=== PATIENT | female | born 1935 | race Caucasian/White ===

== ENCOUNTER → 2016-07-08 | Outpatient (CLI) | payer BC ==
[~2016-07-08] MED LIST: ATV1 PO; BNC40 PO; CALCTAB5 PO; CETI10TA84 PO; CHOL100040 PO; DLN100 PO; LEVO50TA6 PO; LSX20 PO; PHEN16.2 PO; TNR50 PO
[2016-07-08 13:26] LABS: BASO % 0.9 %; BASO ABS # 0.07 K/uL (0-0.2); COMPLETE YES; EOS % 3.9 %; HEMATOCRIT 38.2 % (37-47); IG% 0.4 %; LYMPH % 43.5 %; LYMPH ABS # 3.34 K/uL (1.2-3.4); MEAN CELL VOLUME 97.7 fL (80-100); MEAN CORPUSCULAR HEMOGLOBIN 33.5 pg (25-34); MEAN CORPUSCULAR HGB CONC 34.3 g/dl (32-36); MEAN PLATELET VOLUME 10.2 fL (7.4-10.4); MONO % 11.9 %; NEUT % 39.4 %; PLATELET COUNT 211 K/uL (130-400); RED BLOOD COUNT 3.91 M/uL (4.2-5.4); WHITE BLOOD COUNT 7.67 K/uL (4.8-10.8)
[2016-07-08 14:25] LABS: PHENOBARBITAL 21.3 mcg/mL (15.0-40.0)
[2016-07-08 15:03] LABS: ALT/SGPT 24 U/L (12-78); AST/SGOT 21 U/L (15-37); BLOOD UREA NITROGEN 12 mg/dl (7-18); BUN/CREATININE RATIO 14.6 (10-20); CALCIUM 8.5 mg/dl (8.5-10.1); CARBON DIOXIDE 29 mmol/L (21-32); CHLORIDE 100 mmol/L (98-107); CHOLESTEROL 254 mg/dl (0-200); CHOLESTEROL/HDL RATIO 2.9; CREATININE 0.83 mg/dl (0.60-1.20); GLUCOSE 72 mg/dl (70-99); HDL CHOLESTEROL 88 mg/dl; LDL CHOLESTEROL CALCULATED 147 mg/dl; POTASSIUM 4.2 mmol/L (3.5-5.1); SODIUM 135 mmol/L (136-145); TRIGLYCERIDES 95 mg/dl (0-150); VERY LOW DENSITY LIPOPROT CALC 19 mg/dl
[2016-07-08 15:13] LABS: ALB/GLOB RATIO 1.1 (0.9-2); ALKALINE PHOSPHATASE 95 U/L (45-117)
--- NOTE | 2016-07-15 07:03 | CODING QUERY MEDICAL NECESSITY ---
CQSUPPORTING DIAGNOSIS NEEDED A supporting diagnosis is required for the test/procedure performed on this patient in order for us to be reimbursed by the patient's insurance. Please provide a supporting diagnosis for the following test/procedure listed below next to the test name along with your signature. *If there is no additional diagnosis for this patient that would support the following test/procedure please document that below next to the test/procedure. Test(s)/Procedure(s) that require a supporting diagnosis: DOS 07/08/16 CONTROLLED SUBSTANCE (PHENOBARBITOL) Provider Signature: Date: Thank you Sandie Ragsdale Health Information Management Once completed, please kindly fax back to [phone] For questions please call [phone]
== END | disposition home or self-care (01) ==
LOC: C.LABBC 11:32
PROVIDERS: ATTEND Internal Medicine Geriatric Medicine
DX: I10 Essential (primary) hypertension (principal); E78.5 Hyperlipidemia, unspecified; M81.0 Age-related osteoporosis without current pathological fracture; E55.9 Vitamin D deficiency, unspecified; E03.9 Hypothyroidism, unspecified; K80.20 Calculus of gallbladder without cholecystitis without obstruction

== ENCOUNTER → 2016-07-23 | Outpatient (CLI) | payer BC | END | disposition home or self-care (01) | LOC: C.LABBC 13:54 | PROVIDERS: ATTEND Internal Medicine Geriatric Medicine | DX: G40.909 Epilepsy, unspecified, not intractable, without status epilepticus (principal) ==

== ENCOUNTER → 2016-08-05 | Outpatient (CLI) | payer BC | END | disposition home or self-care (01) | LOC: C.LABSPEC 11:10 | PROVIDERS: ATTEND Internal Medicine Geriatric Medicine | DX: I10 Essential (primary) hypertension (principal) ==

== ENCOUNTER → 2016-08-12 | Outpatient (CLI) | payer BC ==
[2016-08-12 14:51] LABS: BLOOD UREA NITROGEN 11 mg/dl (7-18); BUN/CREATININE RATIO 12.6 (10-20); CALCIUM 9.3 mg/dl (8.5-10.1); CARBON DIOXIDE 32 mmol/L (21-32); CHLORIDE 101 mmol/L (98-107); CREATININE 0.86 mg/dl (0.60-1.20); GLUCOSE 98 mg/dl (70-99); POTASSIUM 3.5 mmol/L (3.5-5.1); SODIUM 138 mmol/L (136-145)
== END | disposition home or self-care (01) ==
LOC: C.LAB 09:19
PROVIDERS: ATTEND Physician Assistant Medical
DX: G40.909 Epilepsy, unspecified, not intractable, without status epilepticus (principal)

== ENCOUNTER → 2016-11-18 | Outpatient (CLI) | payer BC ==
--- NOTE | 2016-11-18 15:24 | MAMMOGRAPHY REPORT ---
BILATERAL DIGITAL SCREENING MAMMOGRAM WITH CAD: 11/18/2016 CLINICAL HISTORY: Routine screening. Patient has no complaints. TECHNIQUE: Bilateral CC and MLO views were obtained. Current study was also evaluated with a Compute r Aided Detection (CAD) system. COMPARISON: Comparison is made to exams dated: 11/17/2015 mammogram, 10/31/2014 mammogram, 10/29/2013 cassia mogram, 10/28/2012 mammogram, 10/28/2011 mammogram, and 10/26/2010 mammogram - [facility]. BREAST COMPOSITION: The tissue of both breasts is almost entirely fatty. FINDINGS: There are scattered round microcalcifications bilaterally, stable compared to prior mammogr ams. No new suspicious mass, architectural distortion or cluster of microcalcifications is seen. IMPRESSION: ACR BI-RADS CATEGORY 1: NEGATIVE There is no mammographic evidence of malignancy. A 1 year screening mammogram is recommended. The pa tient will receive written notification of the results. Approximately 10% of breast cancers are not detected with mammography. A negative mammographic report should not delay biopsy if a clinically suggestive mass is present. Kavita Starkey M.D. ay/:11/18/2016 12:47:40 Upholstery Trimmer: Heidi GARCÍA(R)(M), [facility] letter sent: Normal 1/2 BI-RADS Code: ACR BI-RADS Category 1: Negative
== END | disposition home or self-care (01) ==
LOC: C.MAMM 12:16
PROVIDERS: ATTEND Internal Medicine Geriatric Medicine
DX: Z12.31 Encounter for screening mammogram for malignant neoplasm of breast (principal)

== ENCOUNTER → 2017-01-18 | Outpatient (CLI) | payer BC | END | disposition home or self-care (01) | LOC: C.LABBC 11:25 | PROVIDERS: ATTEND Internal Medicine Geriatric Medicine | DX: D47.2 Monoclonal gammopathy (principal) ==

== ENCOUNTER → 2017-06-06 | Outpatient (CLI) | payer BC ==
[2017-06-06 17:40] LABS: ALBUMIN 3.6 gm/dl (3.4-5.0); ALT/SGPT 22 U/L (12-78); BLOOD UREA NITROGEN 13 mg/dl (7-18); CALCIUM 9.1 mg/dl (8.5-10.1); CARBON DIOXIDE 31 mmol/L (21-32); CHOLESTEROL 241 mg/dl (0-200); CREATININE 0.74 mg/dl (0.60-1.20); GLUCOSE 77 mg/dl (70-99); POTASSIUM 4.4 mmol/L (3.5-5.1); SODIUM 138 mmol/L (136-145)
[2017-06-06 17:43] LABS: ALKALINE PHOSPHATASE 96 U/L (45-117); AST/SGOT 20 U/L (15-37); LDL CHOLESTEROL CALCULATED 128 mg/dl; TOTAL PROTEIN 7.5 gm/dl (6.4-8.2)
== END | disposition home or self-care (01) ==
LOC: C.LAB1850 16:29
PROVIDERS: ATTEND Physician Assistant Medical
DX: I10 Essential (primary) hypertension (principal); E78.5 Hyperlipidemia, unspecified; E03.9 Hypothyroidism, unspecified; G40.909 Epilepsy, unspecified, not intractable, without status epilepticus

== ENCOUNTER → 2017-06-11 | Outpatient (CLI) | payer BC ==
--- NOTE | 2017-06-11 16:02 | DIAGNOSTIC IMAGING REPORT ---
BILATERAL LOWER EXTREMITY VENOUS DOPPLER HISTORY: R60.0 Bilateral edema of lower extremity COMPARISON STUDY: None. FINDINGS: There is normal compressibility, flow, and augmentation within the bilateral lower extremity deep venous systems. IMPRESSION: No DVT within the right or left lower extremity. Electronically signed by: Sanju Riley M.D. 06/11/2017 4:00 PM Dictated Date/Time: 06/11/2017 4:00 PM
== END | disposition home or self-care (01) ==
LOC: C.ULTRBC 15:04
PROVIDERS: ATTEND Internal Medicine Geriatric Medicine
DX: R60.0 Localized edema (principal)

== ENCOUNTER → 2017-11-11 | Day surgery (SDC) | payer BC ==
[2017-10-07 10:14] VITALS: Ht 152.4 cm; Wt 74.1 kg
[~2017-11-11] VITALS: Ht 152.4 cm; Wt 74.1 kg
[~2017-11-11] MED LIST changes: +500ML BSS 0.3ML EPI 1:1000PF IRRIG ONE; +ACETAMINOPHEN 325 MG TAB PO PRN; +AMVISC PLAIN 0.8ML SYRINGE INT OCU ONE; +AMVISC PLUS 0.8ML SYRINGE INT OCU ONE; +ATROPINE SULFATE 0.1 MG/ML 5ML SYR IV PRN; -BNC40 PO; +BSS FLUSH ONE; +CALC600T9 PO; -CALCTAB5 PO; -CETI10TA84 PO; -CHOL100040 PO; +CHOL1TAB79 PO; +EpHEDrine SULFATE INJ 50 MG/ML AMP IV PRN; +EpINEphrine INJ 1MG/ML AMP 1 MG/ML AMP ONE; +GABA-112 PO; +LACTATED RINGER'S 1000ML 500 ML IV SCH; +LIDOCAINE 3.5% OPH GEL PER APPLICATION CHARGE ONE; +LIDOCAINE HCL 1% MPF 2 ML VIAL ONE; +LOSA1TAB38 PO; -LSX20 PO; +MIDAZOLAM HCL 1 MG/ML 2ML VIAL ONE; +POVIDONE-IODINE OP SOLN 30 ML BTL ONE; +PROPARACAINE 0.5% OP SOLN PER DROP CHARGE OPR SCH; +TOBRAMYCIN/DEXAMETHASONE OPH OINT PER APPLN CHARGE ONE
[2017-11-11] MEDS: PHENYLEPHRINE HCL 2.5% OP SOLN PER DROP CHARGE OPR SCH ×2 (11:07→11:12)
[2017-11-11] MEDS: TROPICAMIDE 1% OP SOLN PER DROP CHARGE OPR SCH ×2 (11:08→11:13)
[2017-11-11] MEDS: CYCLOPENTOLATE HCL 1% OP SOLN PER DROP CHARGE OPR SCH ×2 (11:09→11:14)
[2017-11-11] MEDS: KETOROLAC 0.5% OP SOLN PER DROP CHARGE OPR SCH ×2 (11:10→11:15)
[2017-11-11] MEDS: GATIFLOXACIN OP SOLN PER DROP CHARGE OPR SCH ×2 (11:11→11:19)
--- NOTE | 2017-11-11 11:38 | History & Physical Bridge - SC ---
H&P Re-Evaluation Bridge Note: I have examined the patient, reviewed the History & Physical and in the interval since the performance of the History & Physical I have noted the following changes of clinical significance: No changes noted
--- NOTE | 2017-11-11 12:13 | [facility] Operative Report ---
Operative Report Date of Service Nov 11, 2017. Operative Report 1. PREOPERATIVE DIAGNOSIS: Cataract of the right eye. 2. POSTOPERATIVE DIAGNOSIS: Same. 3. PROCEDURE: Phacoemulsification with intraocular lens implantation of the right eye. SURGEON: Dr. Sherman Rodrigez. ANESTHESIA: Topical Lidocaine gel, 1% Non- Preserved intracameral Lidocaine, and monitored intravenous sedation. INDICATIONS FOR THE PROCEDURE: The patient is a 82 - year-old female with a history of cataract of the right eye causing significant visual impairment. The details of the proposed procedure were explained to the patient who asked appropriate questions and following discussion of all risks, benefits and alternatives agreed to have the procedure done. Patient had corneal astigmatism and therefore elected to have a toric lens placed. 4. OPERATION AND FINDINGS: DESCRIPTION OF PROCEDURE: After informed consent was obtained, the patient was placed in an upright position and the cornea was marked at 70 degrees using the [employer] corneal marking tool. The patient was brought to the Operating Room at the [facility]. The patient was placed in a supine position and then the right eye was prepped and draped in the usual sterile fashion for intraocular surgery. A drop of topical Lidocaine gel was placed in the operative eye. A wire lid speculum was then placed in the fornices. A corneal paracentesis was then created temporally. The Non-Preserved Lidocaine was then instilled into the anterior chamber. The anterior chamber was then pressurized with viscoelastic. A 2.0 mm clear corneal incision was then created temporally. A cystotome was inserted into the anterior chamber and used to create a tear in the anterior lens capsule. This capsular tear was then used to create a small flap and the flap was dragged in a counterclockwise direction in order to create a continuous curvilinear capsulorrhexis. Hydrodissection was accomplished with balanced salt solution. Phacoemulsification of the lens nucleus was then performed in a standard [id number] technique. The phaco time was 26 seconds with an average power of 18 %. The remaining cortical material was removed using irrigation aspiration. The capsular bag was then filled with viscoelastic. A Manuel [id number] +23.0 diopters lens was then loaded into the injector and injected into the capsular bag. The remaining viscoelastic was removed with the irrigation aspiration handpiece. The lens was aligned with the previously made corneal thakkar. The wound was hydrated and then checked and found to be watertight. The intraocular pressure was checked and found to be adequate. The wire lid speculum was removed and the patient's face was cleaned and dried. TobraDex ointment was placed in the inferior fornix. The patient was discharged to the Recovery Room having tolerated the procedure well. There were no complications. The patient will be seen tomorrow in the office for follow-up. I attest to the content of the Intraoperative Record and any orders documented therein. Any exceptions are noted below.
--- NOTE | 2017-11-11 12:14 | Discharge Instructions-SurgCtr ---
Discharge Instructions Date of Service Nov 11, 2017. Visit Reason for Visit: Cataract Right Eye Discharge Discharge Diagnosis / Problem: cataract Discharge Goals Goal(s): Improve function Activity Recommendations Activity Limitations: per Instructions/Follow-up section Anesthesia . Post Anesthesia Instructions: If you have had General Anesthesia or IV Sedation: * Do not drive today. * Resume driving when surgeon permits. * Do not make important decisions or sign legal documents today. * Call surgeon for: 1. Temperature elevations greater than 101 degrees F. 2. Uncontrollable pain. 3. Excessive bleeding. 4. Persistent nausea and vomiting. 5. Medication intolerance (nausea, vomiting or rash). * For nausea and vomiting use only clear liquids such as: tea, soda, bouillon until nausea subsides, then gradually increase diet as tolerated. * If you have any concerns or questions, call your surgeon's office. If physician is unavailable and it is an emergency, call 911 or go to the nearest emergency room. . Diet Recommendations Home Diet: resume previous diet Procedures Procedures Performed: Right Cataract Phacoemulsification With Intraocular Lens Implant; Toric Lens Pending Studies Studies pending at discharge: no Medical Emergencies . Who to Call and When: Medical Emergencies: If at any time you feel your situation is an emergency, please call 911 immediately. . Non-Emergent Contact Non-Emergency issues call your: Intelligence Chief . . "Provider Documentation" section prepared by Sherman Rodrigez. .
[2017-11-11 12:16] VITALS: TEMP 36.6
--- NOTE | 2017-11-11 12:19 | Anesthesia Progress Nt - [facility] ---
Anesthesia Post Op Note Date & Time Nov 11, 2017 at 12:19 Vital Signs Pain Intensity: 0 Vital Signs Past 12 Hours Date Time Temp Pulse Resp B/P (MAP) Pulse Ox O2 Delivery O2 Flow Rate FiO2 11/11/17 11:01 36.6 47 20 160/84 (109) 100 Room Air Notes Mental Status: alert / awake / arousable, participated in evaluation Pt Amnestic to Procedure: Yes Nausea / Vomiting: adequately controlled Pain: adequately controlled Airway Patency, RR, SpO2: stable & adequate BP & HR: stable & adequate Hydration State: stable & adequate Anesthetic Complications: no major complications apparent
[2017-11-11 12:40] VITALS: BP 143/52; PULSE 43; O2SAT 98
== END | disposition home or self-care (01) ==
LOC: X.SURG 10:25
PROVIDERS: ATTEND Ophthalmology
DX: H26.9 Unspecified cataract (principal); I10 Essential (primary) hypertension; E03.9 Hypothyroidism, unspecified; F41.9 Anxiety disorder, unspecified; M19.90 Unspecified osteoarthritis, unspecified site

== ENCOUNTER 2020-09-05 14:18 | Inpatient (IN) ==
[2020-09-05] MEDS ORDERED: KETOROLAC TROMETHAMINE 15 MG/ML VIAL IV STA (15:35)
[2020-09-05] MEDS ORDERED: ONDANSETRON INJ 2 MG/ML 2 ML VIAL IV STA (15:35)
[2020-09-05] MEDS: SODIUM CHLORIDE 0.9% 500 ML IV SCH (15:43)
[2020-09-05 15:44] LABS: Appearance Urine Clear (Clear); Bilirubin Urine Negative (Negative); Blood Urine Negative (Negative); Color Urine Yellow; Glucose Urine UA Negative (Negative); Hematocrit (blood only) 40.4 % (37-47); Ketones Urine Negative (Negative); Leukocyte Esterase Urine Negative (Negative); Mean Corpuscular Hemoglobin 33.9 pg (25-34); Mean Corpuscular Hgb Conc 34.7 g/dL (32-36); Mean Corpuscular Volume 97.8 fL (80-100); Mean Platelet Volume 9.7 fL (7.4-10.4); Nitrite Urine Negative (Negative); Platelet Count 198 K/uL (130-400); Protein Urine Negative (Negative); RDW Coefficient of Variation 12.8 % (11.5-14.5); RDW Standard Deviation 46.1 fL (36.4-46.3); Red Blood Count 4.13 M/uL (4.2-5.4); Urobilinogen Urine Negative (Negative); White Blood Count 6.46 K/uL (4.8-10.8)
[2020-09-05 15:59] LABS: Albumin Level 4.1 gm/dl (3.4-5.0); BUN Creatinine Ratio 13.3 (10-20); Bilirubin Direct 1.9 mg/dl (0-0.2); Calcium 8.4 mg/dl (8.5-10.1); Creatinine Clr Calc Pharmacy 52.2 ml/min; Est GFR (African American) 82.9 ml/min; Est GFR (Non-African American) 71.5 ml/min; Potassium 3.6 mmol/L (3.5-5.1)
[2020-09-05 16:02] LABS: Bilirubin,Total 2.4 mg/dl (0.2-1)
[2020-09-05 16:09] LABS: Partial Thromboplastin Time 27.3 Seconds (21.0-31.0); Prothrombin Time 10.3 Seconds (9.0-12.0)
--- NOTE | 2020-09-05 16:38 | Emergency Department Note ---
History of Present Illness General Chief Complaint: Flank Pain Stated Complaint: FLANK, BACK PAIN Time Seen by Provider: 09/05/20 15:30 History of Present Illness Provider Complaint: abdominal pain Onset (ago): 2 day(s) Pain Consistency: constant Location: RUQ Radiation: back Severity: moderate Maximum Pain Intensity: 4 Current Pain Intensity: 4 Quality: + stabbing, + aching, + sharp and + dull Relieved By: + nothing Exacerbated By: + nothing Context: no foreign travel, no possible food poisoning, no recent antibiotic use, no recent surgery/procedure and no recent injury Associated Symptoms: + nausea and + back pain; no vomiting, no diarrhea, no fever, no chills, no constipation, no dysuria, no hematemesis, no hematochezia, no melena, no hematuria, no anorexia, no syncope, no headache, no neck pain, no chest pain, no breathing difficulty and no numbness Home Medications Medication Instructions Recorded Confirmed Type cholecalciferol (vitamin D3) 50 2,000 units PO DAILY tab 02/11/19 09/05/20 History mcg (2,000 unit) tablet acetaminophen 500 mg tablet 500 mg PO Q6H PRN 07/14/19 09/05/20 History calcium carb 300 mg-D3 800 1 tab PO DAILY 07/14/19 09/05/20 History unit-mag ox 25 mg-copyright expert 0.5 mg-luis-Zn tablet ibuprofen 200 mg tablet 200 mg PO Q6H PRN #7 tab 08/09/19 09/05/20 Rx phenytoin sodium extended 100 mg 100 mg PO TID #90 cap 01/17/20 09/05/20 Rx capsule gabapentin 100 mg capsule 100 mg PO DAILY PRN cap 02/04/20 09/05/20 History phenobarbital 16.2 mg tablet 16.2 mg PO .COMPLEX #450 tab 04/26/20 09/05/20 Rx levothyroxine 50 mcg tablet 50 mcg PO DAILY #90 tab 05/11/20 09/05/20 Rx lorazepam 1 mg tablet 0.5 - 1 mg PO DAILY PRN 30 Days 06/13/20 09/05/20 Rx #30 tab atenolol 50 mg tablet 50 mg PO DAILY #90 tab 07/19/20 09/05/20 Rx telmisartan 80 mg tablet 80 mg PO DAILY #90 tab 08/02/20 09/05/20 Rx Allergies Allergy/AdvReac Type Severity Reaction Status Date / Time hydrochlorothiazide AdvReac Severe seizure Verified 09/05/20 16:06 activity amlodipine AdvReac Intermediate Dizziness Verified 09/05/20 16:06 enalapril AdvReac Intermediate cough Verified 09/05/20 16:06 Past Med/Surg History Medical History Abdominal pain, epigastric Chest pain Hypertension Hypothyroidism Lumbar spinal stenosis 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 Mother No problems noted. Brother Myocardial infarction Other No pertinent family history Denies family history of Ovarian cancer Prostate cancer Breast cancer Lung cancer Colorectal cancer Social History Smoking Status: Never smoker Second Hand Exposure: No; Hx Alcohol Use: No Hx Substance Use: No Preferred Language: Arabic Communication Ability: Effective Visual Impairment: Limited Hearing Ability: Normal Material Checker Required: No Beliefs That Will Affect Care: None marital status: / Current Living Situation: Family Current Living Situation Comment: lives with son current occupational status: retired How many Children do You have: 2 Feels Safe at Home: Yes Childhood Exposure to Second-Hand Smoke: No Diet Comment: Regular diet caffeine: Yes (coffee) Dental Care, Regularly: Yes Physical Activity Frequency: 1-2 Times per Week Seatbelt Use: always Sunscreen Use: Yes Assistive Devices: Cane and Glasses Review of Systems A total of 10 systems reviewed and were otherwise negative Physical Exam Vital Signs: Vital Signs - 24 hr 09/05/20 14:19 09/05/20 16:00 09/05/20 16:02 Temperature 36.5 C Temperature Source Temporal Artery Sc an Pulse Rate 57 L 51 L 50 L Pulse Rate from Sp O2 Sensor 51 L 49 L Respiratory Rate 18 2 L 1 L Blood Pressure 210/84 H 207/83 H Blood Pressure Feli n 126 124 Pulse Oximetry 97 97 98 Oxygen Delivery Me thod Room Air Sepsis Recent Feve r Within 48 Hours No Sepsis New/Unexpla ined Change in Men génesis Status No Sepsis Action Take n by Nursing No Action Required 09/05/20 16:10 09/05/20 16:16 09/05/20 16:20 Temperature Temperature Source Pulse Rate 53 L 57 L 56 L Pulse Rate from Sp O2 Sensor 53 L 53 L 54 L Respiratory Rate 16 15 14 Blood Pressure 184/76 H Blood Pressure Feli n 112 Pulse Oximetry 98 98 98 Oxygen Delivery Me thod Sepsis Recent Feve r Within 48 Hours Sepsis New/Unexpla ined Change in Men génesis Status Sepsis Action Take n by Nursing 09/05/20 16:30 09/05/20 16:40 09/05/20 16:50 Temperature Temperature Source Pulse Rate 60 50 L 49 L Pulse Rate from Sp O2 Sensor 55 L 50 L 49 L Respiratory Rate 22 18 20 Blood Pressure Blood Pressure Feli n Pulse Oximetry 93 97 98 Oxygen Delivery Me thod Sepsis Recent Feve r Within 48 Hours Sepsis New/Unexpla ined Change in Men génesis Status Sepsis Action Take n by Nursing 09/05/20 17:00 09/05/20 18:02 09/05/20 18:05 Temperature Temperature Source Pulse Rate 49 L 60 Pulse Rate from Sp O2 Sensor 49 L 59 L Respiratory Rate 18 21 19 Blood Pressure 154/77 H Blood Pressure Feli n 102 Pulse Oximetry 97 99 Oxygen Delivery Me thod Sepsis Recent Feve r Within 48 Hours Sepsis New/Unexpla ined Change in Men génesis Status Sepsis Action Take n by Nursing 09/05/20 18:10 09/05/20 18:15 09/05/20 18:20 Temperature Temperature Source Pulse Rate 61 58 L 55 L Pulse Rate from Sp O2 Sensor 61 60 55 L Respiratory Rate 22 13 18 Blood Pressure 140/61 Blood Pressure Feli n 87 Pulse Oximetry 98 99 98 Oxygen Delivery Me thod Sepsis Recent Feve r Within 48 Hours Sepsis New/Unexpla ined Change in Men génesis Status Sepsis Action Take n by Nursing Physical Exam: Physical Exam GENERAL: She is oriented to person, place, and time. She appears well-developed and well-nourished. She does not appear distressed. HENT: Exam performed. -Head: Normocephalic and atraumatic. -Right Ear: External ear normal. No mastoid tenderness. -Left Ear: External ear normal. No mastoid tenderness. -Mouth/Throat: The oropharynx is clear and moist. No trismus in the jaw. No dental abscesses or uvula swelling. No oropharyngeal exudate or tonsillar abscesses. EYES: Conjunctivae and EOM are normal. Pupils are equal, round, and reactive to light. Right eye exhibits no discharge. Left eye exhibits no discharge. scleral icterus. NECK: Normal range of motion. Neck supple. No JVD present. No spinous process tenderness present. No carotid bruit present. No rigidity. No tracheal deviation and normal range of motion present. No Brudzinski's sign and no Kernig's sign noted. CV: Normal rate, regular rhythm, normal heart sounds and intact distal pulses. There is no peripheral edema. Palpable radial pulses bue. PULM/CHEST: Effort normal and breath sounds normal. No respiratory distress. No stridor. She has no wheezes. She has no rales. -Chest Wall: She exhibits no tenderness. ABD: The abdomen is soft. Bowel sounds are normal. She has no distension. No mass is present. There is t to palpation of the right upper quadrant and epigastric area enderness. There is no rebound, no guarding, and no tenderness at McBurney's point. Rovsig negative MUSC/SKEL: Normal range of motion. There is no peripheral edema, tenderness or deformity. LYMPH: No cervical adenopathy. NEURO: She is alert and oriented to person, place, and time. She has normal strength. No cranial nerve deficit or sensory deficit. Coordination and gait normal. GCS eye subscore is 4. GCS verbal subscore is 5. GCS motor subscore is 6. Cerebellar tests wnl. SKIN: Patient appears jaundiced PSYCH: She has a normal mood and affect. Behavior is normal. Judgment and thought content normal. Course Course 1529: The patient was evaluated in room B3. A complete history and physical exam was performed Cardiac monitoring: An order was placed for continuous cardiac monitoring. The monitor shows a rate of 60 with sinus rhythm Administered Medications Sodium Chloride (Nss) 500 mls @ 125 mls/hr IV .Q4H EDWARD Stop: 10/05/20 15:44 Last Admin: 09/05/20 15:43 Dose: 125 mls/hr Documented by: [id number] Discontinued Medications Ketorolac Tromethamine (Ketorolac Tromethamine 15 Mg/Ml Vial) 15 mg IV NOW STA Stop: 09/05/20 15:36 Last Admin: 09/05/20 15:43 Dose: 15 mg Documented by: [id number] Ondansetron HCl (Ondansetron Inj 2 Mg/Ml 2 Ml Vial) 4 mg IV NOW STA Stop: 09/05/20 15:36 Last Admin: 09/05/20 15:43 Dose: 4 mg Documented by: [id number] Medical Decision Making Laboratory Data Result diagrams: 09/05/20 15:34 09/05/20 15:35 Lab Results 09/05/20 09/05/20 09/05/20 Range/Units 15:34 15:34 15:35 WBC 6.46 (4.8-10.8) K/uL RBC 4.13 L (4.2-5.4) M/uL Hgb 14.0 (12.0-16.0) g/dL Hct 40.4 (37-47) % MCV 97.8 (80-100) fL MCH 33.9 (25-34) pg MCHC 34.7 (32-36) g/dL RDW Std Deviation 46.1 (36.4-46.3) fL RDW Coeff of José Miguel 12.8 (11.5-14.5) % Plt Count 198 (130-400) K/uL MPV 9.7 (7.4-10.4) fL PT (9.0-12.0) Seconds INR (0.9-1.1) APTT (21.0-31.0) Seconds PTT Ratio Sodium 129 L (136-145) mmol/L Potassium 3.6 (3.5-5.1) mmol/L Chloride 93 L (98-107) mmol/L Carbon Dioxide 29 (21-32) mmol/L Anion Gap 7.0 (3-11) BUN 10 (7-18) mg/dl Creatinine 0.76 (0.6-1.2) mg/dl Est Cr Clr Drug Dosing 52.2 ml/min Est GFR ( Amer) 82.9 ml/min Est GFR (Non-Af Amer) 71.5 ml/min BUN/Creatinine Ratio 13.3 (10-20) Glucose 104 H (70-99) mg/dl Calcium 8.4 L (8.5-10.1) mg/dl Magnesium 2.0 (1.8-2.4) mg/dl Total Bilirubin 2.4 H (0.2-1) mg/dl Direct Bilirubin 1.9 H (0-0.2) mg/dl AST 390 H (15-37) U/L ALT 476 H (12-78) U/L Alkaline Phosphatase 135 H (45-117) U/L Total Protein 8.0 (6.4-8.2) gm/dl Albumin 4.1 (3.4-5.0) gm/dl Lipase 150 (73-393) U/L Urine Color Yellow Urine Appearance Clear (Clear) Urine pH 8.0 H (4.5-7.5) Ur Specific [place] 1.010 (1.000-1.030) Urine Protein Negative (Negative) Urine Glucose (UA) Negative (Negative) Urine Ketones Negative (Negative) Urine Blood Negative (Negative) Urine Nitrite Negative (Negative) Urine Bilirubin Negative (Negative) Urine Urobilinogen Negative (Negative) Ur Leukocyte Esterase Negative (Negative) COVID-19 Eval Order 09/05/20 09/05/20 Range/Units 15:42 18:01 WBC (4.8-10.8) K/uL RBC (4.2-5.4) M/uL Hgb (12.0-16.0) g/dL Hct (37-47) % MCV (80-100) fL MCH (25-34) pg MCHC (32-36) g/dL RDW Std Deviation (36.4-46.3) fL RDW Coeff of José Miguel (11.5-14.5) % Plt Count (130-400) K/uL MPV (7.4-10.4) fL PT 10.3 (9.0-12.0) Seconds INR 1.0 (0.9-1.1) APTT 27.3 (21.0-31.0) Seconds PTT Ratio 1.0 Sodium (136-145) mmol/L Potassium (3.5-5.1) mmol/L Chloride (98-107) mmol/L Carbon Dioxide (21-32) mmol/L Anion Gap (3-11) BUN (7-18) mg/dl Creatinine (0.6-1.2) mg/dl Est Cr Clr Drug Dosing ml/min Est GFR ( Amer) ml/min Est GFR (Non-Af Amer) ml/min BUN/Creatinine Ratio (10-20) Glucose (70-99) mg/dl Calcium (8.5-10.1) mg/dl Magnesium (1.8-2.4) mg/dl Total Bilirubin (0.2-1) mg/dl Direct Bilirubin (0-0.2) mg/dl AST (15-37) U/L ALT (12-78) U/L Alkaline Phosphatase (45-117) U/L Total Protein (6.4-8.2) gm/dl Albumin (3.4-5.0) gm/dl Lipase (73-393) U/L Urine Color Urine Appearance (Clear) Urine pH (4.5-7.5) Ur Specific [place] (1.000-1.030) Urine Protein (Negative) Urine Glucose (UA) (Negative) Urine Ketones (Negative) Urine Blood (Negative) Urine Nitrite (Negative) Urine Bilirubin (Negative) Urine Urobilinogen (Negative) Ur Leukocyte Esterase (Negative) COVID-19 Eval Order Covid19 at [facility] Imaging Data Radiologist's Impression: Chest/Abdomen X-ray 09/05/20 15:35 CHEST AND ABDOMEN 2 VIEWS HISTORY: epigastric pain COMPARISON: [facility] 04/04/2020. FINDINGS: No pneumothorax. No pleural effusions. The cardiac silhouette is mildly enlarged. There is mild diffuse interstitial thickening which is likely chronic. No focal lung consolidations to suggest pneumonia. No evidence for pulmonary edema. No pneumoperitoneum. No pneumatosis. Moderate osteoarthritis within the bilateral hips. There are suture material within the right lower quadrant. Moderate well-formed stool seen within the colon. No renal or ureteral calculi. IMPRESSION: 1. Mild cardiomegaly. Otherwise, no acute process within the chest. 2. No evidence for bowel obstruction. ACT 112: Negative or not required by law. Electronically signed by: Sanju Riley M.D. 09/05/2020 6:01 PM Gallbladder Ultrasound 09/05/20 15:35 ABDOMINAL ULTRASOUND, RIGHT UPPER QUADRANT HISTORY: Right upper quadrant abdominal pain.. COMPARISON: Abdomen and pelvis CT 04/04/2020. FINDINGS: Pancreas: The pancreas demonstrates a normal echotexture. Liver: Unremarkable. Gallbladder: Multiple stones identified with the largest measuring 2.4 cm. Borderline thickened gallbladder wall measuring up to 3 mm. No pericholecystic fluid. Unable to definitely assess for a sonographic Carias's sign given the previous administration of pain medication. CBD: 7 mm. This is considered to be within the range normal limits given the patient's age. Right kidney: Moderate cortical thinning and slightly echogenic. This is likely chronic. No hydronephrosis. IMPRESSION: 1. Cholelithiasis with a borderline thickened gallbladder wall. 2. Normal caliber common bile duct for age. ACT 112: Negative or not required by law. Electronically signed by: Sanju Riley M.D. 09/05/2020 5:31 PM ECG Data Indication: abdominal pain Rate (beats per minute): 50 Rhythm: normal sinus Findings: + 1st degree AV block; no ST depression, no ST elevation and no prolonged QT MDM Narrative Vital signs stable. Labs show a elevated bilirubin and direct bilirubin level. Liver function tests are elevated. Ultrasound shows a large gallstone with possible wall thickening. X-ray within normal limits. We will admit the patient to the [facility] hospitalist team Dr. Seymour. General surgery Dr. Narvaez agreed to be on consult. Impression & Plan Cholelithiasis, Jaundice Discharge Plan Visit Data Chief Complaint: Flank Pain Stated Complaint: FLANK, BACK PAIN ED Provider: Bolivar James Discharge Problem: Cholelithiasis, Jaundice Patient Disposition: Being Evaluated by Hospitalist Forms Stand Alone Forms: My [facility] Prescriptions Prescriptions: No Action phenytoin sodium extended 100 mg capsule 100 mg PO TID Qty: 90 RF: 1 phenobarbital 16.2 mg tablet 16.2 mg PO .COMPLEX Qty: 450 RF: 0 levothyroxine 50 mcg tablet 50 mcg PO DAILY Qty: 90 RF: 3 lorazepam 1 mg tablet 0.5 - 1 mg PO DAILY PRN (Reason: seizure activity) 30 Days Qty: 30 RF: 0 telmisartan 80 mg tablet 80 mg PO DAILY Qty: 90 RF: 3 gabapentin 100 mg capsule 100 mg PO DAILY PRN (Reason: Pain) RF: 0 atenolol 50 mg tablet 50 mg PO DAILY Qty: 90 RF: 3 cholecalciferol (vitamin D3) 2,000 unit tablet 2,000 units PO DAILY RF: 0 Caltrate + D3 Plus Minerals 300 mg-800 unit -25 mg-0.5 mg tablet 1 tab PO DAILY RF: 0 acetaminophen [Tylenol Extra Strength] 500 mg tablet 500 mg PO Q6H PRN (Reason: Pain) RF: 0 ibuprofen [Advil] 200 mg tablet 200 mg PO Q6H PRN (Reason: pain) Qty: 7 RF: 0 Referrals Referrals: Cyrus Gamble DO [Primary Care Provider] -
--- NOTE | 2020-09-05 17:33 | Ultrasound Report ---
ABDOMINAL ULTRASOUND, RIGHT UPPER QUADRANT HISTORY: Right upper quadrant abdominal pain.. COMPARISON: Abdomen and pelvis CT 04/04/2020. FINDINGS: Pancreas: The pancreas demonstrates a normal echotexture. Liver: Unremarkable. Gallbladder: Multiple stones identified with the largest measuring 2.4 cm. Borderline thickened gallb ladder wall measuring up to 3 mm. No pericholecystic fluid. Unable to definitely assess for a sonogra phic Carias's sign given the previous administration of pain medication. CBD: 7 mm. This is considered to be within the range normal limits given the patient's age. Right kidney: Moderate cortical thinning and slightly echogenic. This is likely chronic. No hydroneph rosis. IMPRESSION: 1. Cholelithiasis with a borderline thickened gallbladder wall. 2. Normal caliber common bile duct for age. ACT 112: Negative or not required by law. Electronically signed by: Sanju Riley M.D. 09/05/2020 5:31 PM
--- NOTE | 2020-09-05 18:02 | XRay Report ---
CHEST AND ABDOMEN 2 VIEWS HISTORY: epigastric pain COMPARISON: [facility] 04/04/2020. FINDINGS: No pneumothorax. No pleural effusions. The cardiac silhouette is mildly enlarged. There is mild diffuse interstitial thickening which is likely chronic. No focal lung consolidations to suggest pneumonia. No evidence for pulmonary edema. No pneumoperitoneum. No pneumatosis. Moderate osteoarthr itis within the bilateral hips. There are suture material within the right lower quadrant. Moderate w ell-formed stool seen within the colon. No renal or ureteral calculi. IMPRESSION: 1. Mild cardiomegaly. Otherwise, no acute process within the chest. 2. No evidence for bowel obstruction. ACT 112: Negative or not required by law. Electronically signed by: Sanju Riley M.D. 09/05/2020 6:01 PM
--- NOTE | 2020-09-05 18:27 | History & Physical Report ---
Date of Service September 05, 2020 Assessment & Plan (1) RUQ pain: Consider biliary colic, possible chronic cholecystitis. Abnormal LFTs suggest possible biliary obstruction although none seen on ultrasound Admit to monitored bed Check MRCP Follow LFTs Keep n.p.o., okay to hydrate with normal saline Okay for further analgesia with Toradol as needed give IV Zosyn empirically for now We will consult general surgery and GI for further recommendations (2) Hypertension: Blood pressures were elevated, likely secondary to pain Oral BP meds with a small sip of water, patient is on atenolol and telmisartan (3) Seizure disorder: Continue oral Dilantin and phenobarbital. These can be converted to IV if needed (4) Hypothyroidism: Levothyroxine 50 mcg daily (5) Peripheral neuropathy: Patient takes gabapentin as needed. She tells me that she does better if she is able to ambulate around the room. Okay for out of bed as able History of Present Illness Chief Complaint: Abdominal pain Primary Care Provider: Cyrus Gamble DO This is an 84-year-old female with past medical history of epilepsy that presents today complaining of right upper quadrant abdominal pain. Patient is pleasant good historian. Patient tells me that the pain started approximately 10 AM today. It was sudden and very sharp without any warning. It is focused over the right upper quadrant without any radiation. She denied any nausea, vomiting, diarrhea, constipation, fever or chills. Pain persisted if not worsened slightly until she came to the emergency room and was given a dose of IV Toradol. At the time my evaluation, the pain i is mostly resolved and she is having no complaints. Allergies Allergy/AdvReac Type Severity Reaction Status Date / Time hydrochlorothiazide AdvReac Severe seizure Verified 09/05/20 16:06 activity amlodipine AdvReac Intermediate Dizziness Verified 09/05/20 16:06 enalapril AdvReac Intermediate cough Verified 09/05/20 16:06 Home Medications Medication Instructions Recorded Confirmed Type cholecalciferol (vitamin D3) 50 2,000 units PO DAILY tab 02/11/19 09/05/20 History mcg (2,000 unit) tablet acetaminophen 500 mg tablet 500 mg PO Q6H PRN 07/14/19 09/05/20 History calcium carb 300 mg-D3 800 1 tab PO DAILY 07/14/19 09/05/20 History unit-mag ox 25 mg-photostatic copy maker 0.5 mg-luis-Zn tablet ibuprofen 200 mg tablet 200 mg PO Q6H PRN #7 tab 08/09/19 09/05/20 Rx phenytoin sodium extended 100 mg 100 mg PO TID #90 cap 01/17/20 09/05/20 Rx capsule gabapentin 100 mg capsule 100 mg PO DAILY PRN cap 02/04/20 09/05/20 History phenobarbital 16.2 mg tablet 16.2 mg PO .COMPLEX #450 tab 04/26/20 09/05/20 Rx levothyroxine 50 mcg tablet 50 mcg PO DAILY #90 tab 05/11/20 09/05/20 Rx lorazepam 1 mg tablet 0.5 - 1 mg PO DAILY PRN 30 Days 06/13/20 09/05/20 Rx #30 tab atenolol 50 mg tablet 50 mg PO DAILY #90 tab 07/19/20 09/05/20 Rx telmisartan 80 mg tablet 80 mg PO DAILY #90 tab 08/02/20 09/05/20 Rx Past Med/Surg History Medical History Abdominal pain, epigastric Chest pain Hypertension Hypothyroidism Lumbar spinal stenosis 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 Mother No problems noted. Brother Myocardial infarction Other No pertinent family history Denies family history of Ovarian cancer Prostate cancer Breast cancer Lung cancer Colorectal cancer Social History Smoking Status: Never smoker Second Hand Exposure: No; Hx Alcohol Use: No Hx Substance Use: No Preferred Language: Chinese Communication Ability: Effective Visual Impairment: Limited Hearing Ability: Normal [employer] Repairer Required: No Beliefs That Will Affect Care: None marital status: / Current Living Situation: Family Current Living Situation Comment: lives with son current occupational status: retired How many Children do You have: 2 Feels Safe at Home: Yes Childhood Exposure to Second-Hand Smoke: No Diet Comment: Regular diet caffeine: Yes (coffee) Dental Care, Regularly: Yes Physical Activity Frequency: 1-2 Times per Week Seatbelt Use: always Sunscreen Use: Yes Assistive Devices: Cane and Glasses Review of Systems Constitutional: no fever, no chills, no weakness, no weight loss and no weight gain Eyes: as per Subjective / HPI Respiratory: no cough, no chest congestion, no dyspnea and no dyspnea on exertion Cardiovascular: no chest pain, no orthopnea, no palpitations, no lightheadedness and no edema Gastrointestinal: + abdominal pain and + problem reported; no nausea, no vomiting, no constipation and no diarrhea/loose stools Genitourinary: no dysuria, no difficulty urinating, no urinary frequency, no urinary hesitancy, no urinary urgency and no flank pain Musculoskeletal: no back pain, no neck pain, no joint pain, no stiffness and no myalgia Integumentary: no rash Neurologic: no gait abnormality, no unsteadiness, no falls and no generalized weakness Physical Exam Constitutional: cooperative and comfortable; no acute distress Eyes: + anicteric sclerae Neck: trachea midline, no thyromegaly Respiratory: normal respiratory effort Auscultation: lungs clear to auscultation bilaterally; no crackles, no rales, no rhonchi and no wheezes Cardiovascular: Rate/Rhythm: regular rate and regular rhythm Heart Sounds: normal S1, normal S2 and + murmur Gastrointestinal (Abdomen): Inspection/Auscultation: abdomen normal to inspection Percussion/Palpation: + abdomen tender (Mild over right upper quadrant) and abdomen soft; no guarding, abdomen not rigid and no hepatosplenomegaly Very diminished bowel sounds Skin: no rashes, warm and dry no jaundice Results & Data Results & Data ([facility]) Vital Signs (Past 12 Hours) Vital Signs Temp Pulse Resp BP Pulse Ox 09/05/20 16:30 60 22 93 09/05/20 16:20 56 L 14 98 09/05/20 16:16 57 L 15 184/76 H 98 09/05/20 16:10 53 L 16 98 09/05/20 16:02 50 L 1 L 98 09/05/20 16:00 51 L 2 L 207/83 H 97 09/05/20 14:19 36.5 C 57 L 18 210/84 H 97 Diagnostic Findings ABDOMINAL ULTRASOUND, RIGHT UPPER QUADRANT HISTORY: Right upper quadrant abdominal pain.. COMPARISON: Abdomen and pelvis CT 04/04/2020. FINDINGS: Pancreas: The pancreas demonstrates a normal echotexture. Liver: Unremarkable. Gallbladder: Multiple stones identified with the largest measuring 2.4 cm. Borderline thickened gallbladder wall measuring up to 3 mm. No pericholecystic fluid. Unable to definitely assess for a sonographic Carias's sign given the previous administration of pain medication. CBD: 7 mm. This is considered to be within the range normal limits given the patient's age. Right kidney: Moderate cortical thinning and slightly echogenic. This is likely chronic. No hydronephrosis. IMPRESSION: 1. Cholelithiasis with a borderline thickened gallbladder wall. 2. Normal caliber common bile duct for age. PG Care Time/CCT Total # of Minutes Spent Total Time Spent with Patient: Total time spent is greater than 50% in coordination of care (as documented) at patient's floor/unit and/or counseling patient: Coding Level of Care Code 71925 Initial Inpt Care Lvl 3 Diagnoses RUQ pain R10.11 Hypertension I10 Seizure disorder G40.909 Hypothyroidism E03.9 Peripheral neuropathy G62.9
[2020-09-05] MEDS ORDERED: PIPERACILL/TAZOBAC CONSULT ACTIVE PRN (21:25)
[2020-09-05] MEDS ORDERED: ONDANSETRON INJ 2 MG/ML 2 ML VIAL IV PRN (21:25)
[2020-09-05] MEDS ORDERED: GABAPENTIN 100 MG CAP PO PRN (21:25)
[2020-09-05] MEDS ORDERED: PIPERACILLIN/TAZOBACTAM 3.375 GM in DEXTROSE 5% 100 ML IV STA (21:46)
--- NOTE | 2020-09-05 22:16 | Surgery Consultation ---
Date of Consultation September 05, 2020 Assessment & Plan (1) Cholelithiasis: Patient has been admitted to the hospital in the hospital service proceeding as follows: Continue analgesics Continue antiemetics Continue antibiotics in the form of Zosyn Continue hydration with IV fluids Continue n.p.o. status until pending studies are completed She has gallstones identified on her gallbladder ultrasound. This with her elevated bilirubin and LFTs raising concern for possible passed gallstone or choledocholithiasis. An MRCP has been ordered to assess for choledocholithiasis which is pending. Choledocholithiasis is identified with gastroenterology consultation with potential for ERCP may be required. Cholecystectomy will likely be performed in the future once it is determined whether or not patient has choledocholithiasis. We will continue to follow the patient is hospitalized Supervising Physician Co-Signing Physician Notes I personally saw and evaluated the patient with Clifford Foy PA-C and agree with the assessment and plan. 84 yo female with likely choledocholithiasis -Await GI consult -Trend LFT's -Will plan on cholecystectomy this admission, timing TBD History of Present Illness Reason for Consultation: Abdominal pain Attending Physician: Waqas London DO History of Present Illness Is an 84-year-old female who presented to [facility] emergency department secondary to right upper quadrant abdominal pain. The patient said that the pain started approximately 10:00 in the morning yesterday. She did not identify any precipitating factors. She also does not note any palliative factors other than pain medicine that is been administered. She notes the pain does not radiate anywhere. She denies any nausea or vomiting. She has not any fevers, shakes, chills. Patient says that over the past several months she has not had any similar pain. Concerning previous abdominal surgery she says she has had an ectopic , and ovarian cyst, and an appendectomy. Since admission patient has had labs and imaging which independently viewed. CBC revealed her white blood cell count, hemoglobin, hematocrit, and platelet count were all within normal range. Coagulation studies were noted to be normal. Patient was noted to have a low sodium at 129. Potassium, BUN, and creatinine were all within normal range. Patient was noted to have elevation of her total bilirubin of 2.4 and a direct bilirubin elevated at 1.9. Her other LFTs were elevated with an AST of 390, ALT of 476, and alkaline phosphatase is 135. Lipase was noted to be normal. She did have a urinalysis that was not indicative of infection and a Covid test was negative. Patient had a chest x- ray that showed no evidence of pneumonia or CHF. She had an abdominal x-ray that showed no evidence of bowel obstruction. A gallbladder ultrasound identified cholelithiasis with borderline thickening of the gallbladder wall. That the common bile duct was normal caliber. Did question the patient that her living situation and she says that she lives in a bilevel home with all of her living facilities on one floor. She says she has underlying lower extremity neuropathy and therefore ambulates with a walker. She says when she does ambulate with her walker she does not get any signs or symptoms of CHF or unstable angina. At the time of my interview the patient was resting comfortably in bed in no distress and her pain was well controlled. Allergies Allergy/AdvReac Type Severity Reaction Status Date / Time hydrochlorothiazide AdvReac Severe seizure Verified 09/05/20 16:06 activity amlodipine AdvReac Intermediate Dizziness Verified 09/05/20 16:06 enalapril AdvReac Intermediate cough Verified 09/05/20 16:06 Home Medications Medication Instructions Recorded Confirmed Type cholecalciferol (vitamin D3) 50 2,000 units PO DAILY tab 02/11/19 09/05/20 History mcg (2,000 unit) tablet acetaminophen 500 mg tablet 500 mg PO Q6H PRN 07/14/19 09/05/20 History calcium carb 300 mg-D3 800 1 tab PO DAILY 07/14/19 09/05/20 History unit-mag ox 25 mg-copy supervisor 0.5 mg-luis-Zn tablet ibuprofen 200 mg tablet 200 mg PO Q6H PRN #7 tab 08/09/19 09/05/20 Rx phenytoin sodium extended 100 mg 100 mg PO TID #90 cap 01/17/20 09/05/20 Rx capsule gabapentin 100 mg capsule 100 mg PO DAILY PRN cap 02/04/20 09/05/20 History phenobarbital 16.2 mg tablet 16.2 mg PO .COMPLEX #450 tab 04/26/20 09/05/20 Rx levothyroxine 50 mcg tablet 50 mcg PO DAILY #90 tab 05/11/20 09/05/20 Rx lorazepam 1 mg tablet 0.5 - 1 mg PO DAILY PRN 30 Days 06/13/20 09/05/20 Rx #30 tab atenolol 50 mg tablet 50 mg PO DAILY #90 tab 07/19/20 09/05/20 Rx telmisartan 80 mg tablet 80 mg PO DAILY #90 tab 08/02/20 09/05/20 Rx Patient History Medical History Abdominal pain, epigastric Chest pain Hypertension Hypothyroidism Lumbar spinal stenosis 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 Mother No problems noted. Brother Myocardial infarction Other No pertinent family history Denies family history of Ovarian cancer Prostate cancer Breast cancer Lung cancer Colorectal cancer Social History Smoking Status: Never smoker Second Hand Exposure: No; Do You Dip or Chew Tobacco: No; Hx Alcohol Use: No Hx Substance Use: No Preferred Language: Panamanian Communication Ability: Effective Visual Impairment: Limited Hearing Ability: Normal Port Traffic Manager Required: No Beliefs That Will Affect Care: None marital status: / Current Living Situation: Family Current Living Situation Comment: lives with son current occupational status: retired How many Children do You have: 2 Other Information That Helps Us Care for You: No Feels Safe at Home: Yes Safety Concerns: Feels Safe At This Time Childhood Exposure to Second-Hand Smoke: No Diet Comment: Regular diet caffeine: Yes (coffee) Dental Care, Regularly: Yes Physical Activity Frequency: 1-2 Times per Week Seatbelt Use: always Sunscreen Use: Yes Assistive Devices: Glasses and Walker Review of Systems Constitutional: no fever and no chills Eyes: no diplopia Ear, Nose, Mouth, Throat: no ear pain Respiratory: no cough and no dyspnea Cardiovascular: no chest pain Gastrointestinal: + abdominal pain; no nausea and no vomiting Genitourinary: no dysuria Musculoskeletal: no back pain Integumentary: no rash Neurologic: no localized weakness Physical Exam Constitutional: well developed and well nourished; no acute distress Eyes: no conjunctival abnormality ENMT: Ears: no hearing impairment Neck: trachea midline Respiratory: normal respiratory effort, lungs clear to auscultation Cardiovascular: Rate/Rhythm: regular rate and regular rhythm Gastrointestinal (Abdomen): Patient's abdomen is soft and nondistended with positive bowel sounds. There is no rebound tenderness or guarding. Patient did have some slight pain with deep palpation in the right upper quadrant. There were no other areas in the abdomen that were painful to palpation. Carias sign was negative at the time of my exam. Musculoskeletal: No calf tenderness Skin: no rashes, warm and dry Neurologic: moves all extremities Psychiatric: A+Ox3, euthymic affect Results & Data ([facility]) Vital Signs (Past 12 Hours) Vital Signs Temp Pulse Resp BP Pulse Ox 09/05/20 18:20 55 L 18 98 09/05/20 18:15 58 L 13 140/61 99 09/05/20 18:10 61 22 98 09/05/20 18:05 60 19 154/77 H 99 09/05/20 18:02 21 09/05/20 17:00 49 L 18 97 09/05/20 16:50 49 L 20 98 09/05/20 16:40 50 L 18 97 09/05/20 16:30 60 22 93 09/05/20 16:20 56 L 14 98 09/05/20 16:16 57 L 15 184/76 H 98 09/05/20 16:10 53 L 16 98 09/05/20 16:02 50 L 1 L 98 09/05/20 16:00 51 L 2 L 207/83 H 97 09/05/20 14:19 36.5 C 57 L 18 210/84 H 97 PG Care Time/CCT Total # of Minutes Spent Total Time Spent with Patient: Total time spent is greater than 50% in coordination of care (as documented) at patient's floor/unit and/or counseling patient: Coding Level of Care Code 92992 Inpt Consult Level 5 Diagnoses Cholelithiasis K80.20
[2020-09-05] MEDS: SODIUM CHLORIDE 0.9% 1000ML 1,000 ML IV SCH (22:35)
[2020-09-05] MEDS: HEPARIN SOD 5,000 UNIT/0.5 ML VIAL SQ SCH (22:40)
[2020-09-05] MEDS ORDERED: PHENYTOIN SODIUM ER 100 MG CAP PO ONE (23:15)
[2020-09-06] MEDS: PIPERACILLIN/TAZOBACTAM 3.375 GM in DEXTROSE 5% 100 ML IV SCH ×3 (03:11→21:15)
[2020-09-06] MEDS: LEVOTHYROXINE SODIUM 50 MCG TABLET PO SCH (05:51)
[2020-09-06] MEDS: HEPARIN SOD 5,000 UNIT/0.5 ML VIAL SQ SCH ×3 (05:52→21:15)
--- NOTE | 2020-09-06 06:36 | Electrocardiogram Report ---
Test Reason : Blood Pressure : / mmHG Vent. Rate : 050 BPM Atrial Rate : 050 BPM P-R Int : 204 ms QRS Dur : 088 ms QT Int : 466 ms P-R-T Axes : 048 053 060 degrees QTc Int : 424 ms Sinus bradycardia Otherwise normal ECG When compared with ECG of 04-APR-2020 18:13, No significant change was found Confirmed by Raheem Stewart ([id number]) on 09/06/2020 6:36:16 AM Referred By: REFERRED SELF Confirmed By:Raheem Stewart
--- NOTE | 2020-09-06 07:42 | Hospitalist Progress Note ---
Date of Service September 06, 2020 Assessment & Plan (1) Cholelithiasis: 84 yo F Hx epilepsy, HTN, hypothyroidism, peripheral neuropathy admitted for RUQ abdominal pain and nausea. Cholelithiasis, Elevated LFTs: - Presenting symptom of nausea and RUQ pain with radiation to the back. - RUQ US showed multiple gallbladder stones largest measuring 2.4cm, with borderline thickened gallbladder wall. - MRCP did not show biliary ductal dilatation or calculi. Mild gallbladder wall thickening noted, unable to exlclude acute cholecystitis. - LFTs elevated, downtrended some this AM however still with substantial elevation. - Zosyn started on admission; continue for possible cholecystitis. - General Surgery and GI consulted; GI to perform EUS and ERCP today. General Surgery to perform cholecystectomy tomorrow. - NPO at midnight for procedure tomorrow. - Antiemetics and analgesics PRN. Hyponatremia: - ER labwork with Na 129->133 overnight with IV fluids. - Baseline Na ~135. Will continue to monitor while admitted, appears to be resolving. - TSH with AM labs. HTN: - Continue atenolol and telmisartan when able to tolerate PO. - BP elevated in 150s systolic, ok to hold medication at this time. Seizure Disorder: - History of, continue Dilantin. Hypothyroidism: - Continue levothyroxine when not NPO. - TSH with AM labs.` Peripheral Neuropathy: - History of, continue gabapentin when not NPO. - Out of bed as able. Code Status: FULL CODE DVT ppx: SCDs FEN: NPO for now, Regular diet when able to tolerate PO Dispo: Med Surg with Telemetry (2) Elevated LFTs: (3) Hypertension: (4) Seizure disorder: (5) Hypothyroidism: Admission and Anticipated Discharge Date Admission Date: September 05, 2020 Supervising Physician Co-Signing Physician Notes I personally examined the patient and verified all ryan points of history and exam, discussed case, and agree with decision making with Dr Ku. Feeling a good deal of back pain post ERCP. She wonders if this is from the stent. However whenever she points to where the pain is is really more in her lower thoracic to mid lumbar region not periscapular. Also she does not really have any right upper abdominal pain more pain that radiates around from her back to her abdomen in the region of her iliac crest. Vitals noted, in general she is awake but fairly groggy and appears fairly uncomfortable due to the back pain. HEENT normocephalic atraumatic mucous membranes moist. Breathing unlabored no accessory muscle use good effort. Skin shows no rashes no pallor or icterus. Osteopathic/musculoskeletal yields right lower thoracic and upper to mid lumbar paraspinals very high tone, tender, decreased range of motiondirect myofascial done with minimal improvement. Patient tolerated well. Cholecystitis/choledocholithiasisZosyn, post ERCP with stone removal, anticipate cholecystectomy. Continue Zosyn and supportive care Back painappears too low to really be radiating from her gallbladder, and she has somatic dysfunction on exam consistent with a biomechanical source. Moist heat, Voltaren gel, as needed pain medicines, attempted OMT as above. DVT prophylaxisSCDs for now, would like to upgrade to pharmacologic once she is completed with procedures. Otherwise as above Subjective Patient without acute events overnight. Endorses some nausea and RUQ mild pain this AM, but well controlled with PRN medications. No fevers or chills, chest pain, SOB. Is feeling hungry, last meal was yesterday lunchtime. Review of Systems Review of Systems: All systems reviewed & are unremarkable except as noted in HPI & below Constitutional: no fever, no chills and no malaise Respiratory: no cough and no dyspnea Cardiovascular: no chest pain, no palpitations and no edema Gastrointestinal: + abdominal pain and + nausea; no constipation and no bonny rrhea/loose stools Genitourinary: no dysuria and no hematuria Physical Exam Constitutional: WD/WN, vitals as above Respiratory: normal respiratory effort, lungs clear to auscultation Cardiovascular: RRR, no murmur, no edema Gastrointestinal (Abdomen): Inspection/Auscultation: normal bowel sounds; abdomen not distended Percussion/Palpation: + abdomen tender (Mild, RUQ) and abdomen soft; no guarding Skin: no rashes, warm and dry Psychiatric: A+Ox3, euthymic affect Results & Data Results & Data ([facility]) Vital Signs (Past 12 Hours) Vital Signs Temp Pulse Pulse Resp BP Pulse Ox 09/06/20 07:31 36.5 C 51 L 18 144/71 H 96 09/06/20 07:19 48 L 09/06/20 04:28 36.8 C 54 L 18 149/68 H 91 09/06/20 02:02 65 09/05/20 22:00 53 L 09/05/20 21:25 36.5 C 58 L 20 165/73 H 96 Resident Activity Tracking Resident Involvement: Resident Care Provided Care Provided: Adult [facility] Medicine (1) Cholelithiasis Cholelithiasis location: gallbladder and bile duct
[2020-09-06] MEDS: ATENOLOL 50 MG TABLET PO SCH (08:38)
[2020-09-06] MEDS: CHOLECALCIFEROL 1,000 UNITS 25 MCG TAB PO SCH (08:39)
[2020-09-06] MEDS: TELMISARTAN 40 MG TAB PO SCH (08:39)
[2020-09-06] MEDS: CALCIUM 600MG + VIT D 400 IU TAB PO SCH (08:39)
[2020-09-06] MEDS ORDERED: PHENYTOIN SODIUM ER 100 MG CAP PO SCH (09:00)
[2020-09-06 09:15] LABS: Basophils # (auto) 0.07 K/uL (0-0.2); Basophils % (auto) 1.6 %; Eosinophils # (auto) 0.27 K/uL (0-0.5); Eosinophils % (auto) 6.1 %; Hematocrit (blood only) 36.8 % (37-47); Hemoglobin 12.7 g/dL (12.0-16.0); Immature Granulocytes # (auto) 0.01 K/uL (0.00-0.02); Immature Granulocytes % (auto) 0.2 %; Lymphocytes # (auto) 1.63 K/uL (1.2-3.4); Lymphocytes % (auto) 36.9 %; Mean Corpuscular Hemoglobin 34.3 pg (25-34); Mean Corpuscular Hgb Conc 34.5 g/dL (32-36); Mean Corpuscular Volume 99.5 fL (80-100); Mean Platelet Volume 9.7 fL (7.4-10.4); Monocytes % (auto) 13.6 %; Neutrophils # (auto) 1.84 K/uL (1.4-6.5); Neutrophils % (auto) 41.6 %; Platelet Count 184 K/uL (130-400); RDW Standard Deviation 47.4 fL (36.4-46.3); White Blood Count 4.42 K/uL (4.8-10.8)
[2020-09-06] MEDS: SODIUM CHLORIDE 0.9% 1000ML 1,000 ML IV SCH ×2 (09:46→18:07)
[2020-09-06] MEDS: SODIUM CHLORIDE 0.9% 500 ML IV SCH (09:48)
[2020-09-06 09:52] LABS: Albumin Level 3.5 gm/dl (3.4-5.0); BUN Creatinine Ratio 9.7 (10-20); Calcium 8.4 mg/dl (8.5-10.1); Creatinine Clr Calc Pharmacy 49.2 ml/min; Est GFR (African American) 80.3 ml/min; Est GFR (Non-African American) 69.3 ml/min; Potassium 3.9 mmol/L (3.5-5.1)
[2020-09-06 09:55] LABS: Albumin Globulin Ratio 1.1 (0.9-2); Bilirubin,Total 2.1 mg/dl (0.2-1); Globulin 3.2 gm/dl (2.5-4.0); Total Protein 6.7 gm/dl (6.4-8.2)
--- NOTE | 2020-09-06 10:00 | Magnetic Resonance Report ---
MRCP CLINICAL HISTORY: Right upper quadrant abdominal pain. Nausea and vomiting. TECHNIQUE: Utilizing a 1.5 Maribell magnet and dedicated coil, multiplanar, multiecho imaging of the [facility] er abdomen was performed utilizing heavily T2 weighted pulsing sequences without IV contrast. COMPARISON STUDY: CT of the abdomen and pelvis April 04, 2020. Right upper quadrant ultrasound and abdominal series September 05, 2020. FINDINGS: No intra or extrahepatic biliary ductal dilatation is present. Common bile duct measures 4 mm in caliber. There is pancreas divisum. The caliber of the pancreatic duct is normal. There are mul tiple gallstones within the gallbladder. Note is made of mild gallbladder wall thickening. No hepatic lesions are identified on this unenhanced examination. Unenhanced images of the spleen, adrenal glan ds and kidneys are unremarkable. There are left-sided renal parapelvic cysts. There is no peripancrea tic fluid. No abdominal lymphadenopathy or ascites is present. IMPRESSION: 1. No biliary ductal dilatation. No common bile duct calculi identified. 2. Cholelithiasis. Mild gallbladder wall thickening. Acute cholecystitis cannot be excluded. If indic ated, a hepatobiliary scan could be obtained. 3. Pancreas divisum. ACT 112: Negative or not required by law. Electronically signed by: Adrian Maciel M.D. 09/06/2020 9:58 AM
[2020-09-06] MEDS ORDERED: INDOMETHACIN 50 MG SUPP PR ONE ×2 (10:59→14:02)
--- NOTE | 2020-09-06 11:06 | Gastrointestinal Consultation ---
Date of Consultation September 06, 2020 Assessment & Plan (1) RUQ pain: (2) Cholelithiasis: (3) Elevated LFTs: Pt is a 84 y/o female w RUQ abd pain radiating to back x 2 days, noted to have elevated LFTs. Abd imaging studies w u/s and MRCP showed cholelithiasis though cholecystitis cannot be excluded, normal caliber CBD and pancreatic divisum. - Antibx coverage for possible cholecystitis - Keep NPO - IVF support - She is scheduled for lap marisela in OR tomorrow. We will plan on ERCP today for possible retained stone not seen in MRCP (since LFTs still elevated) - Symptomatic management Supervising Physician Co-Signing Physician Notes I performed a history and physical examination of the patient today, including specifically on physical exam - soft abdomen. I have discussed the patient's management with the advanced practitioner. Please refer to the nurse practitioner's note for the documented findings and plan of care. Elevated LFTs with gallstones, MRCP with small duct hence may not see the stone. EUS/ERCP today. History of Present Illness Reason for Consultation: Elevated LFTs, cholelithiasis Requesting Physician: Dr. Valentin Thomas Attending Physician: Dr. Bibi Padilla History of Present Illness Pt is a 84 y/o female w PMHx of HTN, neuropathy, seizure disorder (last episode 10 yrs ago), hypothyroidism, who presented w c/o RUQ abd pain radiating to R flank/back area started yesterday. Denies associated jaundice, fever, chills, CP, SOB, n/v, bowel habit changes, dark urine. On eval, noted to have elevated LFTs: Tbili 2, AST/ALT 300s, Alk phos 150s. Lipase normal. Abdominal imaging studies w U/ S and MRCP showed signs of cholelithiasis, acute cholecystitis cannot be excluded. CBD normal caliber. There is a pancreatic divisum Allergies Allergy/AdvReac Type Severity Reaction Status Date / Time hydrochlorothiazide AdvReac Severe seizure Verified 09/05/20 16:06 activity amlodipine AdvReac Intermediate Dizziness Verified 09/05/20 16:06 enalapril AdvReac Intermediate cough Verified 09/05/20 16:06 Home Medications Medication Instructions Recorded Confirmed Type cholecalciferol (vitamin D3) 50 2,000 units PO DAILY tab 02/11/19 09/05/20 History mcg (2,000 unit) tablet acetaminophen 500 mg tablet 500 mg PO Q6H PRN 07/14/19 09/05/20 History calcium carb 300 mg-D3 800 1 tab PO DAILY 07/14/19 09/05/20 History unit-mag ox 25 mg-rn endoscopy 0.5 mg-luis-Zn tablet ibuprofen 200 mg tablet 200 mg PO Q6H PRN #7 tab 08/09/19 09/05/20 Rx phenytoin sodium extended 100 mg 100 mg PO TID #90 cap 01/17/20 09/05/20 Rx capsule gabapentin 100 mg capsule 100 mg PO DAILY PRN cap 02/04/20 09/05/20 History phenobarbital 16.2 mg tablet 16.2 mg PO .COMPLEX #450 tab 04/26/20 09/05/20 Rx levothyroxine 50 mcg tablet 50 mcg PO DAILY #90 tab 05/11/20 09/05/20 Rx lorazepam 1 mg tablet 0.5 - 1 mg PO DAILY PRN 30 Days 06/13/20 09/05/20 Rx #30 tab atenolol 50 mg tablet 50 mg PO DAILY #90 tab 07/19/20 09/05/20 Rx telmisartan 80 mg tablet 80 mg PO DAILY #90 tab 08/02/20 09/05/20 Rx Patient History Medical History Abdominal pain, epigastric Chest pain Hypertension Hypothyroidism Lumbar spinal stenosis 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 Mother No problems noted. Brother Myocardial infarction Other No pertinent family history Denies family history of Ovarian cancer Prostate cancer Breast cancer Lung cancer Colorectal cancer Social History Smoking Status: Never smoker Second Hand Exposure: No; Do You Dip or Chew Tobacco: No; Hx Alcohol Use: No Hx Substance Use: No Preferred Language: Spanish Communication Ability: Effective Visual Impairment: Limited Hearing Ability: Normal Manager Marketing Communication Required: No Beliefs That Will Affect Care: None marital status: / Current Living Situation: Family Current Living Situation Comment: lives with son current occupational status: retired How many Children do You have: 2 Other Information That Helps Us Care for You: No Feels Safe at Home: Yes Safety Concerns: Feels Safe At This Time Childhood Exposure to Second-Hand Smoke: No Diet Comment: Regular diet caffeine: Yes (coffee) Dental Care, Regularly: Yes Physical Activity Frequency: 1-2 Times per Week Seatbelt Use: always Sunscreen Use: Yes Assistive Devices: Glasses and Walker Review of Systems Review of Systems: All systems reviewed & are unremarkable except as noted in HPI & below Physical Exam Constitutional: WD/WN, vitals as above well groomed, cooperative and comfortable Eyes: PERRL, conjunctivae normal, anicteric sclerae ENMT: external ear and nose normal, oropharynx normal Respiratory: normal respiratory effort, lungs clear to auscultation Cardiovascular: RRR, no murmur, no edema Gastrointestinal (Abdomen): Inspection/Auscultation: + hypoactive bowel sounds Percussion/Palpation: + abdomen tender (RUQ) and abdomen soft Skin: no rashes, warm and dry no jaundice Psychiatric: A+Ox3, euthymic affect Lymphatic: no lymphedema Results & Data ([facility]) Vital Signs (Past 12 Hours) Vital Signs Temp Pulse Pulse Resp BP Pulse Ox 09/06/20 07:31 36.5 C 51 L 18 144/71 H 96 09/06/20 07:19 48 L 09/06/20 04:28 36.8 C 54 L 18 149/68 H 91 09/06/20 02:02 65
--- NOTE | 2020-09-06 12:03 | Surgery Progress Note ---
Date of Service September 06, 2020 Assessment & Plan (1) Elevated LFTs: (2) Cholelithiasis: -Appreciate GI input, plan for ERCP today -Keep NPO after MN and will plan on laparoscopic cholecystectomy, possible open, possible IOC tomorrow -Consent obtained, risks discussed including bleeding, infection, bile leak, ductal injury Admission and Anticipated Discharge Date Admission Date: September 05, 2020 Subjective Pt seen and examined. Still with some RUQ pain, but improved. No N/V. Afebrile. Review of Systems Review of Systems: All systems reviewed & are unremarkable except as noted in Subjective Physical Exam Constitutional: WD/WN, vitals as above Eyes: PERRL, conjunctivae normal, anicteric sclerae Respiratory: normal respiratory effort Cardiovascular: Rate/Rhythm: regular rate and regular rhythm Gastrointestinal (Abdomen): Inspection/Auscultation: abdomen normal to inspection; abdomen not distended Percussion/Palpation: + abdomen tender (minimal TTP RUQ, Negative Carias's) and abdomen soft; no guarding and abdomen not rigid Skin: no rashes, warm and dry Psychiatric: A+Ox3, euthymic affect Results & Data ([facility]) Vital Signs (Past 12 Hours) Vital Signs Temp Pulse Pulse Resp BP Pulse Ox 09/06/20 11:31 36.5 C 51 L 18 135/56 L 94 09/06/20 07:31 36.5 C 51 L 18 144/71 H 96 09/06/20 07:19 48 L 09/06/20 04:28 36.8 C 54 L 18 149/68 H 91 09/06/20 02:02 65 PG Care Time/CCT Total # of Minutes Spent Total Time Spent with Patient: Total time spent is greater than 50% in coordination of care (as documented) at patient's floor/unit and/or counseling patient: Coding Level of Care Code 54698 Subseq Hosp Care Lvl 2 Diagnoses Elevated LFTs R79.89 Cholelithiasis K80.20 Cholelithiasis location: gallbladder and bile duct (1) Cholelithiasis Cholelithiasis location: gallbladder and bile duct
--- NOTE | 2020-09-06 13:28 | Anesthesiology Consultation ---
Date of Service September 06, 2020 Assessment & Plan Chart Review Chart Review: Acceptable Risk for Surgery and Patient NOT seen in Pre Admission Testing Consults Requested none Proposed Anesthesia Risk / Benefits Reviewed With: PT / POA / Parent / Guardian, Accepts Plan and Informed Consent Obtained History Surgery Operation Date: 09/06/20 15:30 Proposed Procedures p Endoscopic Retrograde Cholangiopancreato - Bibi Padilla MD Operation Date: 09/07/20 11:30 Proposed Procedures p Laparoscopic Cholecystectomy with possible Cholangiogram - Kian Narvaez DO Height/Weight Height: 5 ft 1 in Weight: 76 kg Allergies Allergy/AdvReac Type Severity Reaction Status Date / Time hydrochlorothiazide AdvReac Severe seizure Verified 09/05/20 16:06 activity amlodipine AdvReac Intermediate Dizziness Verified 09/05/20 16:06 enalapril AdvReac Intermediate cough Verified 09/05/20 16:06 Medications Home Medications Medication Instructions Recorded Confirmed Last Taken cholecalciferol (vitamin D3) 50 2,000 units PO DAILY tab 02/11/19 09/05/20 09/05/20 mcg (2,000 unit) tablet acetaminophen 500 mg tablet 500 mg PO Q6H PRN 07/14/19 09/05/20 Unknown calcium carb 300 mg-D3 800 1 tab PO DAILY 07/14/19 09/05/20 09/05/20 unit-mag ox 25 mg-endoscope technician 0.5 mg-luis-Zn tablet ibuprofen 200 mg tablet 200 mg PO Q6H PRN #7 tab 08/09/19 09/05/20 Unknown phenytoin sodium extended 100 mg 100 mg PO TID #90 cap 01/17/20 09/05/20 09/05/20 14:00 capsule gabapentin 100 mg capsule 100 mg PO DAILY PRN cap 02/04/20 09/05/20 Unknown phenobarbital 16.2 mg tablet 16.2 mg PO .COMPLEX #450 tab 04/26/20 09/05/20 09/05/20 14:00 levothyroxine 50 mcg tablet 50 mcg PO DAILY #90 tab 05/11/20 09/05/20 09/05/20 lorazepam 1 mg tablet 0.5 - 1 mg PO DAILY PRN 30 Days 06/13/20 09/05/20 Unknown #30 tab atenolol 50 mg tablet 50 mg PO DAILY #90 tab 0409/05/20 09/05/20 telmisartan 80 mg tablet 80 mg PO DAILY #90 tab 08/02/20 09/05/20 09/05/20 Active Medications Generic Name Dose Route Start Last Admin Trade Name Christiano PRKiarra Reason Stop Dose Admin Atenolol 50 mg 09/06/20 09:00 09/06/20 08:38 Atenolol 50 Mg Tablet PO 10/06/20 08:59 50 mg DAILY EDWARD Administration Heparin Sodium (Porcine) 5,000 units 09/05/20 22:00 09/06/20 05:52 Heparin Sod 5,000 Unit/0.5 Ml Vial SQ 10/05/20 21:59 5,000 units Q8 EDWARD Administration Sodium Chloride 1,000 mls @ 100 mls/hr 09/05/20 21:45 09/06/20 09:46 Nss 1000ml IV 10/05/20 21:44 100 mls/hr .Q10H EDWARD Administration Piperacillin Sod/Tazobactam 115 mls @ 28.75 mls/hr 09/06/20 04:00 09/06/20 07:15 Sod 3.375 gm/ Dextrose IV 09/16/20 03:59 Infused Q8H EDWARD Infusion Protocol Levothyroxine Sodium 50 mcg 09/06/20 06:30 09/06/20 05:51 Levothyroxine Sodium 50 Mcg Tablet PO 10/06/20 06:29 50 mcg DAILYBB EDWARD Administration Multivitamins/Minerals 1 tab 09/06/20 09:00 09/06/20 08:39 Calcium 600mg + Vit D 400 Iu Tab PO 10/06/20 08:59 1 tab DAILY EDWARD Administration Protocol Phenobarbital 32.4 mg 09/05/20 23:00 09/06/20 08:49 Phenobarbital 32.4 Mg Tab PO 10/05/20 22:59 32.4 mg BID EDWARD Administration Telmisartan 80 mg 09/06/20 09:00 09/06/20 08:39 Telmisartan 40 Mg Tab PO 10/06/20 08:59 80 mg DAILY EDWARD Administration Vitamin D 2,000 units 09/06/20 09:00 09/06/20 08:39 Cholecalciferol 1,000 Units 25 Mcg Tab PO 10/06/20 08:59 2,000 units DAILY EDWARD Administration NPO Date Last Intake of Fluids: 09/05/20 Time Last Intake of Fluids: 22:00 Date Last Intake of Solids: 09/05/20 Time Last Intake of Solids: 12:00 Past Medical History Medical History Abdominal pain, epigastric Chest pain Hypertension Hypothyroidism Lumbar spinal stenosis 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 Mother No problems noted. Brother Myocardial infarction Other No pertinent family history Denies family history of Ovarian cancer Prostate cancer Breast cancer Lung cancer Colorectal cancer Past Surgical History Surgical History History of colonoscopy S/P appendectomy S/P cataract surgery S/P tonsillectomy and adenoidectomy Social History Smoking Status: Never smoker Do You Dip or Chew Tobacco: No Hx Alcohol Use: No Hx Substance Use: No substance use type: does not use Physical Exam Vital Signs Last Vital Signs Temp 36.9 C 09/06/20 13:13 Pulse 55 L 09/06/20 13:13 Resp 18 09/06/20 13:13 BP 152/71 H 09/06/20 13:13 Pulse Ox 94 09/06/20 13:13 Testing Laboratory Results 09/06/20 08:57 09/06/20 08:57 PT 10.3 Seconds (9.0-12.0) 09/05/20 15:42 INR 1.0 (0.9-1.1) 09/05/20 15:42 APTT 27.3 Seconds (21.0-31.0) 09/05/20 15:42 Urine Color Yellow 09/05/20 15:34 Urine Appearance Clear (Clear) 09/05/20 15:34 Urine pH 8.0 (4.5-7.5) H 09/05/20 15:34 Ur Specific [place] 1.010 (1.000-1.030) 09/05/20 15:34 Urine Protein Negative (Negative) 09/05/20 15:34 Urine Glucose (UA) Negative (Negative) 09/05/20 15:34 Urine Ketones Negative (Negative) 09/05/20 15:34 Urine Nitrite Negative (Negative) 09/05/20 15:34 Ur Leukocyte Esterase Negative (Negative) 09/05/20 15:34
[2020-09-06] MEDS ORDERED: PROMETHAZINE HCL 12.5 MG in SODIUM CHLORIDE 0.9% 50 ML IV PRN (13:30)
[2020-09-06] MEDS ORDERED: METOCLOPRAMIDE HCL INJ 5 MG/ML 2 ML VIAL IV PRN (13:30)
[2020-09-06] MEDS ORDERED: HYDROmorphone INJ 2 MG/ML SYR/VIAL IV PRN (13:30)
[2020-09-06] MEDS ORDERED: ONDANSETRON INJ 2 MG/ML 2 ML VIAL IV PRN (13:30)
[2020-09-06] MEDS ORDERED: ePHEDrine sulfate 50 MG/ML AMP IV PRN (13:30)
[2020-09-06] MEDS ORDERED: ATROPINE SULFATE 0.1 MG/ML 10ML SYR IV PRN (13:30)
[2020-09-06] MEDS ORDERED: PROPOFOL IV EMULSION 10 MG/ML 20 ML VIAL IV ONE (13:41)
[2020-09-06] MEDS ORDERED: ONDANSETRON INJ 2 MG/ML 2 ML VIAL ONE (13:41)
[2020-09-06] MEDS ORDERED: LIDOCAINE 2% 2 ML VIAL/AMP(20MG/ML) INFIL ONE (13:41)
[2020-09-06] MEDS ORDERED: DEXAMETHASONE SOD INJ 4 MG/ML VIAL ONE (13:41)
[2020-09-06] MEDS ORDERED: fentaNYL citrate 100 MCG/2 ML VIAL ONE ×2 (13:42→15:28)
[2020-09-06] MEDS ORDERED: PHENYTOIN SODIUM ER 100 MG CAP PO ONE (14:00)
[2020-09-06] MEDS ORDERED: NEOSTIGMINE METHYLSULFATE 1 MG/ML 10ML VIAL ONE (14:34)
[2020-09-06] MEDS ORDERED: GLYCOPYRROLATE 0.2 MG/ML VIAL ONE (14:34)
[2020-09-06] MEDS ORDERED: ROCURONIUM BROMIDE 10 MG/ML 5 ML VIAL IV ONE (14:34)
--- NOTE | 2020-09-06 15:26 | Operative Report ---
Post Operative Report Pre & Post Diagnosis Operation Date: 09/06/20 15:30 Pre-Op Diagnosis: right upper quadrant pain, Cholelithiasis, Elevated LFT Post-Op Diagnosis: right upper quadrant pain, Cholelithiasis, Elevated LFT Operation Date: 09/07/20 11:30 <No data on this case meets the specified criteria> I identified the patient and participated in the time-out.: Yes Procedure Operation Date: 09/06/20 15:30 Actual Procedures p Esophagogastroduodenoscopy, Endoscopic ultrasound, Endoscopic Retrograde Cholangiopancreatography(Not Applicable) - Bibi Padilla MD Operation Date: 09/07/20 11:30 <No data on this case meets the specified criteria> Surgeon Bibi Padilla MD Inspector Watch Parts None Estimated Blood Loss 0 Findings See Below (Choledocholithiasis) Specimens None Description of Procedure EUS/ERCP I attest to the content of the Intraoperative Record and any orders documented therein. Any exceptions are noted below.
--- NOTE | 2020-09-06 15:35 | GI REPORT ---
Patient Name: Flores Hendrickson Procedure Date: 09/06/2020 2:10 PM Date of : 1935 Admit Type: Inpatient Age: 84 Gender: Female Attending MD: Bibi Padilla MD Procedure: Upper GI endoscopy Providers: Bibi Padilla MD Referring MD: Valentin Thomas Indications: Abdominal pain Medicines: General Anesthesia Complications: No immediate complications. Estimated Blood Loss: Estimated blood loss: none. Procedure: Pre-Anesthesia Assessment: - Prior to the procedure, a History and Physical was performed, and patient medications, allergies and sensitivities were reviewed. The patient's tolerance of previous anesthesia was reviewed. - The risks and benefits of the procedure and the sedation options and risks were discussed with the patient. All questions were answered and informed consent was obtained. - Patient identification and proposed procedure were verified prior to the procedure by the physician and the nurse. The procedure was verified in the procedure room. - Pre-procedure physical examination revealed no contraindications to sedation. After obtaining informed consent, the endoscope was passed under direct vision. Throughout the procedure, the patient's blood pressure, pulse, and oxygen saturations were monitored continuously. The Endoscope was introduced through the mouth, and advanced to the second part of duodenum. The upper GI endoscopy was accomplished without difficulty. The patient tolerated the procedure well. Findings: The examined esophagus was normal. The entire examined stomach was normal. Localized mild inflammation characterized by erosions and erythema was found in the duodenal bulb. Impression: - Normal esophagus. - Normal stomach. - Duodenitis. - No specimens collected. Recommendation: - Perform an upper endoscopic ultrasound (UEUS) today. Bibi Padilla MD 09/06/2020 3:34:24 PM This report has been signed electronically. Note Initiated On: 09/06/2020 2:10 PM Number of Addenda: 0 I attest to the content of the Intraoperative Record and orders documented therein, exceptions below {[id number]}
--- NOTE | 2020-09-06 15:39 | GI REPORT ---
Patient Name: Flores Hendrickson Procedure Date: 09/06/2020 2:23 PM Date of : 1935 Admit Type: Inpatient Age: 84 Gender: Female Attending MD: Bibi Padilla MD Procedure: Upper EUS Providers: Bibi Padilla MD Referring MD: Valentin Thomas Indications: Elevated liver enzymes, Suspected choledocholithiasis Medicines: General Anesthesia Complications: No immediate complications. Estimated Blood Loss: Estimated blood loss: none. Procedure: Pre-Anesthesia Assessment: - Prior to the procedure, a History and Physical was performed, and patient medications, allergies and sensitivities were reviewed. The patient's tolerance of previous anesthesia was reviewed. - The risks and benefits of the procedure and the sedation options and risks were discussed with the patient. All questions were answered and informed consent was obtained. - Patient identification and proposed procedure were verified prior to the procedure by the physician and the nurse. The procedure was verified in the procedure room. - Pre-procedure physical examination revealed no contraindications to sedation. After obtaining informed consent, the endoscope was passed under direct vision. Throughout the procedure, the patient's blood pressure, pulse, and oxygen saturations were monitored continuously. The scope was introduced through the mouth, and advanced to the second part of duodenum. The upper EUS was accomplished without difficulty. The patient tolerated the procedure well. Findings: ENDOSONOGRAPHIC FINDING: : There was no sign of significant endosonographic abnormality in the ampulla. No masses were identified. One stone and sludge was visualized endosonographically in the common bile duct. It was hyperechoic and characterized by shadowing. The duct measured 7 mm in maximum diameter. Many stones were visualized endosonographically in the gallbladder. They were hyperechoic and characterized by shadowing. There was no sign of significant endosonographic abnormality in the entire pancreas. The pancreatic duct measured up to 2 mm in diameter. Pancreas divisum was visualized. There was no sign of significant endosonographic abnormality in the visualized portion of the left adrenal gland. There was no sign of significant endosonographic abnormality involving the celiac trunk. Impression: - There was no sign of significant pathology in the ampulla. - One stone was visualized endosonographically in the common bile duct. - Many stones were visualized endosonographically in the gallbladder. - There was no sign of significant pathology in the entire pancreas. - Pancreas divisum was visualized. - Endosonographic images of the left adrenal gland were unremarkable. - The celiac trunk was endosonographically normal. Recommendation: - Perform an ERCP today. Bibi Padilla MD 09/06/2020 3:38:26 PM This report has been signed electronically. Note Initiated On: 09/06/2020 2:23 PM Number of Addenda: 0 I attest to the content of the Intraoperative Record and orders documented therein, exceptions below {[id number]}
--- NOTE | 2020-09-06 15:45 | GI REPORT ---
Patient Name: Flores Hendrickson Procedure Date: 09/06/2020 2:36 PM Date of : 1935 Admit Type: Inpatient Age: 84 Gender: Female Attending MD: Bibi Padilla MD Procedure: ERCP Providers: Bibi Padilla MD Referring MD: Kian Dominguez Do Indications: For therapy of bile duct stone(s) Medicines: General Anesthesia Complications: No immediate complications. Estimated Blood Loss: Estimated blood loss: none. Procedure: Pre-Anesthesia Assessment: - Prior to the procedure, a History and Physical was performed, and patient medications, allergies and sensitivities were reviewed. The patient's tolerance of previous anesthesia was reviewed. - The risks and benefits of the procedure and the sedation options and risks were discussed with the patient. All questions were answered and informed consent was obtained. - Patient identification and proposed procedure were verified prior to the procedure by the physician and the nurse. The procedure was verified in the procedure room. - Pre-procedure physical examination revealed no contraindications to sedation. After obtaining informed consent, the scope was passed under direct vision. Throughout the procedure, the patient's blood pressure, pulse, and oxygen saturations were monitored continuously. The Scope was introduced through the mouth, and advanced to the duodenum and used to inject contrast into the bile duct. The ERCP was accomplished without difficulty. The patient tolerated the procedure well. Findings: The printed forms proofreader film was normal. The esophagus was successfully intubated under direct vision. The scope was advanced to a normal major papilla in the descending duodenum without detailed examination of the pharynx, larynx and associated structures, and upper GI tract. The upper GI tract was grossly normal. The biliary tree could not be cannulated with a sphincterotome hence a biliary pre-cut sphincterotomy was made with a monofilament needle knife using a freehand technique using ERBE electrocautery. There was no post-sphincterotomy bleeding. A 0.025 inch x 270 cm angled Visiglide wire was passed into the biliary tree. The Fusion OMNI sphincterotome was passed over the guidewire and the bile duct was then deeply cannulated. Contrast was injected. I personally interpreted the bile duct images. Ductal flow of contrast was adequate. Image quality was adequate. Contrast extended to the main bile duct. Opacification of the main bile duct was successful. The maximum diameter of the ducts was 9 mm. The biliary sphincterotomy was extended with a monofilament traction (standard) sphincterotome using ERBE electrocautery. There was no post-sphincterotomy bleeding. The biliary tree was swept with a 12 mm balloon starting at the bifurcation. Sludge was swept from the duct. One stone was removed. No stones remained. One 7 Fr by 4 cm plastic biliary stent with a single external pigtail and a single internal pigtail was placed into the common bile duct. Bile flowed through the stent. The stent was in good position. Indomethacin 100 mg was given via suppository to decrease the risk of post-ERCP pancreatitis (PEP). Impression: - Choledocholithiasis was found. Complete removal was accomplished by biliary sphincterotomy and balloon extraction. - One plastic biliary stent was placed into the common bile duct. Recommendation: - [facility]. - Repeat ERCP in 6 weeks to remove stent. Bibi Padilla MD 09/06/2020 3:44:22 PM This report has been signed electronically. Note Initiated On: 09/06/2020 2:36 PM Number of Addenda: 0 I attest to the content of the Intraoperative Record and orders documented therein, exceptions below {[id number]}
[2020-09-06] MEDS ORDERED: GLUCAGON FOR INJ 1 MG VIAL ONE (15:50)
--- NOTE | 2020-09-06 15:54 | Fluoroscopy Report ---
[place] ERCP biliary ductal CLINICAL HISTORY: EXPLORE DUCTS COMPARISON STUDY: MRCP 09/05/2020. FLUOROSCOPY TIME: 48 seconds. 68 fluoroscopic spot images of the right upper quadrant were submitted. FINDINGS: The ampulla was cannulated and contrast was injected into the common bile duct. A small balta unt of contrast was also injected into the main pancreatic duct initially. A balloon sweep was perfor med. Contrast is seen within the gallbladder which contains a few small stones. This is followed by p lacement of a common bile duct stent which appears in good position.. IMPRESSION: Fluoroscopy provided for ERCP as described above. ACT 112: Negative or not required by law. Electronically signed by: Sanju Riley M.D. 09/06/2020 3:53 PM
[2020-09-06] MEDS: fentaNYL citrate 100 MCG/2 ML VIAL IV PRN ×2 (16:29→16:44)
[2020-09-06] MEDS ORDERED: hydrALAZINE HCL 20 MG/ML VIAL ONE (16:37)
[2020-09-06] MEDS ORDERED: hydrALAZINE HCL 20 MG/ML VIAL IV STA (16:40)
[2020-09-06] MEDS: KETOROLAC TROMETHAMINE 15 MG/ML VIAL IV PRN (18:10)
[2020-09-06] MEDS: PHENYTOIN SODIUM ER 100 MG CAP PO SCH ×2 (18:13→23:50)
[2020-09-06] MEDS ORDERED: oxyCODONE HCL IR 5 MG TAB (IMMEDIATE RELEASE) PO PRN (19:24)
--- NOTE | 2020-09-06 19:25 | Anesthesiology Progress Note ---
Date of Service September 06, 2020 Anesthesia Post Procedure Vital Signs Vital Signs: Temp Pulse Pulse Pulse Pulse Resp BP 09/06/20 18:14 36.6 C 64 20 152/73 H 09/06/20 17:52 36.7 C 52 L 18 145/71 H 09/06/20 17:30 36.7 C 51 L 20 145/75 H 09/06/20 16:55 53 L 16 163/57 H 09/06/20 16:45 36.3 C L 47 L 18 157/57 H 09/06/20 16:40 45 L 18 182/68 H 09/06/20 16:35 44 L 14 199/68 H 09/06/20 16:25 41 L 15 183/72 H 09/06/20 16:15 36.2 C L 42 L 16 193/72 H 09/06/20 16:05 42 L 16 166/68 H 09/06/20 15:55 45 L 20 162/64 H 09/06/20 15:45 45 L 20 159/62 H 09/06/20 15:38 36.6 C 52 L 20 152/60 H 09/06/20 13:13 36.9 C 55 L 18 09/06/20 11:31 36.5 C 51 L 18 09/06/20 07:31 36.5 C 51 L 18 09/06/20 07:19 48 L 09/06/20 04:28 36.8 C 54 L 18 09/06/20 02:02 65 09/05/20 22:00 53 L 09/05/20 21:25 36.5 C 58 L 20 BP Pulse Ox 09/06/20 18:14 96 09/06/20 17:52 96 09/06/20 17:30 95 09/06/20 16:55 95 09/06/20 16:45 96 09/06/20 16:40 94 09/06/20 16:35 94 09/06/20 16:25 95 09/06/20 16:15 95 09/06/20 16:05 95 09/06/20 15:55 97 09/06/20 15:45 97 09/06/20 15:38 97 09/06/20 13:13 152/71 H 94 09/06/20 11:31 135/56 L 94 09/06/20 07:31 144/71 H 96 09/06/20 07:19 09/06/20 04:28 149/68 H 91 09/06/20 02:02 09/05/20 22:00 09/05/20 21:25 165/73 H 96 Pain Intensity Right Flank: Pain Intensity: 4 Transfer of Care Handoff Completed per policy Notes Mental Status: alert / awake / arousable and participated in evaluation Patient Amnestic to Procedure: Yes Nausea / Vomiting: adequately controlled Pain: adequately controlled Airway Patency, RR, SpO2: stable & adequate BP & HR: stable & adequate Hydration State: stable & adequate Anesthetic Complications: no major complications apparent and Pt Satisfied with anesthetic care
--- NOTE | 2020-09-06 19:29 | Billing Data ---
Date of Service September 06, 2020 Coding Level of Care Code 80532 Subseq Hosp Care Lvl 3
[2020-09-06] MEDS: DICLOFENAC SOD 1% GEL 100 GM TUBE EXT SCH (21:16)
--- NOTE | 2020-09-06 21:40 | Anesthesiology Consultation ---
Date of Service September 06, 2020 Assessment & Plan (1) Encounter for pre-operative examination: Chart Review Chart Review: Acceptable Risk for Surgery and Patient NOT seen in Pre Admission Testing Consults Requested none History Surgery Operation Date: 09/06/20 15:30 Proposed Procedures p Endoscopic Retrograde Cholangiopancreato - Bibi Padilla MD Operation Date: 09/07/20 11:30 Proposed Procedures p Laparoscopic Cholecystectomy with possible Cholangiogram - Kian Narvaez, Height/Weight Height: 5 ft 1 in Weight: 76 kg Allergies Allergy/AdvReac Type Severity Reaction Status Date / Time hydrochlorothiazide AdvReac Severe seizure Verified 09/05/20 16:06 activity amlodipine AdvReac Intermediate Dizziness Verified 09/05/20 16:06 enalapril AdvReac Intermediate cough Verified 09/05/20 16:06 Medications Home Medications Medication Instructions Recorded Confirmed Last Taken cholecalciferol (vitamin D3) 50 2,000 units PO DAILY tab 02/11/19 09/05/20 09/05/20 mcg (2,000 unit) tablet acetaminophen 500 mg tablet 500 mg PO Q6H PRN 07/14/19 09/05/20 Unknown calcium carb 300 mg-D3 800 1 tab PO DAILY 07/14/19 09/05/20 09/05/20 unit-mag ox 25 mg-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 0.5 mg-luis-Zn tablet ibuprofen 200 mg tablet 200 mg PO Q6H PRN #7 tab 08/09/19 09/05/20 Unknown phenytoin sodium extended 100 mg 100 mg PO TID #90 cap 01/17/20 09/05/20 09/05/20 14:00 capsule gabapentin 100 mg capsule 100 mg PO DAILY PRN cap 02/04/20 09/05/20 Unknown phenobarbital 16.2 mg tablet 16.2 mg PO .COMPLEX #450 tab 04/26/20 09/05/20 09/05/20 14:00 levothyroxine 50 mcg tablet 50 mcg PO DAILY #90 tab 05/11/20 09/05/20 09/05/20 lorazepam 1 mg tablet 0.5 - 1 mg PO DAILY PRN 30 Days 06/13/20 09/05/20 Unknown #30 tab atenolol 50 mg tablet 50 mg PO DAILY #90 tab 07/19/20 09/05/20 09/05/20 telmisartan 80 mg tablet 80 mg PO DAILY #90 tab 08/02/20 09/05/20 09/05/20 Active Medications Generic Name Dose Route Start Last Admin Trade Name Christiano PRN Reason Stop Dose Admin Atenolol 50 mg 09/06/20 09:00 09/06/20 08:38 Atenolol 50 Mg Tablet PO 10/06/20 08:59 50 mg DAILY EDWARD Administration Diclofenac Sodium 4 gm 09/06/20 21:00 09/06/20 21:16 Diclofenac Sod 1% Gel 100 Gm Tube EXT 10/06/20 20:59 4 gm QID EDWARD Administration Heparin Sodium (Porcine) 5,000 units 09/05/20 22:00 09/06/20 21:15 Heparin Sod 5,000 Unit/0.5 Ml Vial SQ 10/05/20 21:59 5,000 units Q8 EDWARD Administration Sodium Chloride 1,000 mls @ 100 mls/hr 09/05/20 21:45 09/06/20 18:07 Nss 1000ml IV 10/05/20 21:44 100 mls/hr .Q10H EDWARD Administration Piperacillin Sod/Tazobactam 115 mls @ 28.75 mls/hr 09/06/20 04:00 09/06/20 21:15 Sod 3.375 gm/ Dextrose IV 09/16/20 03:59 28.8 mls/hr Q8H EDWARD Administration Protocol Ketorolac Tromethamine 15 mg 09/05/20 21:25 09/06/20 18:10 Ketorolac Tromethamine 15 Mg/Ml Vial IV 09/10/20 21:24 15 mg Q6H PRN Administration Pain Levothyroxine Sodium 50 mcg 09/06/20 06:30 09/06/20 05:51 Levothyroxine Sodium 50 Mcg Tablet PO 10/06/20 06:29 50 mcg DAILYBB EDWARD Administration Multivitamins/Minerals 1 tab 09/06/20 09:00 09/06/20 08:39 Calcium 600mg + Vit D 400 Iu Tab PO 10/06/20 08:59 1 tab DAILY EDWARD Administration Protocol Ondansetron HCl 4 mg 09/05/20 21:25 09/06/20 18:10 Ondansetron Inj 2 Mg/Ml 2 Ml Vial IV 10/05/20 21:24 4 mg Q6H PRN Administration Nausea Oxycodone HCl 5 mg 09/06/20 19:24 09/06/20 21:13 Oxycodone Hcl Ir 5 Mg Tab (Immediate Release) PO 09/20/20 19:23 5 mg Q6 PRN Administration Pain Phenobarbital 16.2 mg 09/06/20 14:00 09/06/20 17:40 Phenobarbital 32.4 Mg Tab PO 10/06/20 13:59 Not Given DAILY@1400 EDWARD Phenobarbital 32.4 mg 09/05/20 23:00 09/06/20 21:15 Phenobarbital 32.4 Mg Tab PO 10/05/20 22:59 32.4 mg BID EDWARD Administration Phenytoin Sodium 100 mg 09/06/20 18:00 09/06/20 18:13 Phenytoin Sodium Er 100 Mg Cap PO 10/06/20 17:59 100 mg Q8 EDWARD Administration Telmisartan 80 mg 09/06/20 09:00 09/06/20 08:39 Telmisartan 40 Mg Tab PO 10/06/20 08:59 80 mg DAILY EDWARD Administration Vitamin D 2,000 units 09/06/20 09:00 09/06/20 08:39 Cholecalciferol 1,000 Units 25 Mcg Tab PO 10/06/20 08:59 2,000 units DAILY EDWARD Administration NPO Date Last Intake of Fluids: 09/05/20 Time Last Intake of Fluids: 22:00 Date Last Intake of Solids: 09/05/20 Time Last Intake of Solids: 12:00 Past Medical History Medical History Abdominal pain, epigastric Chest pain Hypertension Hypothyroidism Lumbar spinal stenosis 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 Mother No problems noted. Brother Myocardial infarction Other No pertinent family history Denies family history of Ovarian cancer Prostate cancer Breast cancer Lung cancer Colorectal cancer Past Surgical History Surgical History History of colonoscopy S/P appendectomy S/P cataract surgery S/P tonsillectomy and adenoidectomy Social History Smoking Status: Never smoker Do You Dip or Chew Tobacco: No Hx Alcohol Use: No Hx Substance Use: No substance use type: does not use Physical Exam Vital Signs Last Vital Signs Temp 36.7 C 09/06/20 20:15 Pulse 68 09/06/20 20:15 Resp 20 09/06/20 20:15 BP 157/67 H 09/06/20 20:15 Pulse Ox 95 09/06/20 20:15 Testing Laboratory Results 09/06/20 08:57 09/06/20 08:57 PT 10.3 Seconds (9.0-12.0) 09/05/20 15:42 INR 1.0 (0.9-1.1) 09/05/20 15:42 APTT 27.3 Seconds (21.0-31.0) 09/05/20 15:42 Urine Color Yellow 09/05/20 15:34 Urine Appearance Clear (Clear) 09/05/20 15:34 Urine pH 8.0 (4.5-7.5) H 09/05/20 15:34 Ur Specific [place] 1.010 (1.000-1.030) 09/05/20 15:34 Urine Protein Negative (Negative) 09/05/20 15:34 Urine Glucose (UA) Negative (Negative) 09/05/20 15:34 Urine Ketones Negative (Negative) 09/05/20 15:34 Urine Nitrite Negative (Negative) 09/05/20 15:34 Ur Leukocyte Esterase Negative (Negative) 09/05/20 15:34 Electrocardiogram Date: 09/05/20 Findings: + SB @ (50) When compared with ECG of 04-APR-2020 18:13, No significant change was found
[2020-09-06] MEDS ORDERED: MoRPHine SULFATE 2 MG/ML CARP IV STA (23:45)
[2020-09-07] MEDS: PIPERACILLIN/TAZOBACTAM 3.375 GM in DEXTROSE 5% 100 ML IV SCH ×3 (04:08→20:22)
[2020-09-07] MEDS: SODIUM CHLORIDE 0.9% 1000ML 1,000 ML IV SCH ×2 (04:08→14:49)
[2020-09-07] MEDS: LEVOTHYROXINE SODIUM 50 MCG TABLET PO SCH (05:32)
[2020-09-07] MEDS: HEPARIN SOD 5,000 UNIT/0.5 ML VIAL SQ SCH ×2 (05:32→15:09)
[2020-09-07] MEDS: PHENYTOIN SODIUM ER 100 MG CAP PO SCH ×2 (05:32→20:24)
[2020-09-07] MEDS: KETOROLAC TROMETHAMINE 15 MG/ML VIAL IV PRN (06:29)
[2020-09-07 07:20] LABS: Hematocrit (blood only) 34.9 % (37-47); Hemoglobin 11.8 g/dL (12.0-16.0); Mean Corpuscular Hemoglobin 33.7 pg (25-34); Mean Corpuscular Hgb Conc 33.8 g/dL (32-36); Mean Corpuscular Volume 99.7 fL (80-100); Platelet Count 177 K/uL (130-400); RDW Coefficient of Variation 13.4 % (11.5-14.5); RDW Standard Deviation 48.6 fL (36.4-46.3); White Blood Count 8.21 K/uL (4.8-10.8)
[2020-09-07 07:57] LABS: Albumin Level 3.3 gm/dl (3.4-5.0); BUN Creatinine Ratio 11.9 (10-20); Calcium 8.3 mg/dl (8.5-10.1); Creatinine Clr Calc Pharmacy 48.6 ml/min; Est GFR (African American) 74.5 ml/min; Est GFR (Non-African American) 64.3 ml/min; Potassium 3.6 mmol/L (3.5-5.1)
[2020-09-07 08:10] LABS: Albumin Globulin Ratio 1.1 (0.9-2); Bilirubin,Total 0.9 mg/dl (0.2-1); Globulin 3.1 gm/dl (2.5-4.0); Thyroid Stimulating Hormone 1.79 uIu/ml (0.300-4.500); Total Protein 6.4 gm/dl (6.4-8.2)
[2020-09-07] MEDS ORDERED: PHENobarbital sodium 130 MG/ML VIAL IV SCH (09:00)
[2020-09-07] MEDS: PHENYTOIN 100 MG in SYRINGE 0 ML IV SCH ×2 (09:05→14:50)
--- NOTE | 2020-09-07 09:13 | Hospitalist Progress Note ---
Date of Service September 07, 2020 Assessment & Plan (1) Cholelithiasis: 84 yo F Hx epilepsy, HTN, hypothyroidism, peripheral neuropathy admitted for RUQ abdominal pain and nausea. Cholelithiasis, Elevated LFTs: - Presenting symptom of nausea and RUQ pain with radiation to the back. Symptoms improved this AM with IVF and NPO. - RUQ US showed multiple gallbladder stones largest measuring 2.4cm, with borderline thickened gallbladder wall. - MRCP did not show biliary ductal dilatation or calculi. Mild gallbladder wall thickening noted, unable to exclude acute cholecystitis. - LFTs elevated but continuing to downtrend since admission. - Zosyn started on admission; continue for possible cholecystitis. - General Surgery and GI consulted - ERCP performed which showed choledocholithiasis; complete removal performed by biliary sphincterotomy and balloon extraction. - General Surgery to perform cholecystectomy today. Advance diet as tolerated following procedure. - Antiemetics and analgesics PRN. Hyponatremia: - ER labwork with Na 129->stable at 132. - Baseline Na ~135. Will continue to monitor while admitted, appears to be mild chronic. - TSH normal. HTN: - Continue atenolol and telmisartan when able to tolerate PO. - BP normotensive currently. Seizure Disorder: - History of, continue Dilantin and phenobarbital IV while NPO, and PO after post-op. Hypothyroidism: - Continue levothyroxine when not NPO. - TSH normal. Peripheral Neuropathy / Back pain: - History of, continue gabapentin when not NPO. - Out of bed as able. - Voltaren gel and heat application as needed for mild to moderate pain, oxycodone for severe pain. Code Status: FULL CODE DVT ppx: SCDs; start Heparin after procedure today FEN: NPO until post-op, then Regular diet Dispo: Med Surg Admission and Anticipated Discharge Date Admission Date: September 05, 2020 Supervising Physician Co-Signing Physician Notes I personally examined the patient and verified all ryan points of history and exam, discussed case, and agree with decision making with Dr Ku. see late addendum note. otherwise as above/below Cholecystitis/choledocholithiasisZosyn, post ERCP with stone removal, anticipate cholecystectomy. Continue Zosyn and supportive care Back painappears too low to really be radiating from her gallbladder, and she has somatic dysfunction on exam consistent with a biomechanical source. Moist heat, Voltaren gel, as needed pain medicines, attempted OMT as above. DVT prophylaxisSCDs for now, would like to upgrade to pharmacologic once she is completed with procedures. Otherwise as above Subjective Patient without acute events overnight. Due to consistent NPO status patient is concerned about her seizure medications. No complaints of chest pain or SOB. Does not endorse nausea or abdominal pain this AM. For cholecystectomy this afternoon. Review of Systems Review of Systems: All systems reviewed & are unremarkable except as noted in HPI & below Constitutional: no fever, no chills and no malaise Respiratory: no cough and no dyspnea Cardiovascular: no chest pain, no palpitations and no edema Gastrointestinal: no abdominal pain, no nausea, no constipation and no diarrhea/loose stools Genitourinary: no dysuria and no hematuria Physical Exam Constitutional: WD/WN, vitals as above Respiratory: normal respiratory effort, lungs clear to auscultation Cardiovascular: RRR, no murmur, no edema Gastrointestinal (Abdomen): Inspection/Auscultation: normal bowel sounds; abdomen not distended Percussion/Palpation: abdomen soft; abdomen nontender and no guarding Skin: no rashes, warm and dry Psychiatric: A+Ox3, euthymic affect Results & Data Results & Data ([facility]) Vital Signs (Past 12 Hours) Vital Signs Temp Pulse Pulse Resp BP BP Pulse Ox 09/07/20 07:41 36.8 C 58 L 16 115/63 94 09/07/20 03:45 37.4 C 64 20 124/65 94 09/07/20 00:00 71 09/06/20 23:00 37.6 C H 72 20 153/70 H 96 Resident Activity Tracking Resident Involvement: Resident Care Provided Care Provided: Adult Hospital Medicine (1) Cholelithiasis Cholelithiasis location: gallbladder and bile duct
[2020-09-07] MEDS: CHOLECALCIFEROL 1,000 UNITS 25 MCG TAB PO SCH (09:19)
[2020-09-07] MEDS: CALCIUM 600MG + VIT D 400 IU TAB PO SCH (09:19)
[2020-09-07] MEDS: ATENOLOL 50 MG TABLET PO SCH (09:19)
[2020-09-07] MEDS: TELMISARTAN 40 MG TAB PO SCH (09:20)
[2020-09-07] MEDS: PHENOBARBITAL SODIUM IV SCH ×2 (09:47→14:50)
[2020-09-07] MEDS: DICLOFENAC SOD 1% GEL 100 GM TUBE EXT SCH ×4 (09:48→20:25)
[2020-09-07] MEDS: SODIUM CHLORIDE 0.9% 10ML FLUSH IV SCH ×2 (09:48→14:51)
[2020-09-07] MEDS ORDERED: oxyCODONE HCL IR 5 MG TAB (IMMEDIATE RELEASE) PO PRN ×2 (10:24→14:39)
[2020-09-07] MEDS ORDERED: ROCURONIUM BROMIDE 10 MG/ML 5 ML VIAL IV ONE (10:54)
[2020-09-07] MEDS ORDERED: MIDAZOLAM HCL 1 MG/ML 2ML VIAL ONE (10:54)
[2020-09-07] MEDS ORDERED: fentaNYL citrate 100 MCG/2 ML VIAL ONE (10:54)
[2020-09-07] MEDS ORDERED: LIDOCAINE 2% 2 ML VIAL/AMP(20MG/ML) INFIL ONE (10:54)
[2020-09-07] MEDS ORDERED: PROPOFOL IV EMULSION 10 MG/ML 20 ML VIAL IV ONE (10:54)
[2020-09-07] MEDS ORDERED: BUPIVACAINE 0.25% 30 ML VIAL ONE (11:33)
[2020-09-07] MEDS ORDERED: EPINEPHrine INJ 1 MG/ML AMP ONE (11:33)
[2020-09-07] MEDS ORDERED: ONDANSETRON INJ 2 MG/ML 2 ML VIAL IV PRN (11:48)
[2020-09-07] MEDS ORDERED: ATROPINE SULFATE 0.1 MG/ML 10ML SYR IV PRN (11:48)
[2020-09-07] MEDS ORDERED: HYDROmorphone INJ 2 MG/ML SYR/VIAL IV PRN (11:48)
[2020-09-07] MEDS ORDERED: fentaNYL citrate 100 MCG/2 ML VIAL IV PRN (11:48)
[2020-09-07] MEDS ORDERED: ePHEDrine sulfate 50 MG/ML AMP IV PRN (11:48)
--- NOTE | 2020-09-07 12:13 | History & Physical Bridge Note ---
Date of Service September 07, 2020 History & Physical Bridge Note I have examined the patient, reviewed the History & Physical and in the interval since the performance of the History & Physical I have noted the following changes of clinical significance: no changes noted
[2020-09-07] MEDS ORDERED: ONDANSETRON INJ 2 MG/ML 2 ML VIAL ONE (12:40)
[2020-09-07] MEDS ORDERED: DEXAMETHASONE SOD INJ 4 MG/ML VIAL ONE (12:40)
[2020-09-07] MEDS ORDERED: GLYCOPYRROLATE 0.2 MG/ML VIAL ONE (13:18)
[2020-09-07] MEDS ORDERED: NEOSTIGMINE METHYLSULFATE 1 MG/ML 10ML VIAL ONE (13:18)
--- NOTE | 2020-09-07 13:40 | Post Operative Brief Note ---
PG Immediate Post Op with CF Date of Surgery September 07, 2020 Pre & Post Diagnosis Operation Date: 09/07/20 11:30 Pre-Op Diagnosis: Acute Cholecystitis, Choledocholithiasis Post-Op Diagnosis: Acute Cholecystitis, Choledocholithiasis I identified the patient and participated in the time-out.: Yes Procedure Operation Date: 09/07/20 11:30 Actual Procedures p Laparoscopic Cholecystectomy(Not Applicable) - Kian Narvaez DO Surgeon Kian Narvaez DO Insurance Rater Tyshawn Kinney PA-C Estimated Blood Loss 10 Findings See Below Mildly inflamed gallbladder with omental adhesions Specimens Specimen Description: A: Gallbladder and Contents Anesthesia Type General Complications none Disposition Disposition: Recovery Room
--- NOTE | 2020-09-07 13:45 | Operative Report ---
PG Post Operative Report Pre & Post Diagnosis Operation Date: 09/07/20 11:30 Pre-Op Diagnosis: Acute Cholecystitis, Choledocholithiasis Post-Op Diagnosis: Acute Cholecystitis, Choledocholithiasis I identified the patient and participated in the time-out.: Yes Procedure Operation Date: 09/07/20 11:30 Actual Procedures p Laparoscopic Cholecystectomy(Not Applicable) - Kian Narvaez DO Surgeon Kian Narvaez DO Coal Pulverizer Operator Tyshawn Kinney PA-C Estimated Blood Loss 10 Findings See Below Mildly inflamed, edematous gallbladder with omental adhesions Fluids see anesthesia record Specimens Gallbladder to pathology Drains None Anesthesia Type General Complications none Disposition Disposition: Recovery Room Indications 84 yo female with history of choledocholithiasis, acute cholecystitis Description of Procedure The patient was brought to the operating room and placed in the supine position with both arms extended. At this time she underwent general endotracheal anesthesia without any problems. She was given appropriate pre-operative antibiotics. Her abdomen prepped and draped in the usual sterile fashion. A timeout was called, the procedure was verified as Laparoscopic cholecystectomy, possible open, possible intra-operative cholangiogram. Surgical, nursing and anesthesia teams agreed and the procedure was begun. After injection of 0.25% Marcaine with epinephrine, a supraumbilical vertical incision was made and carried down to the fascia using S-retractors. The abdominal wall was then elevated with towel clamps and abdomen entered using the Veress needle confirming position using the saline drop test. Pneumoperitoneum was establish ed. 5mm trocar was placed. Laparoscope was introduced. No injury from entry into the abdomen was visualized after inspection of the abdomen. Three further ports were placed under direct visualization. One 11mm in the subxiphoid region and two 5mm in the RUQ. At this time the abdomen was inspected and the gallbladder identified. The gallbladder fundus was grasped and retracted cephalad. The gallbladder infundibulum was then grasped and retracted laterally. The gallbladder was mildly inflamed and edematous consistent with acute cholecystitis. The duodenum was carefully dissected off the gallbladder using sharp and blunt dissection. The cystic duct and cystic artery were then identified and skeletonized. The critical view of safety was obtained. They were both then clipped twice proximally and once distally and then divided using scissors. The gallbladder was then taken off of the liver bed using electrocautery and placed in an endocatch bag and removed from the subxiphoid p ort. The liver bed was then inspected and no bile leak or bleeding was evident. The subxiphoid port was then closed using 0-Vicryl using the suture passer. The trocars were then removed under direct visualization and no bleeding was present. Abdomen was desufflated. The skin was then closed using 4-0 Monocryl in a subcuticular fashion. Surgical glue was applied. Needle and sponge counts were correct x 2. At this time the patient was awoken from anesthesia and extubated having remained stable throughout the entire case. The patient was then transported to PACU in stable condition. The physician's library clerical assistant was present and scrubbed for the entire case. He was essential in positioning, prepping and draping the patient, driving the laparoscope, retraction and exposure, closure of the incisions and placement of the dressings. I attest to the content of the Intraoperative Record and any orders documented therein. Any exceptions are noted below.
--- NOTE | 2020-09-07 14:07 | Anesthesiology Progress Note ---
Date of Service September 07, 2020 Anesthesia Post Procedure Vital Signs Vital Signs: Temp Pulse Pulse Pulse Resp BP BP 09/07/20 13:55 57 L 16 175/63 H 09/07/20 13:46 36.8 C 68 16 158/61 H 09/07/20 12:00 36.8 C 67 67 18 147/55 H 09/07/20 11:35 36.8 C 59 L 18 122/64 09/07/20 08:00 70 09/07/20 07:41 36.8 C 58 L 16 115/63 09/07/20 03:45 37.4 C 64 20 124/65 09/07/20 00:00 71 09/06/20 23:00 37.6 C H 72 20 153/70 H 09/06/20 20:15 36.7 C 68 20 157/67 H 09/06/20 19:15 36.6 C 66 20 149/55 H 09/06/20 18:14 36.6 C 64 20 152/73 H 09/06/20 17:52 36.7 C 52 L 18 145/71 H 09/06/20 17:30 36.7 C 51 L 20 145/75 H 09/06/20 16:55 53 L 16 163/57 H 09/06/20 16:45 36.3 C L 47 L 18 157/57 H 09/06/20 16:40 45 L 18 182/68 H 09/06/20 16:35 44 L 14 199/68 H 09/06/20 16:25 41 L 15 183/72 H 09/06/20 16:15 36.2 C L 42 L 16 193/72 H 09/06/20 16:05 42 L 16 166/68 H 09/06/20 15:55 45 L 20 162/64 H 09/06/20 15:45 45 L 20 159/62 H 09/06/20 15:38 36.6 C 52 L 20 152/60 H Pulse Ox 09/07/20 13:55 98 09/07/20 13:46 99 09/07/20 12:00 93 09/07/20 11:35 95 09/07/20 08:00 09/07/20 07:41 94 09/07/20 03:45 94 09/07/20 00:00 09/06/20 23:00 96 09/06/20 20:15 95 09/06/20 19:15 94 09/06/20 18:14 96 09/06/20 17:52 96 09/06/20 17:30 95 09/06/20 16:55 95 09/06/20 16:45 96 09/06/20 16:40 94 09/06/20 16:35 94 09/06/20 16:25 95 09/06/20 16:15 95 09/06/20 16:05 95 09/06/20 15:55 97 09/06/20 15:45 97 09/06/20 15:38 97 Pain Intensity Right Flank: Pain Intensity: 9 Transfer of Care Handoff Completed per policy Notes Mental Status: alert / awake / arousable and participated in evaluation Patient Amnestic to Procedure: Yes Nausea / Vomiting: adequately controlled Pain: adequately controlled Airway Patency, RR, SpO2: stable & adequate BP & HR: stable & adequate Hydration State: stable & adequate Anesthetic Complications: no major complications apparent and Pt Satisfied with anesthetic care
[2020-09-07] MEDS ORDERED: MoRPHine SULFATE 2 MG/ML CARP IV PRN (14:39)
[2020-09-07] MEDS ORDERED: SODIUM CHLORIDE 0.9% 1000ML 1,000 ML IV ONE (16:00)
[2020-09-07] MEDS ORDERED: METOPROLOL TARTRATE 1 MG/ML VIAL IV STA ×2 (16:11→16:55)
[2020-09-07] MEDS ORDERED: ASPIRIN CHEW 324 MG PO STA (16:17)
[2020-09-07] MEDS ORDERED: NITROGLYCERIN SL 0.4 MG/TAB TAB SL PRN (16:17)
--- NOTE | 2020-09-07 16:21 | Communication Note ---
Date of Service: September 07, 2020 4PM called to patient's bedside for complaints of heart racing. Patient's telemetry appeared to be AFib with RVR with possible ST depressions in lead II. Stat troponin and EKG ordered. Patient seen at bedside, no complaints of chest pain/pressure, SOB. Reports no history of AFib and states her HR is generally in the 50s. Follows with Dr. Hanks outpatient. Of note, patient recently returned to room after lap marisela for cholecystitis / choledocholithiasis. EKG showed AFib with RVR HR 130s, with ST depressions in inferior and anterolateral leads. No ST elevations. Initial troponin noted to be <0.015; serial troponins ordered. Curbsided Dr. Stewart and Dr. Akhtar. Patient given 324mg aspirin; nitro and morphine ordered PRN. Echo and Cardiology consult ordered for AM. 1L NSS bolus and Lopressor 5mg IV x2 given (at 4:11 and 4:55PM). Patient converted to sinus rhythm on telemetry at 5:10PM. Repeat EKG performed at 5:15PM showed sinus rhythm with HR 75, no ST depressions noted. Toprol XL 25mg qHS and Lovenox 40mg daily ordered. Overall suspect patient's AFib was a post-op ADR, and ST depressions were likely due to demand ischemia (average maximum heart rate of 135 and patient had been running HR 130s when ST depressions were present). Patient discussed and seen separately by Dr. Thomas. I personally examined the patient and verified all ryan points of history and exam, discussed case, and agree with decision making with Dr Ku Sudden onset A. fib RVRonly feels palpitations. Otherwise feels okayno chest pain/pressure/tightness. Has never had A. fib before. Vitals noted, in general she is anxious and fatigued but no acute distress. HEENT normocephalic atraumatic mucous membranes are moist. EKG shows A. fib at about [address]ressions most notable in 2 and aVF, as well as about V3 through V6. On monitor she shows A. fib and RVR between about 120 and 140. New onset atrial fibrillation with RVR and at least EKG evidence of some demand ischemiaher max predicted heart rate for age is about 135, so would be no surprise that at her rates she would show a degree of ischemia, but will ask cardiology for input in regards to if there is any further work-up needed for this part of it. Otherwise echo, TSH, metoprolol (as a late addendum she converted to sinus rhythm) and once echo is back calculate [id number] as it relates to long-term anticoagulation. Otherwise as above Resident Activity Tracking Resident Involvement: Resident Care Provided Care Provided: Adult [facility] Medicine
[2020-09-07] MEDS ORDERED: ENOXAPARIN INJ 40 MG/0.4 ML SYR SQ SCH (17:00)
--- NOTE | 2020-09-07 18:43 | Billing Data ---
Date of Service September 07, 2020 Coding Level of Care Code 99959 Subseq Hosp Care Lvl 3
[2020-09-07] MEDS: ENOXAPARIN INJ 40 MG/0.4 ML SYR SQ SCH (20:23)
[2020-09-07] MEDS ORDERED: METOPROLOL SUCC 25MG EXT REL TAB PO SCH (21:00)
[2020-09-08] MEDS: KETOROLAC TROMETHAMINE 15 MG/ML VIAL IV PRN ×3 (00:51→20:10)
[2020-09-08] MEDS: PIPERACILLIN/TAZOBACTAM 3.375 GM in DEXTROSE 5% 100 ML IV SCH ×3 (04:54→20:17)
[2020-09-08 04:56] LABS: Basophils # (auto) 0.04 K/uL (0-0.2); Basophils % (auto) 0.4 %; Eosinophils # (auto) 0.22 K/uL (0-0.5); Eosinophils % (auto) 2.2 %; Hematocrit (blood only) 32.7 % (37-47); Immature Granulocytes # (auto) 0.03 K/uL (0.00-0.02); Immature Granulocytes % (auto) 0.3 %; Lymphocytes # (auto) 2.79 K/uL (1.2-3.4); Lymphocytes % (auto) 27.8 %; Mean Corpuscular Hemoglobin 33.8 pg (25-34); Mean Corpuscular Hgb Conc 33.6 g/dL (32-36); Mean Corpuscular Volume 100.6 fL (80-100); Mean Platelet Volume 9.5 fL (7.4-10.4); Monocytes # (auto) 1.45 K/uL (0.11-0.59); Monocytes % (auto) 14.5 %; Neutrophils # (auto) 5.49 K/uL (1.4-6.5); Neutrophils % (auto) 54.8 %; Platelet Count 151 K/uL (130-400); RDW Coefficient of Variation 13.6 % (11.5-14.5); RDW Standard Deviation 50.3 fL (36.4-46.3); Red Blood Count 3.25 M/uL (4.2-5.4); White Blood Count 10.02 K/uL (4.8-10.8)
[2020-09-08 05:14] LABS: Albumin Level 3.2 gm/dl (3.4-5.0); BUN Creatinine Ratio 10.4 (10-20); Creatinine Clr Calc Pharmacy 49.8 ml/min; Est GFR (African American) 76.8 ml/min; Est GFR (Non-African American) 66.2 ml/min; Potassium 3.5 mmol/L (3.5-5.1)
[2020-09-08 05:20] LABS: Bilirubin,Total 0.8 mg/dl (0.2-1); Globulin 3.1 gm/dl (2.5-4.0); Total Protein 6.3 gm/dl (6.4-8.2); Troponin I 0.068 ng/ml (0-0.045)
[2020-09-08] MEDS: LEVOTHYROXINE SODIUM 50 MCG TABLET PO SCH (06:05)
[2020-09-08 06:11] LABS: Estimated Average Glucose 97 mg/dl
[2020-09-08] MEDS: PHENYTOIN SODIUM ER 100 MG CAP PO SCH ×3 (06:13→21:52)
--- NOTE | 2020-09-08 09:20 | Surgery Progress Note ---
Date of Service September 08, 2020 Assessment & Plan (1) Cholelithiasis: POD#1 Lap marisela (Dr. Narvaez)/ POD#2 ERCP (GI) WBC 10, Tb: 0.8, AST: 90 (142), ALT: 223 (303), AlkP: 93 Patient doing okay from surgical standpoint. Not much abdominal pain. Will advance diet as tolerates Appears patient is requiring workup from cardiac standpoint as went into afib overnight [facility] surgery covering over the weekend Admission and Anticipated Discharge Date Admission Date: September 05, 2020 Subjective Patient with complaints of back pain this AM. Denies much abdominal pain. Had some fleeting episodes of nausea, but otherwise has tolerating clears. No emesis. Physical Exam Physical Exam: awake/alert, sitting up in bed Constitutional: no acute distress Respiratory: normal respiratory effort Gastrointestinal (Abdomen): Inspection/Auscultation: + abdominal surgical incision (minimal bloody drainage at umbilical dressing, otherwise c/d/i) Percussion/Palpation: abdomen soft Results & Data ([facility]) Vital Signs (Past 12 Hours) Vital Signs Temp Pulse Pulse Resp BP BP Pulse Ox 09/08/20 08:00 36.6 C 85 18 163/72 H 97 09/08/20 04:00 36.6 C 52 L 20 161/69 H 99 09/08/20 00:00 59 L 09/07/20 23:00 36.5 C 61 20 147/70 H 95 PG Care Time/CCT Total # of Minutes Spent Total Time Spent with Patient: Total time spent is greater than 50% in coordination of care (as documented) at patient's floor/unit and/or counseling patient: Coding Level of Care Code None Diagnoses Cholelithiasis K80.20 Cholelithiasis location: gallbladder and bile duct (1) Cholelithiasis Cholelithiasis location: gallbladder and bile duct
--- NOTE | 2020-09-08 09:20 | Hospitalist Progress Note ---
Date of Service September 08, 2020 Assessment & Plan (1) Cholelithiasis: 84 yo F Hx epilepsy, HTN, hypothyroidism, peripheral neuropathy admitted for RUQ abdominal pain and nausea. Cholelithiasis, Elevated LFTs: Presenting symptom of nausea and RUQ pain with radiation to the back. Symptoms improved this AM with IVF and NPO. RUQ US showed multiple gallbladder stones largest measuring 2.4cm, with borderline thickened gallbladder wall. MRCP did not show biliary ductal dilatation or calculi. Mild gallbladder wall thickening noted, unable to exclude acute cholecystitis. - LFTs elevated but continuing to downtrend since admission. - Zosyn started on admission; continued for possible cholecystitis. - General Surgery and GI consulted -Patient tolerated cholecystectomy well -Routine postoperative care per surgery -Advance diet as tolerated - Antiemetics and analgesics PRN. Atrial fibrillation Postoperatively yesterday experienced an episode of atrial fibrillation with RVR with possible ST depressions in lead II. Patient was asymptomatic at the time. Follows with Dr. Villatoro as an outpatient, no history of atrial fibrillation. 1 L NSS bolus and Lopressor 5 mg IV x2 were given patient converted spontaneously to sinus rhythm on telemetry at 5:20 PM. Echo ordered, TSH ordered metoprolol as needed. -Cardiology consulted following recommendations -Spontaneous conversion after 4.5 hours of arrhythmia -Recommend against chronic anticoagulation, outpatient follow-up with cardiology after discharge. -If she has a repeat episode would initiate anticoagulation. -Continue outpatient beta-urvashi Hyponatremia: ER labwork with Na 129->stable at 132. Baseline Na ~135. Will continue to monitor while admitted, appears to be mild chronic. TSH normal. -Sodium 135 today HTN: - Continue atenolol and telmisartan when able to tolerate PO. - BP normotensive currently. Seizure Disorder: - History of, continue Dilantin and phenobarbital IV while NPO, and PO after post-op. Hypothyroidism: - Continue levothyroxine - TSH normal. Peripheral Neuropathy / Back pain: - History of, continue gabapentin when not NPO. - Out of bed as able. - Voltaren gel and heat application as needed for mild to moderate pain, oxycodone for severe pain. FENa: Regular diet Code Status: Full code DVT PPX: Lovenox PT/OT:Ordered Dispo: Marley Mcnulty MD PGY 2, FCM This chart was completed utilizing dragon dictation voice recognition software. Grammatical errors, random word insertions, pronoun errors, and in complete sentences are an occasional consequence of the system. Any questions or concerns about the content, text, or information contained within the body of this dictation should be addressed directly to the physician for clarification. Code Status: FULL CODE Admission and Anticipated Discharge Date Admission Date: September 05, 2020 Supervising Physician Co-Signing Physician Notes I personally examined the patient and verified all ryan points of history and exam, discussed case, and agree with decision making with Dr Mcnulty. Feeling better overall. Does have some right periscapular pain, but is eating well. No significant abdominal pain. No chest pain or palpitations. Feels fairly weak, and feels like she needs to get a bit stronger and recover more before she can start to think about going home. Vitals noted, in general she is awake and alert pleasant no distress. HEENT normocephalic atraumatic mucous membranes moist. Breathing unlabored no accessory muscle use good effort. She does have right periscapular hypertonicity of the musculature, no crepitus. Skin shows no rashes no pallor or icterus. Cholecystitis/choledocholithiasisZosyn, post ERCP with stone removal and postop day 1 post cholecystectomy. Appears to be improving, hopefully home soon. New onset atrial fibrillationnow returned to sinus. Rate is controlled, ongoing follow-up in regards to anticoagulation. Back pain2 days ago was more biomechanical and lower, today appears to be radiation from biliary procedures/pain/inflammation, given that her gallbladder situation is now remedied, I suspect this will improve fairly quickly. DVT prophylaxisLovenox Otherwise as above Subjective Patient lying in bed this morning in no acute distress. Reports no acute events overnight. Reports tolerating her diet, voiding, stooling. Acute concerns related to cardiac events yesterday, all questions answered. Physical Exam Physical Exam: General: Lying in bed no acute distress HEENT: Normocephalic atraumatic Neck: Visual inspection, trachea midline Cardiac: Regular rate and rhythm I did not appreciate significant murmurs rubs or gallops, normal S1, normal S2, negative pedal edema, negative calf tenderness Respiratory: Clear to auscultation bilaterally with symmetrical chest expansion I did not appreciate significant wheezes, rales, rhonchi GI: Soft, nontender, nondistended, no rebound, no guarding, normal bowel sounds Neuro: Alert and oriented x4 Psych: Calm and cooperative with the interview Results & Data Results & Data ([facility]) Vital Signs (Past 12 Hours) Vital Signs Temp Pulse Pulse Resp BP BP Pulse Ox 09/08/20 08:00 36.6 C 85 18 163/72 H 97 09/08/20 04:00 36.6 C 52 L 20 161/69 H 99 09/08/20 00:00 59 L 09/07/20 23:00 36.5 C 61 20 147/70 H 95 Laboratory Results 09/08/20 09/08/20 09/08/20 Range/Units 04:42 04:42 04:42 WBC 10.02 (4.8-10.8) K/uL RBC 3.25 L (4.2-5.4) M/uL Hgb 11.0 L (12.0-16.0) g/dL Hct 32.7 L (37-47) % MCV 100.6 H (80-100) fL MCH 33.8 (25-34) pg MCHC 33.6 (32-36) g/dL RDW Std Deviation 50.3 H (36.4-46.3) fL RDW Coeff of José Miguel 13.6 (11.5-14.5) % Plt Count 151 (130-400) K/uL MPV 9.5 (7.4-10.4) fL Immature Gran % (Auto) 0.3 % Neut % (Auto) 54.8 % Lymph % (Auto) 27.8 % [place] % (Auto) 14.5 % Eos % (Auto) 2.2 % Baso % (Auto) 0.4 % Neut # (Auto) 5.49 (1.4-6.5) K/uL Lymph # (Auto) 2.79 (1.2-3.4) K/uL [place] # (Auto) 1.45 H (0.11-0.59) K/uL Eos # (Auto) 0.22 (0-0.5) K/uL Baso # (Auto) 0.04 (0-0.2) K/uL Immature Gran # (Auto) 0.03 H (0.00-0.02) K/uL Sodium 135 L (136-145) mmol/L Potassium 3.5 (3.5-5.1) mmol/L Chloride 103 (98-107) mmol/L Carbon Dioxide 26 (21-32) mmol/L Anion Gap 6.0 (3-11) BUN 8 (7-18) mg/dl Creatinine 0.81 (0.6-1.2) mg/dl Est Cr Clr Drug Dosing 49.8 ml/min Est GFR ( Amer) 76.8 ml/min Est GFR (Non-Af Amer) 66.2 ml/min BUN/Creatinine Ratio 10.4 (10-20) Glucose 81 (70-99) mg/dl Estimat Average Glucose 97 mg/dl Hemoglobin A1c 5.0 (4.5-5.6) % Calcium 8.0 L (8.5-10.1) mg/dl Total Bilirubin 0.8 (0.2-1) mg/dl AST 90 H (15-37) U/L ALT 223 H (12-78) U/L Alkaline Phosphatase 93 (45-117) U/L Troponin I 0.068 H* (0-0.045) ng/ml Total Protein 6.3 L (6.4-8.2) gm/dl Albumin 3.2 L (3.4-5.0) gm/dl Globulin 3.1 (2.5-4.0) gm/dl Albumin/Globulin Ratio 1.0 (0.9-2) Triglycerides 81 (0-150) mg/dl Cholesterol 197 (0-200) mg/dl LDL Cholesterol, Calc 176 mg/dl VLDL Cholesterol, Calc 16 mg/dl HDL Cholesterol 5 mg/dl Cholesterol/HDL Ratio 39 09/07/20 09/07/20 Range/Units 22:33 16:21 WBC (4.8-10.8) K/uL RBC (4.2-5.4) M/uL Hgb (12.0-16.0) g/dL Hct (37-47) % MCV (80-100) fL MCH (25-34) pg MCHC (32-36) g/dL RDW Std Deviation (36.4-46.3) fL RDW Coeff of José Miguel (11.5-14.5) % Plt Count (130-400) K/uL MPV (7.4-10.4) fL Immature Gran % (Auto) % Neut % (Auto) % Lymph % (Auto) % [place] % (Auto) % Eos % (Auto) % Baso % (Auto) % Neut # (Auto) (1.4-6.5) K/uL Lymph # (Auto) (1.2-3.4) K/uL [place] # (Auto) (0.11-0.59) K/uL Eos # (Auto) (0-0.5) K/uL Baso # (Auto) (0-0.2) K/uL Immature Gran # (Auto) (0.00-0.02) K/uL Sodium (136-145) mmol/L Potassium (3.5-5.1) mmol/L Chloride (98-107) mmol/L Carbon Dioxide (21-32) mmol/L Anion Gap (3-11) BUN (7-18) mg/dl Creatinine (0.6-1.2) mg/dl Est Cr Clr Drug Dosing ml/min Est GFR ( Amer) ml/min Est GFR (Non-Af Amer) ml/min BUN/Creatinine Ratio (10-20) Glucose (70-99) mg/dl Estimat Average Glucose mg/dl Hemoglobin A1c (4.5-5.6) % Calcium (8.5-10.1) mg/dl Total Bilirubin (0.2-1) mg/dl AST (15-37) U/L ALT (12-78) U/L Alkaline Phosphatase (45-117) U/L Troponin I 0.065 H* < 0.015 (0-0.045) ng/ml Total Protein (6.4-8.2) gm/dl Albumin (3.4-5.0) gm/dl Globulin (2.5-4.0) gm/dl Albumin/Globulin Ratio (0.9-2) Triglycerides (0-150) mg/dl Cholesterol (0-200) mg/dl LDL Cholesterol, Calc mg/dl VLDL Cholesterol, Calc mg/dl HDL Cholesterol mg/dl Cholesterol/HDL Ratio Medications Administered Current Inpatient Medications Acetaminophen (Acetaminophen 500 Mg Tab) 500 mg PO Q6H PRN PRN Reason: Pain Stop: 10/05/20 22:32 Diclofenac Sodium (Diclofenac Sod 1% Gel 100 Gm Tube) 4 gm EXT QID EDWARD Stop: 10/06/20 20:59 Last Admin: 09/08/20 10:09 Dose: Not Given Documented by: Enoxaparin Sodium (Enoxaparin Inj 40 Mg/0.4 Ml Syr) 40 mg SQ Q24H [facility] Stop: 10/07/20 20:59 Last Admin: 09/07/20 20:23 Dose: 40 mg Documented by: Gabapentin (Gabapentin 100 Mg Cap) 100 mg PO DAILY PRN PRN Reason: Pain Stop: 10/05/20 21:24 Piperacillin Sod/Tazobactam (Sod 3.375 gm/ Dextrose) 115 mls @ 28.75 mls/hr IV Q8H [facility]; Protocol Stop: 09/16/20 03:59 Last Infusion: 09/08/20 10:34 Dose: Infused Documented by: Ketorolac Tromethamine (Ketorolac Tromethamine 15 Mg/Ml Vial) 15 mg IV Q6H PRN PRN Reason: Pain Stop: 09/10/20 21:24 Last Admin: 09/08/20 06:32 Dose: 15 mg Documented by: Levothyroxine Sodium (Levothyroxine Sodium 50 Mcg Tablet) 50 mcg PO DAILYBB [facility] Stop: 10/06/20 06:29 Last Admin: 09/08/20 06:05 Dose: 50 mcg Documented by: Metoprolol Succinate (Metoprolol Succ 25mg Ext Rel Tab) 25 mg PO BID [facility] Stop: 10/08/20 08:59 Last Admin: 09/08/20 10:10 Dose: Not Given Documented by: Miscellaneous Information (Piperacill/Tazobac Consult Active) 1 ea N/A UD PRN PRN Reason: Consult Stop: 10/05/20 21:24 Morphine Sulfate (Morphine Sulfate 2 Mg/Ml Carp) 2 mg IV Q1H PRN PRN Reason: Pain Stop: 09/21/20 14:38 Multivitamins/Minerals (Calcium 600mg + Vit D 400 Iu Tab) 1 tab PO DAILY [facility]; Protocol Stop: 10/06/20 08:59 Last Admin: 09/08/20 10:08 Dose: 1 tab Documented by: Nitroglycerin (Nitroglycerin Sl 0.4 Mg/Tab Tab) 0.4 mg SL Q5M PRN PRN Reason: Chest Pain Stop: 10/07/20 16:16 Ondansetron HCl (Ondansetron Inj 2 Mg/Ml 2 Ml Vial) 4 mg IV Q6H PRN PRN Reason: Nausea Stop: 10/05/20 21:24 Last Admin: 09/06/20 18:10 Dose: 4 mg Documented by: Oxycodone HCl (Oxycodone Hcl Ir 5 Mg Tab (Immediate Release)) 5 mg PO Q4H PRN PRN Reason: Pain Stop: 09/21/20 14:38 Phenobarbital (Phenobarbital 32.4 Mg Tab) 32.4 mg PO BID [facility] Stop: 10/07/20 20:59 Last Admin: 09/08/20 10:07 Dose: Not Given Documented by: Phenobarbital (Phenobarbital 32.4 Mg Tab) 16.2 mg PO DAILY@1400 [facility] Stop: 10/08/20 13:59 Phenytoin Sodium (Phenytoin Sodium Er 100 Mg Cap) 100 mg PO Q8 [facility]WARD Stop: 10/06/20 17:59 Last Admin: 09/08/20 06:13 Dose: 100 mg Documented by: Telmisartan (Telmisartan 40 Mg Tab) 80 mg PO DAILY [facility]WARD Stop: 10/06/20 08:59 Last Admin: 09/08/20 10:11 Dose: 80 mg Documented by: Vitamin D (Cholecalciferol 1,000 Units 25 Mcg Tab) 2,000 units PO DAILY [facility] Stop: 10/06/20 08:59 Last Admin: 09/08/20 10:09 Dose: 2,000 units Documented by: Resident Activity Tracking Resident Involvement: Resident Care Provided Care Provided: Adult Hospital Medicine (1) Cholelithiasis Cholelithiasis location: gallbladder and bile duct
--- NOTE | 2020-09-08 09:25 | Cardiology Consultation ---
Date of Consultation September 08, 2020 Assessment & Plan (1) Paroxysmal atrial fibrillation: Patient went into atrial fibrillation with RVR yesterday following cholecystectomy. She spontaneously converted after about 4.5 hours of the arrhythmia. She states that she was symptomatic with palpitations at the onset of atrial fibrillation, and this is the first time that she has had these symptoms. Given the fact the arrhythmia occurred postoperatively, would not recommend chronic anticoagulation therapy at this time. Recommend follow-up with Cardiology after discharge to reevaluate. If she has further documented episodes of the arrhythmia in the future after recovering from her acute illness, would then initiate chronic anticoagulation as she does have an elevated CHADSVASc score. Can continue her PO beta urvashi therapy which she is on as an outpatient. Echo performed today. Official report is pending. (2) Elevated troponin: Appears to be demand ischemia in the setting of her acute illness as well as atrial fibrillation with RVR. No angina. Her presentation is not consistent with an ACS. History of Present Illness Reason for Consultation: Atrial fibrillation, elevated troponin Requesting Physician: Dr. Dangelo History of Present Illness Patient is an 84-year-old female with a past medical history significant for hypertension, epilepsy, hypothyroidism, and peripheral neuropathy who was admitted on 09/05/20 with right upper quadrant pain secondary to choledocholith iasis / acute cholecystitis. She underwent ERCP with stone removal on 09/06/20 and laparoscopic cholecystectomy yesterday. Following cholecystectomy, around 2:50 pm, patient developed atrial fibrillation with RVR in the 130s-140s. She states that she could feel tachy- palpitations in association with the arrhythmia, which is the first time that she has ever felt palpitations. She was given IV Lopressor and eventually spontaneously converted to normal sinus rhythm around 7:10 pm. She denies any chest discomfort or shortness of breath. She denies lightheadedness, syncope, or near syncope. She notes chronic mild lower extremity edema. Her biggest complaint right now is tiredness and fatigue as she has not been sleeping well. She also notes back discomfort. Family history: Brother had a SC in his 60s. Mother had an "arrhythmia." Social history: She is a . She lives with her son. No smoking. No alcohol use. 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 0.5 mg-luis-Zn tablet ibuprofen 200 mg tablet 200 mg PO Q6H PRN #7 tab 08/09/19 09/05/20 Rx phenytoin sodium extended 100 mg 100 mg PO TID #90 cap 01/17/20 09/05/20 Rx capsule gabapentin 100 mg capsule 100 mg PO DAILY PRN cap 02/04/20 09/05/20 History phenobarbital 16.2 mg tablet 16.2 mg PO .COMPLEX #450 tab 04/26/20 09/05/20 Rx levothyroxine 50 mcg tablet 50 mcg PO DAILY #90 tab 05/11/20 09/05/20 Rx lorazepam 1 mg tablet 0.5 - 1 mg PO DAILY PRN 30 Days 06/13/20 09/05/20 Rx #30 tab atenolol 50 mg tablet 50 mg PO DAILY #90 tab 07/19/20 09/05/20 Rx telmisartan 80 mg tablet 80 mg PO DAILY #90 tab 08/02/20 09/05/20 Rx Patient History Medical History Abdominal pain, epigastric Chest pain Hypertension Hypothyroidism Lumbar spinal stenosis 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 Mother No problems noted. 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 Beliefs That Will Affect Care: None marital status: / Current Living Situation: Family Current Living Situation Comment: lives with son current occupational status: retired How many Children do You have: 2 Other Information That Helps Us Care for You: No Feels Safe at Home: Yes Safety Concerns: Feels Safe At This Time Childhood Exposure to Second-Hand Smoke: No Diet Comment: Regular diet caffeine: Yes (coffee) Dental Care, Regularly: Yes Physical Activity Frequency: 1-2 Times per Week Seatbelt Use: always Sunscreen Use: Yes Assistive Devices: Walker Review of Systems Review of Systems: All systems reviewed & are unremarkable except as noted in Subjective Physical Exam Physical Exam: Constitutional: Alert, oriented, in no acute distress HEENT: Head is atraumatic and normocephalic. EOMs intact. Sclera non-icteric. Face is symmetric. No perioral cyanosis. Mucous membranes moist Neck: Supple, no JVD Pulmonary: Normal respiratory effort, clear to auscultation throughout Cardiac: Regular rate and rhythm, normal S1 and S2, no gallops, no rubs, no murmurs Extremities: No pitting lower extremity edema. No clubbing or cyanosis. 2+ radial pulses Abdomen: Normal bowel sounds, soft, nondistended Skin: Normal skin color, turgor, and pigmentation. No rash or skin lesions Neurological: Oriented to person, place, and time Results & Data ([facility]) Vital Signs (Past 12 Hours) Vital Signs Temp Pulse Pulse Resp BP BP Pulse Ox 09/08/20 08:00 97.9 F 85 18 163/72 H 97 09/08/20 04:00 97.9 F 52 L 20 161/69 H 99 09/08/20 00:00 59 L 09/07/20 23:00 97.7 F 61 20 147/70 H 95 Diagnostic Findings ECG 09/07/20 @ 16:10: Atrial fibrillation with RVR at [address] abnormality. ECG 09/07/20 @ 17:23: Sinus rhythm at 71 bpm. Normal ECG. ECG 09/08/20 @ 00:35: Sinus rhythm at 65 bpm. Normal ECG. Telemetry: Atrial fibrillation with RVR in the 130s-140s from 2:50 pm - 7:10 pm yesterday. Otherwise, sinus rhythm in the 50s-60s. PG Care Time/CCT Total # of Minutes Spent Total Time Spent with Patient: Total time spent is greater than 50% in coordination of care (as documented) at patient's floor/unit and/or counseling patient: Coding Level of Care Code 75698 Initial Inpt Care Lvl 3 Diagnoses Paroxysmal atrial fibrillation I48.0 Elevated troponin R77.8 Time Spent (min) 45
[2020-09-08] MEDS: CALCIUM 600MG + VIT D 400 IU TAB PO SCH (10:08)
[2020-09-08] MEDS: DICLOFENAC SOD 1% GEL 100 GM TUBE EXT SCH ×4 (10:09→20:18)
[2020-09-08] MEDS: CHOLECALCIFEROL 1,000 UNITS 25 MCG TAB PO SCH (10:09)
[2020-09-08] MEDS: METOPROLOL SUCC 25MG EXT REL TAB PO SCH ×2 (10:10→20:24)
[2020-09-08] MEDS: TELMISARTAN 40 MG TAB PO SCH (10:11)
--- NOTE | 2020-09-08 18:16 | Billing Data ---
Date of Service September 08, 2020 Coding Level of Care Code 15787 Subseq Hosp Care Lvl 3
[2020-09-08] MEDS: ENOXAPARIN INJ 40 MG/0.4 ML SYR SQ SCH (20:16)
--- NOTE | 2020-09-08 21:31 | XCELERA ---
[id number]
[2020-09-09] MEDS: ACETAMINOPHEN 500 MG TAB PO PRN ×2 (00:12→20:23)
[2020-09-09] MEDS: PIPERACILLIN/TAZOBACTAM 3.375 GM in DEXTROSE 5% 100 ML IV SCH (04:12)
[2020-09-09] MEDS: PHENYTOIN SODIUM ER 100 MG CAP PO SCH ×3 (05:44→21:28)
[2020-09-09] MEDS: LEVOTHYROXINE SODIUM 50 MCG TABLET PO SCH (05:45)
[2020-09-09 07:21] LABS: BUN Creatinine Ratio 10.3 (10-20); Calcium 8.5 mg/dl (8.5-10.1); Creatinine Clr Calc Pharmacy 55.8 ml/min; Est GFR (African American) 91.6 ml/min; Potassium 3.1 mmol/L (3.5-5.1)
--- NOTE | 2020-09-09 07:35 | Electrocardiogram Report ---
Test Reason : Blood Pressure : / mmHG Vent. Rate : 124 BPM Atrial Rate : 119 BPM P-R Int : 000 ms QRS Dur : 094 ms QT Int : 340 ms P-R-T Axes : 000 027 123 degrees QTc Int : 488 ms Atrial fibrillation with rapid ventricular response Diffuse ST depression Abnormal ECG When compared with ECG of 05-SEP-2020 15:48, Atrial fibrillation has replaced Sinus rhythm Vent. rate has increased BY [address] depression is now present T wave amplitude has decreased in Inferior leads Confirmed by Raheem Stewart ([id number]) on 09/09/2020 7:35:31 AM Referred By: REFERRED SELF Confirmed By:Raheem Stewart
--- NOTE | 2020-09-09 07:39 | Electrocardiogram Report ---
Test Reason : Blood Pressure : / mmHG Vent. Rate : 071 BPM Atrial Rate : 071 BPM P-R Int : 208 ms QRS Dur : 094 ms QT Int : 424 ms P-R-T Axes : 074 -12 061 degrees QTc Int : 460 ms Normal sinus rhythm Normal ECG When compared with ECG of 07-SEP-2020 16:10, Sinus rhythm has replaced Atrial fibrillation Vent. rate has decreased BY [address] no longer depressed in Inferior leads ST no longer depressed in Anterolateral leads T wave inversion no longer evident in Lateral leads Confirmed by Raheem Stewart ([id number]) on 09/09/2020 7:39:39 AM Referred By: REFERRED SELF Confirmed By:Raheem Stewart
--- NOTE | 2020-09-09 07:50 | Electrocardiogram Report ---
Test Reason : Blood Pressure : / mmHG Vent. Rate : 065 BPM Atrial Rate : 065 BPM P-R Int : 184 ms QRS Dur : 092 ms QT Int : 438 ms P-R-T Axes : 075 007 066 degrees QTc Int : 455 ms Normal sinus rhythm Normal ECG When compared with ECG of 07-SEP-2020 17:23, No significant change was found Confirmed by Raheem Stewart ([id number]) on 09/09/2020 7:50:13 AM Referred By: REFERRED SELF Confirmed By:Raheem Stewart
[2020-09-09] MEDS: DICLOFENAC SOD 1% GEL 100 GM TUBE EXT SCH ×4 (08:05→21:25)
[2020-09-09] MEDS: CHOLECALCIFEROL 1,000 UNITS 25 MCG TAB PO SCH (08:06)
[2020-09-09] MEDS: CALCIUM 600MG + VIT D 400 IU TAB PO SCH (08:06)
[2020-09-09] MEDS: METOPROLOL SUCC 25MG EXT REL TAB PO SCH ×2 (08:06→21:28)
[2020-09-09] MEDS: TELMISARTAN 40 MG TAB PO SCH (08:06)
[2020-09-09] MEDS ORDERED: POTASSIUM CHLORIDE CRTAB 20 MEQ TABCR PO STA (08:51)
--- NOTE | 2020-09-09 11:05 | Surgery Progress Note ---
Date of Service September 09, 2020 Assessment & Plan (1) Cholelithiasis: Postoperative day #2 status post laparoscopic cholecystectomy after ERCP From surgical standpoint doing very well Tolerating diet GI function has returned Total bilirubin is normal and AST and ALT are continuing to decrease towards normal Cardiology issues as per cardiology and internal medicine Admission and Anticipated Discharge Date Admission Date: September 05, 2020 Subjective Postoperative day #2 status post laparoscopic cholecystectomy after ERCP for choledocholithiasis and cholelithiasis. Patient sitting in chair He has very little abdominal pain Has a good appetite and ate well Tolerated regular diet Passing flatus but no bowel movement as yet Physical Exam Gastrointestinal (Abdomen): Inspection/Auscultation: normal bowel sounds and + abdominal surgical incision (All are clean, dry and intact); abdomen not distended Percussion/Palpation: + abdomen tender (Minimal incisional) and abdomen soft Results & Data ([facility]) Vital Signs (Past 12 Hours) Vital Signs Temp Pulse Pulse Resp BP BP Pulse Ox 09/09/20 08:53 73 09/09/20 07:34 36.7 C 62 16 178/71 H 94 09/09/20 05:03 171/77 H 09/09/20 03:56 36.8 C 72 18 189/98 H 94 09/08/20 23:34 65 Laboratory Results 09/09/20 Range/Units 06:46 Sodium 138 (136-145) mmol/L Potassium 3.1 L (3.5-5.1) mmol/L Chloride 105 (98-107) mmol/L Carbon Dioxide 26 (21-32) mmol/L Anion Gap 7.0 (3-11) BUN 7 (7-18) mg/dl Creatinine 0.70 (0.6-1.2) mg/dl Est Cr Clr Drug Dosing 55.8 ml/min Est GFR ( Amer) 91.6 ml/min Est GFR (Non-Af Amer) 79.0 ml/min BUN/Creatinine Ratio 10.3 (10-20) Glucose 91 (70-99) mg/dl Calcium 8.5 (8.5-10.1) mg/dl (1) Cholelithiasis Cholelithiasis location: gallbladder and bile duct
--- NOTE | 2020-09-09 16:53 | Hospitalist Progress Note ---
Date of Service September 09, 2020 Assessment & Plan (1) Cholelithiasis: Now status post both ERCP and cholecystectomy. Doing well. Diet advanced. Change antibiotics to Augmentin. Stable for home in this regard (2) Paroxysmal atrial fibrillation: Converted to sinus rhythm. Echo noted/very reassuring. Switched her atenolol over to metoprolol. [id number] would warrant anticoagulation, but given how brief the A. fib was, cardiology would like to monitor further as an outpatient before making this decision. (3) Elevated troponin: Demand ischemia related to RVRoutpatient follow-up (4) Back pain: At this point appears to be referred from her right upper abdominal issuesanticipate this will improve. (5) Hyponatremia: Mild (6) Hypertension: Blood pressure is a little bit up, but given the context not surprising. No indication for acute treatment (7) Seizure disorder: Stable, continue home meds (8) Hypothyroidism: Continue levothyroxine (9) DVT prophylaxis: Lovenox (10) Discharge planning issues: AGNIESZKA Rowley, increase activity, hopefully home tomorrow if she does well, if not then we may need to consider more of a rehab emphasis. Admission and Anticipated Discharge Date Admission Date: September 05, 2020 Subjective Generally feeling better overall, but still has a decent amount of right-sided periscapular back pain. Has not gotten up and walked a whole lot yet, a little bit worried about how well she will do. No other new complaints. Review of Systems Review of Systems: All systems reviewed & are unremarkable except as noted in HPI & below Physical Exam Physical Exam: Vitals noted, in general she is awake and alert pleasant no distress. HEENT normocephalic atraumatic mucous membranes moist. Breathing unlabored no accessory muscle use good effort. Skin shows no rashes no pallor or icterus. Neuro shows no focal deficits. Results & Data Results & Data ([facility]) Vital Signs (Past 12 Hours) Vital Signs Temp Pulse Pulse Resp BP BP Pulse Ox 09/09/20 15:35 98.4 F 69 18 161/74 H 96 09/09/20 15:28 60 09/09/20 14:48 09/09/20 11:57 98.1 F 63 18 181/79 H 96 09/09/20 08:53 73 09/09/20 07:34 98.1 F 62 16 178/71 H 94 09/09/20 05:03 171/77 H Pulse Ox 09/09/20 15:35 09/09/20 15:28 09/09/20 14:48 62 L 09/09/20 11:57 09/09/20 08:53 09/09/20 07:34 09/09/20 05:03 PG Care Time/CCT Total # of Minutes Spent Total Time Spent with Patient: Total time spent is greater than 50% in coordination of care (as documented) at patient's floor/unit and/or counseling patient: Coding Level of Care Code 06082 Subseq Hosp Care Lvl 3 Diagnoses Cholelithiasis K80.20 Cholelithiasis location: gallbladder and bile duct Paroxysmal atrial fibrillation I48.0 Elevated troponin R77.8 Back pain M54.9 Hyponatremia E87.1 Hypertension I10 Seizure disorder G40.909 Hypothyroidism E03.9 DVT prophylaxis Z29.9 Discharge planning issues Z02.9 (1) Cholelithiasis Cholelithiasis location: gallbladder and bile duct
[2020-09-09] MEDS: AMOXICILLIN/CLAVULANATE 875 MG TAB PO SCH (17:29)
[2020-09-09] MEDS: ENOXAPARIN INJ 40 MG/0.4 ML SYR SQ SCH (21:33)
[2020-09-10] MEDS: PHENYTOIN SODIUM ER 100 MG CAP PO SCH ×2 (06:08→14:11)
[2020-09-10] MEDS: LEVOTHYROXINE SODIUM 50 MCG TABLET PO SCH (06:09)
[2020-09-10 06:37] LABS: Basophils # (auto) 0.03 K/uL (0-0.2); Basophils % (auto) 0.4 %; Eosinophils # (auto) 0.49 K/uL (0-0.5); Eosinophils % (auto) 6.4 %; Hematocrit (blood only) 35.3 % (37-47); Hemoglobin 12.2 g/dL (12.0-16.0); Immature Granulocytes # (auto) 0.04 K/uL (0.00-0.02); Immature Granulocytes % (auto) 0.5 %; Lymphocytes # (auto) 2.38 K/uL (1.2-3.4); Lymphocytes % (auto) 31.3 %; Mean Corpuscular Hemoglobin 34.1 pg (25-34); Mean Corpuscular Hgb Conc 34.6 g/dL (32-36); Mean Corpuscular Volume 98.6 fL (80-100); Mean Platelet Volume 9.8 fL (7.4-10.4); Monocytes # (auto) 1.07 K/uL (0.11-0.59); Monocytes % (auto) 14.1 %; Neutrophils # (auto) 3.59 K/uL (1.4-6.5); Neutrophils % (auto) 47.3 %; Platelet Count 163 K/uL (130-400); RDW Coefficient of Variation 13.3 % (11.5-14.5); RDW Standard Deviation 48.3 fL (36.4-46.3); Red Blood Count 3.58 M/uL (4.2-5.4)
[2020-09-10 07:03] LABS: BUN Creatinine Ratio 15.9 (10-20); Calcium 8.9 mg/dl (8.5-10.1); Creatinine Clr Calc Pharmacy 69.6 ml/min; Est GFR (African American) 99.1 ml/min; Est GFR (Non-African American) 85.5 ml/min; Potassium 3.6 mmol/L (3.5-5.1)
[2020-09-10] MEDS: CALCIUM 600MG + VIT D 400 IU TAB PO SCH (09:57)
[2020-09-10] MEDS: AMOXICILLIN/CLAVULANATE 875 MG TAB PO SCH (09:57)
[2020-09-10] MEDS: DICLOFENAC SOD 1% GEL 100 GM TUBE EXT SCH ×2 (09:58→11:49)
[2020-09-10] MEDS: CHOLECALCIFEROL 1,000 UNITS 25 MCG TAB PO SCH (09:58)
[2020-09-10] MEDS: METOPROLOL SUCC 25MG EXT REL TAB PO SCH (09:59)
[2020-09-10] MEDS: TELMISARTAN 40 MG TAB PO SCH (09:59)
--- NOTE | 2020-09-10 12:08 | Surgery Progress Note ---
Date of Service September 10, 2020 Assessment & Plan (1) Cholelithiasis: Postoperative day #3 status post laparoscopic cholecystectomy and #4 status post ERCP Doing well Tolerating regular diet Ready for discharge from surgical standpoint when ready from medical standpoint. Admission and Anticipated Discharge Date Admission Date: September 05, 2020 Subjective Postoperative day #3 status post lap marisela and postoperative day #4 status post ERCP Tolerated regular diet Feels well Has minimal abdominal pain Denies nausea and vomiting Continues to pass flatus but has not had bowel movement as yet Physical Exam Gastrointestinal (Abdomen): Inspection/Auscultation: normal bowel sounds and + abdominal surgical incision (All are clean, dry and intact); abdomen not distended Percussion/Palpation: + abdomen tender (Mild incisional only) and abdomen soft Results & Data ([facility]) Vital Signs (Past 12 Hours) Vital Signs Temp Pulse Pulse Resp BP BP Pulse Ox 09/10/20 11:18 36.5 C 57 L 18 172/78 H 96 09/10/20 07:50 36.9 C 60 18 174/79 H 96 09/10/20 02:27 36.8 C 63 20 183/74 H 95 09/10/20 00:55 62 Laboratory Results 09/10/20 09/10/20 09/10/20 Range/Units 06:22 06:22 06:22 WBC 7.60 (4.8-10.8) K/uL RBC 3.58 L (4.2-5.4) M/uL Hgb 12.2 (12.0-16.0) g/dL Hct 35.3 L (37-47) % MCV 98.6 (80-100) fL MCH 34.1 H (25-34) pg MCHC 34.6 (32-36) g/dL RDW Std Deviation 48.3 H (36.4-46.3) fL RDW Coeff of José Miguel 13.3 (11.5-14.5) % Plt Count 163 (130-400) K/uL MPV 9.8 (7.4-10.4) fL Immature Gran % (Auto) 0.5 % Neut % (Auto) 47.3 % Lymph % (Auto) 31.3 % [place] % (Auto) 14.1 % Eos % (Auto) 6.4 % Baso % (Auto) 0.4 % Neut # (Auto) 3.59 (1.4-6.5) K/uL Lymph # (Auto) 2.38 (1.2-3.4) K/uL [place] # (Auto) 1.07 H (0.11-0.59) K/uL Eos # (Auto) 0.49 (0-0.5) K/uL Baso # (Auto) 0.03 (0-0.2) K/uL Immature Gran # (Auto) 0.04 H (0.00-0.02) K/uL Sodium 137 (136-145) mmol/L Potassium 3.6 D (3.5-5.1) mmol/L Chloride 103 (98-107) mmol/L Carbon Dioxide 29 (21-32) mmol/L Anion Gap 5.0 (3-11) BUN 9 (7-18) mg/dl Creatinine 0.55 L (0.6-1.2) mg/dl Est Cr Clr Drug Dosing 69.6 ml/min Est GFR ( Amer) 99.1 ml/min Est GFR (Non-Af Amer) 85.5 ml/min BUN/Creatinine Ratio 15.9 (10-20) Glucose 89 (70-99) mg/dl Calcium 8.9 (8.5-10.1) mg/dl Vitamin B12 Pending (1) Cholelithiasis Cholelithiasis location: gallbladder and bile duct
[2020-09-10] MEDS ORDERED: AMOXICILLIN/CLAVULANATE 875MG HOME PACK PO ONE (16:17)
--- NOTE | 2020-09-10 19:26 | Discharge Summary ---
Date of Service September 10, 2020 Admission HPI Per Admitting Provider This is an 84-year-old female with past medical history of epilepsy that presents today complaining of right upper quadrant abdominal pain. Patient is pleasant good historian. Patient tells me that the pain started approximately 10 AM today. It was sudden and very sharp without any warning. It is focused over the right upper quadrant without any radiation. She denied any nausea, vomiting, diarrhea, constipation, fever or chills. Pain persisted if not worsened slightly until she came to the emergency room and was given a dose of IV Toradol. At the time my evaluation, the pain i is mostly resolved and she is having no complaints. Principal Diagnosis Cholecystitis Discharge Exam In general she is awake and alert pleasant no distress. HEENT normocephalic atraumatic mucous membranes moist. Breathing unlabored no accessory muscle use good effort. Skin shows no rashes no pallor or icterus. Neuro without any focal deficits. Discharge Data Allergies Allergy/AdvReac Type Severity Reaction Status Date / Time hydrochlorothiazide AdvReac Severe seizure Verified 09/05/20 16:06 activity amlodipine AdvReac Intermediate Dizziness Verified 09/05/20 16:06 enalapril AdvReac Intermediate cough Verified 09/05/20 16:06 Consultations 09/05/20 17:40 ED Decision to Admit Stat 09/05/20 21:25 Consult Gastroenterology Routine Consult General Surgery Routine 09/07/20 16:17 Consult Cardiology Routine Procedures Performed Operation Date: 09/06/20 15:30 Actual Procedures p Esophagogastroduodenoscopy, Endoscopic ultrasound, Endoscopic Retrograde Cholangiopancreatography(Not Applicable) - Bibi Padilla MD Operation Date: 09/07/20 11:30 Actual Procedures p Laparoscopic Cholecystectomy(Not Applicable) - Kian Narvaez DO Ordered Studies 09/05/20 15:35 US gallbladder Stat 09/05/20 21:25 MR MRCP Urgent 09/06/20 13:00 FL ERCP biliary ductal Routine 09/06/20 14:03 US upper EUS PACS images Routine Hospital Course (1) Cholelithiasis: Now status post both ERCP and cholecystectomy. Doing well. Diet advanced. Changed antibiotics to Augmentin. Stable for home (late addendumpatient called after discharge and unfortunately her pharmacy was closed. Worked with inpatient pharmacy and they were able to release Augmentin dosing for tonight and tomorrow morning which I then gave to the patient's friend who she authorized to lease picker the medication) (2) Paroxysmal atrial fibrillation: Converted to sinus rhythm. Echo noted/very reassuring. Switched her atenolol over to metoprolol. [id number] would warrant anticoagulation, but given how brief the A. fib was, cardiology would like to monitor further as an outpatient before making this decision. (3) Elevated troponin: Demand ischemia related to RVRoutpatient follow-up (4) Back pain: At this point appears to be referred from her right upper abdominal issuesand seems to be improving (5) Hyponatremia: Mildresolved (6) Hypertension: Blood pressure is a little bit up, but given the context not surprising. No indication for acute treatment - outpt f/u (7) Seizure disorder: Stable, continue home meds (8) Hypothyroidism: Continue levothyroxine (9) DVT prophylaxis: Lovenox utilized during her stay (10) Discharge planning issues: stable for home Total Time Total Time Spent Total Time Spent (In Minutes): >30 Discharge Plan Discharge Items Patient Disposition: Home - Self-Care Reason For Visit: ABD PAIN Discharge Diagnosis: laparoscopic cholecystectomy Activity: As commented below Lifting: No more than 10 pounds Bathing Comment: ok to shower, remove outer bandages on Friday Driving/Machine Use: in 1 week Non-emergency contact: Primary Care Provider and Surgeon Call non-emergency contact if: you have any medication questions, your symptoms worsen, your pain is not controlled, your pain is worsening, your pain is concerning for you, you have a fever, your temperature is above 101.5, your wound has increased redness, your wound has increased drainage and your wound pain has increased Follow-up/Referrals: Kian Narvaez DO [Physician] - (Please call the office to make an appt in approx 2 weeks) Cyrus Gamble DO [Primary Care Provider] - Diet: Regular Addtl Attending Provider Instructions: Your outer surgical dressings may be removed. You will have small white bandages on underneath called steri-strips. You may shower with these on. They will tend to fall off on their own within 7-10days. Pending Studies at Discharge: Yes Studies:: surgical pathology Stand-Alone Forms: [facility], Smoking Cessation Medications and DC Order Prescriptions: New metoprolol succinate 50 mg tablet extended release 24 hr 50 mg PO DAILY Qty: 30 RF: 0 amoxicillin-pot clavulanate [Augmentin] 875-125 mg tablet 1 tab PO BID Qty: 8 RF: 0 Continued phenytoin sodium extended 100 mg capsule 100 mg PO TID Qty: 90 RF: 1 phenobarbital 16.2 mg tablet 16.2 mg PO .COMPLEX Qty: 450 RF: 0 levothyroxine 50 mcg tablet 50 mcg PO DAILY Qty: 90 RF: 3 lorazepam 1 mg tablet 0.5 - 1 mg PO DAILY PRN (Reason: seizure activity) 30 Days Qty: 30 RF: 0 telmisartan 80 mg tablet 80 mg PO DAILY Qty: 90 RF: 3 gabapentin 100 mg capsule 100 mg PO DAILY PRN (Reason: Pain) RF: 0 cholecalciferol (vitamin D3) 2,000 unit tablet 2,000 units PO DAILY RF: 0 Caltrate + D3 Plus Minerals 300 mg-800 unit -25 mg-0.5 mg tablet 1 tab PO DAILY RF: 0 acetaminophen [Tylenol Extra Strength] 500 mg tablet 500 mg PO Q6H PRN (Reason: Pain) RF: 0 ibuprofen [Advil] 200 mg tablet 200 mg PO Q6H PRN (Reason: pain) Qty: 7 RF: 0 Discontinued atenolol 50 mg tablet 50 mg PO DAILY Qty: 90 RF: 3 Discharge Orders: Discharge Order (Routine); Ordered 09/10/20 Ordered By: Valentin Thomas Admission Data Admit Date/Time: 09/05/20 18:31 Attending Provider: Valentin Thomas Admit Provider: Waqas London Primary Care Provider: Cyrus Gamble Other Providers: Waqas London ; Gabe Dow ; Kian Narvaez ; Jacques Hanks Jr Other Interventions: Discharge Summary Assessment (RN) Last Done: 09/10/20 14:45 Coding Level of Care Code D/C Day Management >30 mins Diagnoses Cholelithiasis K80.20 Cholelithiasis location: gallbladder and bile duct Paroxysmal atrial fibrillation I48.0 Elevated troponin R77.8 Back pain M54.9 Hyponatremia E87.1 Hypertension I10 Seizure disorder G40.909 Hypothyroidism E03.9 DVT prophylaxis Z29.9 Discharge planning issues Z02.9
== END 2020-09-10 16:17 | disposition home or self-care (01) | DRG 418 ==
LOC: ED 14:18 → 2W 18:31 → SUATTDRO 18:31 → 2W 20:05

== ENCOUNTER 2022-03-26 12:59 | Observation (INO) ==
--- NOTE | 2022-03-26 13:46 | XRay Report ---
XR chest 2V PA/lateral CLINICAL HISTORY: SOB TECHNIQUE: 2 views of the chest were obtained. Comparison: Comparison is made to chest radiograph 10/18/2021 FINDINGS: No lines and tubes are seen. Calcified aortic knob is seen. The lungs are clear. No evidence of pleur al effusion or pneumothorax. IMPRESSION: No acute abnormalities and in particular no evidence of pneumonia. ACT 112: Negative or not required by law. Electronically signed by: Chintan Marks M.D. 03/26/2022 1:45 PM
[2022-03-26 18:06] LABS: Basophils # (auto) 0.11 K/uL (0-0.2); Basophils % (auto) 0.8 %; Eosinophils % (auto) 1.4 %; Hematocrit (blood only) 41.8 % (34.1-44.9); Hemoglobin 14.2 g/dl (12.0-16.0); Immature Granulocytes # (auto) 0.09 K/uL (0.00-0.02); Immature Granulocytes % (auto) 0.7 %; Lymphocytes # (auto) 4.18 K/uL (1.2-3.4); Lymphocytes % (auto) 30.2 %; Mean Corpuscular Hemoglobin 33.6 pg (25.0-34.0); Mean Corpuscular Volume 98.8 fL (80.0-100.0); Mean Platelet Volume 9.9 fL (9.4-12.3); Monocytes # (auto) 1.61 K/uL (0.24-0.82); Monocytes % (auto) 11.6 %; Neutrophils # (auto) 7.63 K/uL (1.4-6.5); Neutrophils % (auto) 55.3 %; Platelet Count 200 K/uL (130-400); RDW Coefficient of Variation 12.3 % (11.5-14.5); Red Blood Count 4.23 M/uL (3.93-5.22); White Blood Count 13.82 K/ul (4.8-10.8)
[2022-03-26 18:28] LABS: Partial Thromboplastin Ratio 1.2; Partial Thromboplastin Time 31.9 Seconds (21.0-31.0); Prothrombin Time 10.7 Seconds (9.0-12.0)
[2022-03-26 18:32] LABS: Alanine Aminotransferase 10 U/L (7-52); Albumin Globulin Ratio 1.1 (0.9-2); Albumin Level 4.2 gm/dl (3.4-5.0); Alkaline Phosphatase 80 U/L (34-104); Anion Gap 7 (3-11); Aspartate Aminotransferase 26 U/L (13-39); BUN Creatinine Ratio 17.9 (10-20); Bilirubin,Total 0.5 mg/dl (0.2-1.0); Blood Urea Nitrogen 14 mg/dl (6-23); Calcium 9.4 mg/dl (8.5-10.1); Carbon Dioxide 29 mmol/L (21-32); Chloride 101 mmol/L (98-107); Est GFR (African American) 79.2 ml/min; Est GFR (Non-African American) 68.4 ml/min; Globulin 3.8 gm/dl (2.5-4.0); Glucose 96 mg/dl (70-99(Fasting)); Magnesium 2.1 mg/dl (1.7-2.4); Potassium 3.8 mmol/L (3.5-5.1); Sodium 137 mmol/L (136-145)
--- NOTE | 2022-03-26 19:31 | Emergency Department Note ---
History of Present Illness General Chief complaint: Shortness of Breath/Dyspnea Time Seen by Provider: 03/26/22 18:51 History of Present Illness This is an 86-year-old female presents emergency department due to concern for an unusual episode at home where she did not feel well and when checking her pulse she had an elevated heart rate at 104. Patient states she checked her blood pressure which was also mildly elevated at that time. Patient states she got up at 10 AM after sleeping well overnight and noticed symptoms almost right away. Patient states at that time she also had slight dyspnea and pain in her back. She states her symptoms have since resolved by the time of my evaluation. Patient seen and evaluated in the triage waiting room area as she presented on day of high volume and acuity. We discussed her vital signs of upon presentation here which were reassuring. Patient denied any sense of chest pain or pressure, palpitations, dizziness, nausea, or sweating. Patient states she does have a prior history of atrial fibrillation following surgery although she has not had recurrence since then. She states she does follow with Dr. Hanks of cardiology and sees them regularly. She believes her last echo was a year and a half ago when she had the episode of atrial fibrillation. Patient denies any prior history of ACS or CHF. No prior PE. She denies any recent medication changes, illness, fevers or chills, URI symptoms, nausea, vomiting, diarrhea. Patient denies any recent leg swelling. Orders placed per nurse protocol prior to my evaluation. These were reviewed with the patient in the triage waiting room area. Home Medications Medication Instructions Recorded Confirmed Type acetaminophen 500 mg tablet 500 mg PO Q6H PRN Pain 07/14/19 03/26/22 History (Tylenol Extra Strength) calcium carb 300 mg-D3 800 1 tab PO QAM 07/14/19 03/26/22 History unit-mag ox 25 mg-copy editor 0.5 mg-luis-Zn tablet (Caltrate + D3 Plus Minerals) phenytoin sodium extended 100 mg 100 mg PO TID #90 caps 01/17/20 03/26/22 Rx capsule phenobarbital 16.2 mg tablet 16.2 mg PO .COMPLEX Seizure #450 04/26/20 03/26/22 Rx tabs lorazepam 1 mg tablet 0.5 - 1 mg PO DAILY PRN seizure 06/13/20 03/26/22 Rx activity 30 days #30 tabs gabapentin 100 mg capsule 200 mg PO HS 09/26/20 03/26/22 History aspirin 81 mg tablet,delayed 81 mg PO QAM 11/14/20 03/26/22 History release (Adult Low Dose Aspirin) levothyroxine 50 mcg tablet 50 mcg PO QAM 11/14/20 03/26/22 History telmisartan 80 mg tablet 80 mg PO QAM #90 tabs 06/26/21 03/26/22 Rx metoprolol succinate 50 mg 50 mg PO QAM #90 tabs 08/09/21 03/26/22 Rx tablet,extended release 24 hr cholecalciferol (vitamin D3) 50 2,000 unit PO QDL 02/25/22 03/26/22 History mcg (2,000 unit) tablet Allergies Allergy/AdvReac Type Severity Reaction Status Date / Time adhesive tape Allergy Intermediate Red sore, Verified 03/26/22 20:31 blisters (from electrodes) hydrochlorothiazide AdvReac Severe Seizure Verified 03/26/22 20:31 activity amlodipine AdvReac Intermediate Dizziness Verified 03/26/22 20:31 enalapril AdvReac Intermediate Cough Verified 03/26/22 20:31 Past Med/Surg History Medical History History of COVID-19 Fall 2019 and then PNA 03/2020 (kept overnight for tx) > resolved Hypertension Hypothyroidism Lumbar spinal stenosis 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 Hanks Periodic limb movement disorder Peripheral edema Peripheral neuropathy Seizure disorder First seizure age 18, most recent seizure 10+ years ago Varicose veins of both legs with edema Surgical History History of colonoscopy History of dilation and curettage History of ERCP EGD, EUS, ERCP (09/06/20): Grade 2 view, MAC#3, ETT 7 at [facility] Hx laparoscopic cholecystectomy Laparoscopic cholecystectomy (09/07/20): Grade 2 view, MAC#3, ETT 7.0 at [facility] Hx of laparoscopy x2 (ectopic , ruptured ovarian cyst) S/P appendectomy S/P cataract surgery S/P tonsillectomy and adenoidectomy Family History Father , age 90 No problems noted. Mother No problems noted. Brother Myocardial infarction Other No pertinent family history Denies family history of Ovarian cancer Prostate cancer Breast cancer Lung cancer Colorectal cancer Social History Smoking Status: Never smoker Second Hand Exposure: No; Hx Alcohol Use: No Hx Substance Use: No Preferred Language: Upper Sorbian Communication Ability: Effective Visual Impairment: Limited Hearing Ability: Normal Weed Thinner Required: No Beliefs That Will Affect Care: None marital status: / Current Living Situation: Family Current Living Situation Comment: lives with son current occupational status: retired How many Children do You have: 2 Feels Safe at Home: Yes Childhood Exposure to Second-Hand Smoke: No Diet Comment: Regular diet caffeine: Yes (coffee) Dental Care, Regularly: Yes Physical Activity Frequency: 1-2 Times per Week Seatbelt Use: always Sunscreen Use: Yes Assistive Devices: Glasses and Walker Review of Systems A total of 10 systems reviewed and were otherwise negative All systems reviewed & are unremarkable except as noted in HPI & below Physical Exam Vital Signs Vital Signs - 24 hr 03/26/22 13:22 Temperature 37.0 C Temperature Source Temporal Artery Scan Pulse Rate 86 Respiratory Rate 19 Blood Pressure 141/76 H Blood Pressure Mean 97 Pulse Oximetry 98 Oxygen Delivery Method Nasal Cannula Oxygen Flow Rate 2 Sepsis Recent Fever Within 48 Hours No Sepsis New/Unexplained Change in Mental Status N/A Sepsis Action Taken by Nursing No Action Required GENERAL: alert, well appearing, well nourished, no distress, non-toxic EYE EXAM: normal conjunctiva, PERRL and EOM's grossly intact OROPHARYNX: no exudate, no erythema, lips, buccal mucosa, and tongue normal and mucous membranes are moist NECK: supple, no nuchal rigidity, no adenopathy, non-tender LUNGS: Clear to auscultation. Normal chest wall mechanics, no w/r/r HEART: no murmurs, S1 normal and S2 normal ABDOMEN: abdomen soft, non-tender, normo-active bowel sounds, no masses, no rebound or guarding. BACK: Back is symmetrical on inspection and there is no deformity, no midline tenderness, no CVA tenderness. SKIN: no rashes and no bruising UPPER EXTREMITIES: upper extremities are grossly normal. FROM, nml pulses b/l. LOWER EXTREMITIES: No pitting edema. FROM, nml pulses b/l. NEURO EXAM: Normal sensorium, cranial nerves II-XII grossly intact, normal speech, no gross weakness of arms, no gross weakness of legs. Gross sensation intact. Medical Decision Making Differential Diagnosis Differential diagnosis includes etiologies such as premature contractions, electrolyte abnormality, cardiac dysrhythmia, thyroid dysfunction, pulmonary embolism, infection, gastrointestinal, as well as others were entertained. Medical Records Attestation: I reviewed the patient's medical records. Home Medications Current Medication List: was personally reviewed by me Laboratory Data Attestation: I reviewed the patient's lab results. Result diagrams: 03/26/22 17:50 03/26/22 17:50 Lab Results 03/26/22 03/26/22 03/26/22 Range/Units 17:50 17:50 17:50 WBC 13.82 H (4.8-10.8) K/ul RBC 4.23 (3.93-5.22) M/uL Hgb 14.2 (12.0-16.0) g/dl Hct 41.8 (34.1-44.9) % MCV 98.8 (80.0-100.0) fL MCH 33.6 (25.0-34.0) pg MCHC 34.0 (32.0-36.0) g/dL RDW Std Deviation 45.0 (36.4-46.3) fL RDW Coeff of José Miguel 12.3 (11.5-14.5) % Plt Count 200 (130-400) K/uL MPV 9.9 (9.4-12.3) fL Immature Gran % (Auto) 0.7 % Neut % (Auto) 55.3 % Lymph % (Auto) 30.2 % Stewart % (Auto) 11.6 % Eos % (Auto) 1.4 % Baso % (Auto) 0.8 % Neut # (Auto) 7.63 H (1.4-6.5) K/uL Lymph # (Auto) 4.18 H (1.2-3.4) K/uL Stewart # (Auto) 1.61 H (0.24-0.82) K/uL Eos # (Auto) 0.20 (0-0.50) K/uL Baso # (Auto) 0.11 (0-0.2) K/uL Immature Gran # (Auto) 0.09 H (0.00-0.02) K/uL PT 10.7 (9.0-12.0) Seconds INR 1.0 (0.9-1.1) APTT 31.9 H (21.0-31.0) Seconds PTT Ratio 1.2 Sodium 137 (136-145) mmol/L Potassium 3.8 (3.5-5.1) mmol/L Chloride 101 (98-107) mmol/L Carbon Dioxide 29 (21-32) mmol/L Anion Gap 7 (3-11) BUN 14 (6-23) mg/dl Creatinine 0.78 (0.6-1.2) mg/dl Est Cr Clr Drug Dosing Not Reportable Est GFR ( Amer) 79.2 ml/min Est GFR (Non-Af Amer) 68.4 ml/min BUN/Creatinine Ratio 17.9 (10-20) Glucose 96 (70-99(Fasting)) mg/dl Calcium 9.4 (8.5-10.1) mg/dl Magnesium 2.1 (1.7-2.4) mg/dl Total Bilirubin 0.5 (0.2-1.0) mg/dl AST 26 (13-39) U/L ALT 10 (7-52) U/L Alkaline Phosphatase 80 (34-104) U/L Troponin I High Sens (0-14) pg/ml Total Protein 8.0 (6.0-8.3) gm/dl Albumin 4.2 (3.4-5.0) gm/dl Globulin 3.8 (2.5-4.0) gm/dl Albumin/Globulin Ratio 1.1 (0.9-2) SARS-CoV-2 (PCR) (Negative) Influenza Type A (PCR) (Neg) Influenza Type B (PCR) (Neg) RSV (RT-PCR) (Neg) 03/26/22 03/26/22 03/26/22 Range/Units 17:50 21:04 21:26 WBC (4.8-10.8) K/ul RBC (3.93-5.22) M/uL Hgb (12.0-16.0) g/dl Hct (34.1-44.9) % MCV (80.0-100.0) fL MCH (25.0-34.0) pg MCHC (32.0-36.0) g/dL RDW Std Deviation (36.4-46.3) fL RDW Coeff of José Miguel (11.5-14.5) % Plt Count (130-400) K/uL MPV (9.4-12.3) fL Immature Gran % (Auto) % Neut % (Auto) % Lymph % (Auto) % Stewart % (Auto) % Eos % (Auto) % Baso % (Auto) % Neut # (Auto) (1.4-6.5) K/uL Lymph # (Auto) (1.2-3.4) K/uL Stewart # (Auto) (0.24-0.82) K/uL Eos # (Auto) (0-0.50) K/uL Baso # (Auto) (0-0.2) K/uL Immature Gran # (Auto) (0.00-0.02) K/uL PT (9.0-12.0) Seconds INR (0.9-1.1) APTT (21.0-31.0) Seconds PTT Ratio Sodium (136-145) mmol/L Potassium (3.5-5.1) mmol/L Chloride (98-107) mmol/L Carbon Dioxide (21-32) mmol/L Anion Gap (3-11) BUN (6-23) mg/dl Creatinine (0.6-1.2) mg/dl Est Cr Clr Drug Dosing Est GFR ( Amer) ml/min Est GFR (Non-Af Amer) ml/min BUN/Creatinine Ratio (10-20) Glucose (70-99(Fasting)) mg/dl Calcium (8.5-10.1) mg/dl Magnesium (1.7-2.4) mg/dl Total Bilirubin (0.2-1.0) mg/dl AST (13-39) U/L ALT (7-52) U/L Alkaline Phosphatase (34-104) U/L Troponin I High Sens 125.5 H* 114.6 H* (0-14) pg/ml Total Protein (6.0-8.3) gm/dl Albumin (3.4-5.0) gm/dl Globulin (2.5-4.0) gm/dl Albumin/Globulin Ratio (0.9-2) SARS-CoV-2 (PCR) NEGATIVE (Negative) Influenza Type A (PCR) Negative (Neg) Influenza Type B (PCR) Negative (Neg) RSV (RT-PCR) Negative (Neg) Imaging Data Radiologist's Impression: Chest X-Ray 03/26/22 13:25 XR chest 2V PA/lateral CLINICAL HISTORY: SOB TECHNIQUE: 2 views of the chest were obtained. Comparison: Comparison is made to chest radiograph 10/18/2021 FINDINGS: No lines and tubes are seen. Calcified aortic knob is seen. The lungs are clear. No evidence of pleural effusion or pneumothorax. IMPRESSION: No acute abnormalities and in particular no evidence of pneumonia. ACT 112: Negative or not required by law. Electronically signed by: Chintan Marks M.D. 03/26/2022 1:45 PM ECG Data Attestation: I personally reviewed and interpreted this ECG as follows: Indication: + palpitations and + SOB/dyspnea Rate (beats per minute): 70 Rhythm: + normal sinus ECG Intervals/blocks: + Normal QRS and + Normal QT ECG [place]: + Normal ECG ST segments: + Normal ST segments MDM Narrative An order was placed for continuous cardiac monitoring. The monitor shows a rate of _88__ with _normal sinus__ rhythm. This is an 86-year-old female who presents emergency department due to concern for an atypical episode this morning where she did not feel well and noticed a rapid heartbeat along with shortness of breath. Patient well-appearing here and even ambulated with a walker in her usual fashion and had no recurrence of any symptoms. Troponin had been added bleed to the patient's labs and unfortunately in the day resulting positive. Patient had no acute changes on her EKG which was a normal sinus. Patient's other vital signs reassuring. I did discuss the elevated troponin with the patient. Given her age and comorbidities, as well as prior episode of atrial fibrillation, we did discuss additional inpatient evaluation and monitoring. Patient verbalized understanding and was in agreement with the plan. At this time I suspect the leukocytosis is more likely reactive from the episode this morning. No other evidence or evolving symptoms to suggest infection. Impression & Plan Tachycardia, Dyspnea, Leukocytosis, Elevated troponin Discharge Plan Visit Data Chief Complaint: Shortness of Breath/Dyspnea ED Provider: Jessica Bianchi Discharge Problem: Tachycardia, Dyspnea, Leukocytosis Patient Disposition: Being Evaluated by Hospitalist Condition: Good Prescriptions Prescriptions: No Action phenytoin sodium extended 100 mg capsule 100 mg PO TID Qty: 90 1RF Rx Instructions: Dilantin 100mg Brand Necessary; TAKES AT QAM, 1400 & QHS. phenobarbital 16.2 mg tablet 16.2 mg PO .COMPLEX Qty: 450 0RF Rx Instructions: 16.2 mg tablet take 2 tabs in the morning @ 6 am, 1 tab in the afternoon @ 2 pm, 2 tabs tablets at night 10 pm lorazepam 1 mg tablet 0.5 - 1 mg PO DAILY PRN (Reason: seizure activity) 30 Days Qty: 30 0RF telmisartan 80 mg tablet 80 mg PO QAM Qty: 90 3RF metoprolol succinate 50 mg tablet extended release 24 hr 50 mg PO QAM Qty: 90 3RF gabapentin 100 mg capsule 200 mg PO HS cholecalciferol (vitamin D3) 50 mcg (2,000 unit) tablet 2,000 unit PO QDL Caltrate + D3 Plus Minerals 300 mg-800 unit -25 mg-0.5 mg tablet 1 tab PO QAM acetaminophen [Tylenol Extra Strength] 500 mg tablet 500 mg PO Q6H PRN (Reason: Pain) aspirin [Adult Low Dose Aspirin] 81 mg tablet,delayed release (DR/EC) 81 mg PO QAM Rx Instructions: hold 5 days prior to surgery levothyroxine 50 mcg tablet 50 mcg PO QAM
--- NOTE | 2022-03-26 21:30 | History & Physical Report ---
Date of Service March 26, 2022 Assessment & Plan (1) Dyspnea: Plan: 86 yo female with PMHx of afib on aspirin, peripheral neuropathy, HTN, seizure disorder presents with shortness of breath and fatigue. #Dyspnea -presented with sudden onset dyspnea and fatigue this morning, HR and BP at the time were elevated; symptoms self resolved within a few hours after arriving to the hospital. No supplemental O2 requirement at home. Saturating well on room air. Does not appear fluid overloaded. HR and BP improved. -suspect she may have been in atrial fibrillation that self converted with resolve of symptoms given past history as below. Less likely acute coronary s yndrome or pulmonary embolism. Troponin downtrending, so ACS unlikely. Biju's PE score is 0, giving her a 1.3% chance of PE. -chest XR: no acute process -echo (2020): EF 65-70%. No valvular abnormalities. No wall abnormalities. -encourage OOB, O2 as needed -repeat limited echo ordered to review EF and RWMAs -PT/OT ordered #Leukocytosis -WBC 13.8 -suspect secondary to stress in setting of afib -no obvious signs of infection -rsv/flu/covid neg -chest XR unremarkable as above - No dysuria or symptoms of UTI. -trend cbc #elevated troponin, peaked -hsTrop 125 in ED. 2hr repeat 114. -suspect due to demand ischemia in setting of afib -EKG normal sinus with no ST changes #atrial fibrillation -single episode in 2020 at the time of her cholecystectomy -EKG showed normal sinus rhythm -follow with Dr. Hanks cardiology. On home aspirin for anti-platelet therapy, cont. Not on other anti-coagulation. Started VTE ppx lovenox. -cont. home metoprolol -monitor on tele -consider repeat outpatient event monitor #HTN BP is 140/70 in the ER. -cont. home metoprolol, telmisartan #peripheral neuropathy -cont. home gabapentin #hypothyroidism -cont. home levothyroxine -TSH ordered #seizure disorder -cont. home phenytoin and phenobarbital DVT ppx: lovenox 40mg q12 FEN/GI: HH Code Status: full Dispo: med tele obs (2) Leukocytosis: (3) Antiplatelet or antithrombotic long-term use: (4) Paroxysmal atrial fibrillation: (5) Elevated troponin: (6) Peripheral neuropathy: (7) Hypothyroidism: (8) Seizure disorder: (9) Hypertension: History of Present Illness Chief Complaint: shortness of breath, fatigue Primary Care Provider: Cyrus Gamble DO 86 yo female with PMHx of afib on aspirin, peripheral neuropathy, HTN, seizure disorder presents with shortness of breath and fatigue. After breakfast this morning she began feeling sob at rest and "felt weird" like she was suddenly fatigued. Denies chest pain, fevers, headache, abd pain, N/V/D, dysuria. When she checked her vitals at the time, her HR was in the low 100s and BP was ~180 systolic. After arriving to the hospital a few hours later, she started feeling better and is now essentially asymptomatic. Laying in bed she does not feel short of breath at the moment but hasn't tried moving around yet. She does have a h/o a single episode of afib after a cholecystectomy last year. An event monitor afterwards showed no signs of repeat afib and has felt normal since. She follows with Dr. Hanks (cardiology). It appears anticoagulation was previously discussed but it was decided she go only on aspirin at the time. Denies alcohol use. Non-smoker. No significant changes in diet. Compliant with meds. Denies recent travel or prolonged sitting. No h/o DVT. Allergies Allergy/AdvReac Type Severity Reaction Status Date / Time adhesive tape Allergy Intermediate Red sore, Verified 03/26/22 20:31 blisters (from electrodes) hydrochlorothiazide AdvReac Severe Seizure Verified 03/26/22 20:31 activity amlodipine AdvReac Intermediate Dizziness Verified 03/26/22 20:31 enalapril AdvReac Intermediate Cough Verified 03/26/22 20:31 Home Medications Medication Instructions Recorded Confirmed Type acetaminophen 500 mg tablet 500 mg PO Q6H PRN Pain 07/14/19 03/26/22 History (Tylenol Extra Strength) calcium carb 300 mg-D3 800 1 tab PO QAM 07/14/19 03/26/22 History unit-mag ox 25 mg-copy room technician 0.5 mg-luis-Zn tablet (Caltrate + D3 Plus Minerals) phenytoin sodium extended 100 mg 100 mg PO TID #90 caps 01/17/20 03/26/22 Rx capsule phenobarbital 16.2 mg tablet 16.2 mg PO .COMPLEX Seizure #450 04/26/20 03/26/22 Rx tabs lorazepam 1 mg tablet 0.5 - 1 mg PO DAILY PRN seizure 06/13/20 03/26/22 Rx activity 30 days #30 tabs gabapentin 100 mg capsule 200 mg PO HS 09/26/20 03/26/22 History aspirin 81 mg tablet,delayed 81 mg PO QAM 11/14/20 03/26/22 History release (Adult Low Dose Aspirin) levothyroxine 50 mcg tablet 50 mcg PO QAM 11/14/20 03/26/22 History telmisartan 80 mg tablet 80 mg PO QAM #90 tabs 06/26/21 03/26/22 Rx metoprolol succinate 50 mg 50 mg PO QAM #90 tabs 08/09/21 03/26/22 Rx tablet,extended release 24 hr cholecalciferol (vitamin D3) 50 2,000 unit PO QDL 02/25/22 03/26/22 History mcg (2,000 unit) tablet Past Med/Surg History Medical History History of COVID-19 Fall 2019 and then PNA 03/2020 (kept overnight for tx) > resolved Hypertension Hypothyroidism Lumbar spinal stenosis 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 Hanks Periodic limb movement disorder Peripheral edema Peripheral neuropathy Seizure disorder First seizure age 18, most recent seizure 10+ years ago Varicose veins of both legs with edema Surgical History History of colonoscopy History of dilation and curettage History of ERCP EGD, EUS, ERCP (09/06/20): Grade 2 view, MAC#3, ETT 7 at [facility] Hx laparoscopic cholecystectomy Laparoscopic cholecystectomy (09/07/20): Grade 2 view, MAC#3, ETT 7.0 at [facility] Hx of laparoscopy x2 (ectopic , ruptured ovarian cyst) S/P appendectomy S/P cataract surgery S/P tonsillectomy and adenoidectomy Family History Father , age 90 No problems noted. Mother No problems noted. Brother Myocardial infarction Other No pertinent family history Denies family history of Ovarian cancer Prostate cancer Breast cancer Lung cancer Colorectal cancer Social History Smoking Status: Never smoker Second Hand Exposure: No; Hx Alcohol Use: No Hx Substance Use: No Preferred Language: Hungarian Communication Ability: Effective Visual Impairment: Limited Hearing Ability: Normal Computer Applications Developer Required: No Beliefs That Will Affect Care: None marital status: / Current Living Situation: Family Current Living Situation Comment: lives with son current occupational status: retired How many Children do You have: 2 Feels Safe at Home: Yes Childhood Exposure to Second-Hand Smoke: No Diet Comment: Regular diet caffeine: Yes (coffee) Dental Care, Regularly: Yes Physical Activity Frequency: 1-2 Times per Week Seatbelt Use: always Sunscreen Use: Yes Assistive Devices: Glasses and Walker Review of Systems Review of Systems: All systems reviewed & are unremarkable except as noted in HPI & below Physical Exam Physical Exam: Constitutional: Well-developed, well-nourished patient, in no acute distress, pleasant, intact memory. Vitals as above. HEENT: No scleral injection or discharge. Moist mucous membranes. Neck: Supple without lymphadenopathy or thyromegaly. Trachea midline. No JVD. Lungs: Clear to auscultation bilaterally with good effort. Cardiac: RRR. No murmurs. Trace bilateral nonpitting edema. 2+ distal peripheral pulses. Abdomen: Bowel sounds present. Soft, nontender, and nondistended.No guarding. No hepatosplenomegaly. MSK: No cyanosis or clubbing. Extremities motor strength 5/5. Skin: No rashes, warm, dry. Neurologic: no focal deficits Results & Data Results & Data ([facility]) Vital Signs (Past 12 Hours) Vital Signs Temp Pulse Resp BP Pulse Ox O2 Del Method O2 Flow Rate 03/26/22 13:22 37.0 C 86 19 141/76 H 98 Nasal Cannula 2 Laboratory Results Laboratory Results WBC 13.82 K/ul (4.8-10.8) H 03/26/22 17:50 RBC 4.23 M/uL (3.93-5.22) 03/26/22 17:50 Hgb 14.2 g/dl (12.0-16.0) 03/26/22 17:50 Hct 41.8 % (34.1-44.9) 03/26/22 17:50 MCV 98.8 fL (80.0-100.0) 03/26/22 17:50 MCH 33.6 pg (25.0-34.0) 03/26/22 17:50 MCHC 34.0 g/dL (32.0-36.0) 03/26/22 17:50 RDW Std Deviation 45.0 fL (36.4-46.3) 03/26/22 17:50 RDW Coeff of José Miguel 12.3 % (11.5-14.5) 03/26/22 17:50 Plt Count 200 K/uL (130-400) 03/26/22 17:50 MPV 9.9 fL (9.4-12.3) 03/26/22 17:50 Immature Gran % (Auto) 0.7 % 03/26/22 17:50 Neut % (Auto) 55.3 % 03/26/22 17:50 Lymph % (Auto) 30.2 % 03/26/22 17:50 Clinch % (Auto) 11.6 % 03/26/22 17:50 Eos % (Auto) 1.4 % 03/26/22 17:50 Baso % (Auto) 0.8 % 03/26/22 17:50 Neut # (Auto) 7.63 K/uL (1.4-6.5) H 03/26/22 17:50 Lymph # (Auto) 4.18 K/uL (1.2-3.4) H 03/26/22 17:50 Clinch # (Auto) 1.61 K/uL (0.24-0.82) H 03/26/22 17:50 Eos # (Auto) 0.20 K/uL (0-0.50) 03/26/22 17:50 Baso # (Auto) 0.11 K/uL (0-0.2) 03/26/22 17:50 Immature Gran # (Auto) 0.09 K/uL (0.00-0.02) H 03/26/22 17:50 PT 10.7 Seconds (9.0-12.0) 03/26/22 17:50 INR 1.0 (0.9-1.1) 03/26/22 17:50 APTT 31.9 Seconds (21.0-31.0) H 03/26/22 17:50 PTT Ratio 1.2 03/26/22 17:50 Sodium 137 mmol/L (136-145) 03/26/22 17:50 Potassium 3.8 mmol/L (3.5-5.1) 03/26/22 17:50 Chloride 101 mmol/L (98-107) 03/26/22 17:50 Carbon Dioxide 29 mmol/L (21-32) 03/26/22 17:50 Anion Gap 7 (3-11) 03/26/22 17:50 BUN 14 mg/dl (6-23) 03/26/22 17:50 Creatinine 0.78 mg/dl (0.6-1.2) 03/26/22 17:50 Est Cr Clr Drug Dosing Not Reportable 03/26/22 17:50 Est GFR ( Amer) 79.2 ml/min 03/26/22 17:50 Est GFR (Non-Af Amer) 68.4 ml/min 03/26/22 17:50 BUN/Creatinine Ratio 17.9 (10-20) 03/26/22 17:50 Glucose 96 mg/dl (70-99(Fasting)) 03/26/22 17:50 Calcium 9.4 mg/dl (8.5-10.1) 03/26/22 17:50 Magnesium 2.1 mg/dl (1.7-2.4) 03/26/22 17:50 Total Bilirubin 0.5 mg/dl (0.2-1.0) 03/26/22 17:50 AST 26 U/L (13-39) 03/26/22 17:50 ALT 10 U/L (7-52) 03/26/22 17:50 Alkaline Phosphatase 80 U/L (34-104) 03/26/22 17:50 Troponin I High Sens 125.5 pg/ml (0-14) H* 03/26/22 17:50 Total Protein 8.0 gm/dl (6.0-8.3) 03/26/22 17:50 Albumin 4.2 gm/dl (3.4-5.0) 03/26/22 17:50 Globulin 3.8 gm/dl (2.5-4.0) 03/26/22 17:50 Albumin/Globulin Ratio 1.1 (0.9-2) 03/26/22 17:50 Impressions Chest X-Ray 03/26/22 13:25 XR chest 2V PA/lateral CLINICAL HISTORY: SOB TECHNIQUE: 2 views of the chest were obtained. Comparison: Comparison is made to chest radiograph 10/18/2021 FINDINGS: No lines and tubes are seen. Calcified aortic knob is seen. The lungs are clear. No evidence of pleural effusion or pneumothorax. IMPRESSION: No acute abnormalities and in particular no evidence of pneumonia. ACT 112: Negative or not required by law. Electronically signed by: Chintan Marks M.D. 03/26/2022 1:45 PM Supervising Physician Co-Signing Physician Notes I supervised Chase Alvarez DO on this admission. I interviewed and examined the patient independently of him. The plan is as written in the note except for any following changes/exceptions: None 86yo with single prior episode of afib presents with elevated BP and HR and fairly mild, self-resolving symptoms of fatigue and weakness. Episode seems most likely to be transient afib vs. anxiety. ACS and PE both seem unlikely. Pulmonary issue seems unlikely with clear CXR. Shortness of breath resolved as well. At this point, with downtrending troponin, will monitor overnight on telemetry. Will get PT/OT to work with her as she reports significant neuropathy and requires aides for some of her ADLs. Otherwise, hopefully discharge tomorrow. Resident Activity Tracking Resident Involvement: Resident Care Provided Care Provided: Adult Hospital Medicine
[2022-03-26 21:52] LABS: Influenza A virus by PCR Negative (Neg); Influenza B virus by PCR Negative (Neg); RSV by PCR Negative (Neg); SARS CoV2 RNA(COVID-19) Ceph NEGATIVE (Negative)
[2022-03-26] MEDS ORDERED: ONDANSETRON INJ 2 MG/ML 2 ML VIAL IV PRN (23:30)
[2022-03-26] MEDS ORDERED: ACETAMINOPHEN 325 MG TAB PO PRN (23:30)
--- NOTE | 2022-03-26 23:47 | Billing Data ---
Date of Service March 26, 2022 Coding Level of Care Code INT OBSERVATION CARE 70M LVL 3
[2022-03-27] MEDS: PHENobarbitaL 15 MG TAB PO SCH ×2 (00:40→05:35)
[2022-03-27] MEDS: ENOXAPARIN INJ 40 MG/0.4 ML SYR SQ SCH ×2 (00:41→13:41)
[2022-03-27] MEDS ORDERED: GABAPENTIN 100 MG CAP PO STA (00:48)
[2022-03-27] MEDS ORDERED: PHENYTOIN SODIUM ER 100 MG CAP PO STA (00:48)
[2022-03-27 06:20] LABS: Basophils % (auto) 0.9 %; Eosinophils # (auto) 0.52 K/uL (0-0.50); Eosinophils % (auto) 4.9 %; Hematocrit (blood only) 37.1 % (34.1-44.9); Immature Granulocytes # (auto) 0.05 K/uL (0.00-0.02); Immature Granulocytes % (auto) 0.5 %; Lymphocytes # (auto) 2.83 K/uL (1.2-3.4); Lymphocytes % (auto) 26.9 %; Mean Corpuscular Hemoglobin 34.1 pg (25.0-34.0); Mean Corpuscular Volume 97.4 fL (80.0-100.0); Monocytes # (auto) 1.25 K/uL (0.24-0.82); Monocytes % (auto) 11.9 %; Neutrophils # (auto) 5.79 K/uL (1.4-6.5); Neutrophils % (auto) 54.9 %; Platelet Count 180 K/uL (130-400); RDW Coefficient of Variation 12.3 % (11.5-14.5); RDW Standard Deviation 43.8 fL (36.4-46.3); Red Blood Count 3.81 M/uL (3.93-5.22); White Blood Count 10.54 K/ul (4.8-10.8)
[2022-03-27] MEDS ORDERED: LEVOTHYROXINE SODIUM 50 MCG TABLET PO SCH (06:30)
[2022-03-27 06:45] LABS: BUN Creatinine Ratio 19.7 (10-20); Calcium 8.6 mg/dl (8.5-10.1); Creatinine Clr Calc Pharmacy 57.3 ml/min; Est GFR (African American) 88.8 ml/min; Est GFR (Non-African American) 76.6 ml/min; Potassium 3.8 mmol/L (3.5-5.1)
[2022-03-27] MEDS ORDERED: POTASSIUM CHLORIDE CRTAB 20 MEQ TABCR PO STA (08:45)
[2022-03-27] MEDS ORDERED: METOPROLOL SUCC 50MG EXT REL TAB PO SCH (09:00)
[2022-03-27] MEDS ORDERED: TELMISARTAN 40 MG TAB PO SCH (09:00)
[2022-03-27] MEDS ORDERED: ASPIRIN 81 MG ECTAB PO SCH (09:00)
[2022-03-27] MEDS: PHENYTOIN SODIUM ER 100 MG CAP PO SCH ×2 (09:04→13:41)
--- NOTE | 2022-03-27 09:40 | Electrocardiogram Report ---
Test Reason : Blood Pressure : / mmHG Vent. Rate : 070 BPM Atrial Rate : 070 BPM P-R Int : 168 ms QRS Dur : 090 ms QT Int : 408 ms P-R-T Axes : 067 006 049 degrees QTc Int : 440 ms Poor data quality, interpretation may be adversely affected Normal sinus rhythm Normal ECG When compared with ECG of 18-OCT-2021 17:10, No significant change was found Confirmed by Mahamed Hitchcock ([id number]) on 03/27/2022 9:39:29 AM Referred By: REFERRED SELF Confirmed By:Jonathan Hitchcock
--- NOTE | 2022-03-27 10:07 | XCELERA ---
[id number]
[2022-03-27] MEDS ORDERED: PHENobarbitaL 15 MG TAB PO SCH (14:00)
--- NOTE | 2022-03-27 19:04 | Discharge Summary ---
Date of Service March 27, 2022 Admission HPI Per Admitting Provider 86 yo female with PMHx of afib on aspirin, peripheral neuropathy, HTN, seizure disorder presents with shortness of breath and fatigue. After breakfast this morning she began feeling sob at rest and "felt weird" like she was suddenly fatigued. Denies chest pain, fevers, headache, abd pain, N/V/D, dysuria. When she checked her vitals at the time, her HR was in the low 100s and BP was ~180 systolic. After arriving to the hospital a few hours later, she started feeling better and is now essentially asymptomatic. Laying in bed she does not feel short of breath at the moment but hasn't tried moving around yet. She does have a h/o a single episode of afib after a cholecystectomy last year. An event monitor afterwards showed no signs of repeat afib and has felt normal since. She follows with Dr. Hanks (cardiology). It appears anticoagulation was previously discussed but it was decided she go only on aspirin at the time. Denies alcohol use. Non-smoker. No significant changes in diet. Compliant with meds. Denies recent travel or prolonged sitting. No h/o DVT. Admission Exam Per Admitting Provider Constitutional: Well-developed, well-nourished patient, in no acute distress, pleasant, intact memory. Vitals as above. HEENT: No scleral injection or discharge. Moist mucous membranes. Neck: Supple without lymphadenopathy or thyromegaly. Trachea midline. No JVD. Lungs: Clear to auscultation bilaterally with good effort. Cardiac: RRR. No murmurs. Trace bilateral nonpitting edema. 2+ distal peripheral pulses. Abdomen: Bowel sounds present. Soft, nontender, and nondistended.No guarding. No hepatosplenomegaly. MSK: No cyanosis or clubbing. Extremities motor strength 5/5. Skin: No rashes, warm, dry. Neurologic: no focal deficits Principal Diagnosis fatigue Discharge Exam Constitutional WD/WN, vitals as above Eyes + anicteric sclerae ENMT external ear and nose normal, oropharynx normal Neck trachea midline, no thyromegaly Respiratory normal respiratory effort, lungs clear to auscultation Cardiovascular RRR, no murmur, no edema Musculoskeletal Head/Neck/Chest: normocephalic and head atraumatic Skin no rashes, warm and dry Neurologic moves all extremities Psychiatric A+Ox3, euthymic affect Discharge Data Allergies Allergy/AdvReac Type Severity Reaction Status Date / Time adhesive tape Allergy Intermediate Red sore, Verified 03/26/22 20:31 blisters (from electrodes) hydrochlorothiazide AdvReac Severe Seizure Verified 03/26/22 20:31 activity amlodipine AdvReac Intermediate Dizziness Verified 03/26/22 20:31 enalapril AdvReac Intermediate Cough Verified 03/26/22 20:31 Consultations 03/26/22 20:58 ED Decision to Admit Stat Hospital Course (1) Dyspnea: 86 yo female with PMHx of paroxysmal a-fib who was admitted for evaluation shor tness of breath and fatigue. Dyspnea - resolved - presented with sudden onset dyspnea and fatigue after eating breakfast. When she felt symptoms coming on she checked her HR and it was elevated to 106. - symptoms self resolved within a few hours after arriving to the hospital. - vitals were normal while in the hospital - She did have an elevated Trop, but without ekg changes or chest pain. F urthermore the trop downtrended. ACS not the cause. - Her echo showed normal systolic function (noted elevated RV pressure at 50- 60mmHg, which appears to be new compared to previous echo in 2020) - Her CXR showed no acute process, pulmonary origin unlikely. Well's PE score is 0, giving her a 1.3% chance of PE. Chest CTA deferred. - She did have one episodic of paroxysmal Afib in the past, it occurred in the setting of a cholecystectomy. It is possible she transiently went into this arrhythmia which made her symptomatic, and then converted back to sinus by the time she arrived at the hospital. Otherwise, we have no explanation other than possible anxiety or dehydration for her symptoms. I did write a script for her to have an event monitor - next time she feels symptomatic she can press a button and record her cardiac activity. The report is to be sent to her PCP, Dr. Gamble. Leukocytosis - resolved - WBC 13.8 on arrival normalized without antibiotics by the time of discharge - rsv/flu/covid neg - chest XR unremarkable as above - No dysuria or symptoms of UTI. Elevated troponin, peaked -hsTrop 125 in ED. 2hr repeat 114. -suspect due to demand ischemia in setting of afib -EKG normal sinus with no ST changes Atrial fibrillation -single episode in 2020 at the time of her cholecystectomy -EKG showed normal sinus rhythm -follow with Dr. Hanks cardiology. On home aspirin for anti-platelet therapy HTN -cont. home metoprolol, telmisartan peripheral neuropathy -cont. home gabapentin hypothyroidism -cont. home levothyroxine -TSH ordered seizure disorder -cont. home phenytoin and phenobarbital (2) Leukocytosis: (3) Antiplatelet or antithrombotic long-term use: (4) Paroxysmal atrial fibrillation: (5) Elevated troponin: (6) Peripheral neuropathy: (7) Hypothyroidism: (8) Seizure disorder: (9) Hypertension: Total Time Total Time Spent Total Time Spent (In Minutes): 35 Total Time Includes: Examination of the Patient, Discharge Planning and Medication Reconciliation Discharge Plan Discharge Items Patient Disposition: Home - Self-Care Reason For Visit: dyspnea, fatigue Discharge Diagnosis: fatigue Condition on Discharge: Good Activity: Resume your previous activity Non-emergency contact: Primary Care Provider Call non-emergency contact if: your symptoms worsen Follow-up/Referrals: Cyrus Gamble DO [Primary Care Provider] - Diet: Regular Addtl Attending Provider Instructions: You were hospitalized at [facility] after suddenly feeling weak while eating breakfast. Many tests were done on your while you were in the hospital, and unfortunately the cause of your symptoms was never fully elu cidated. Your chest Xray showed no evidence of pneumonia. Your EKG was normal. You had an echocardiogram (ultrasound of your heart) which showed normal pumping function. You were tested for covid and the flu and both were negative. Your electrolytes and kidney function were also found to be normal. It is possible the cause of your symptoms was due to you temporarily going into an irregular heart rhythm such as atrial fibrillation. This same event happened after you had gallbladder surgery. However, by the time you got to the hospital, your heart rhythm was normal. It is certainly possible that you temporarily went into the irregular rhythm, and then returned to a normal rhythm shortly thereafter. Fortunately, your symptoms improved by the time of discharge. Arrangements were made for you to have a cardiac event monitor - it will be shipped to your house. If you feel the same symptoms again, you can push a button on the monitor and it will record your heart rhythm at that time. This way, we will be able to tell if you are slipping into, and out of, irregular heart rhythms. Please schedule a follow up visit with Dr. Gamble, your family doctor, in the next week. Pending Studies at Discharge: No Stand-Alone Forms: My [facility], Smoking Cessation Medications and DC Order Prescriptions: Continued phenytoin sodium extended 100 mg capsule 100 mg PO TID Qty: 90 1RF Rx Instructions: Dilantin 100mg Brand Necessary; TAKES AT QAM, 1400 & QHS. phenobarbital 16.2 mg tablet 16.2 mg PO .COMPLEX Qty: 450 0RF Rx Instructions: 16.2 mg tablet take 2 tabs in the morning @ 6 am, 1 tab in the afternoon @ 2 pm, 2 tabs tablets at night 10 pm lorazepam 1 mg tablet 0.5 - 1 mg PO DAILY PRN (Reason: seizure activity) 30 Days Qty: 30 0RF telmisartan 80 mg tablet 80 mg PO QAM Qty: 90 3RF metoprolol succinate 50 mg tablet extended release 24 hr 50 mg PO QAM Qty: 90 3RF gabapentin 100 mg capsule 200 mg PO HS cholecalciferol (vitamin D3) 50 mcg (2,000 unit) tablet 2,000 unit PO QDL Caltrate + D3 Plus Minerals 300 mg-800 unit -25 mg-0.5 mg tablet 1 tab PO QAM acetaminophen [Tylenol Extra Strength] 500 mg tablet 500 mg PO Q6H PRN (Reason: Pain) aspirin [Adult Low Dose Aspirin] 81 mg tablet,delayed release (DR/EC) 81 mg PO QAM Rx Instructions: hold 5 days prior to surgery levothyroxine 50 mcg tablet 50 mcg PO QAM Discharge Orders: Discharge Order (Routine); Ordered 03/27/22 Ordered By: Debi Valera Admission Data Admit Date/Time: 03/26/22 22:25 Attending Provider: Debi Valera Admit Provider: Chase Alvarez Primary Care Provider: Cyrus Gamble Other Providers: Jacques Hanks Jr ; Jose Jason. Other Interventions: Discharge Summary Assessment (RN) Last Done: 03/27/22 16:54 Coding Level of Care Code 11065 OBS Care - Discharge Diagnoses Dyspnea R06.00 Leukocytosis D72.829 Antiplatelet or antithrombotic long-term use Z79.02 Paroxysmal atrial fibrillation I48.0 Elevated troponin R77.8 Peripheral neuropathy G62.9 Hypothyroidism E03.9 Seizure disorder G40.909 Hypertension I10
[2022-03-27] MEDS ORDERED: GABAPENTIN 100 MG CAP PO SCH (21:00)
== END 2022-03-27 16:54 | disposition home or self-care (01) ==
LOC: ED 12:59 → EDINP 12:59 → SUATTDRO 22:25 → EDINP 23:32